=== PATIENT | female | born 1950 | race Hispanic/Latino ===

== ENCOUNTER 2017-11-13 20:23 | Inpatient (IN) | payer MEDICARE, OTHER ==
[2017-11-13] MEDS ORDERED: Albuterol-Ipratrop 3 mg / 0.5 (3 ml) UD INH STA ×3 (21:13→21:15)
--- NOTE | 2017-11-13 21:27 | ED PDOC ---
HPI: SOB/CHF/COPD Time Seen by Provider: 11/13/17 20:41 Chief Complaint (Nursing): Shortness Of Breath Chief Complaint (Provider): Shortness Of Breath History Per: Patient History/Exam Limitations: no limitations Onset/Duration Of Symptoms: Days (x this morning) Additional Complaint(s): Sara is a 67 year old female, with a history of COPD, who presents to the ED complaining of difficulty breathing that started this morning. Patient reports chest pressure this morning. Reports dry cough, but no wheezing, vomiting, diarrhea, chest pain, fever. Patient states she has taken her nebulizer a couple of times this afternoon with mild improvements. Patient is not on oxygen at home. PMD: Irma Past Medical History Reviewed: Historical Data, Nursing Documentation, Vital Signs Vital Signs: Last Vital Signs Temp 98 F 11/13/17 20:32 Pulse 81 11/13/17 23:04 Resp 17 11/13/17 23:25 BP 157/83 H 11/13/17 20:32 Pulse Ox 95 11/13/17 23:25 - Medical History PMH: Asthma, COPD, Hypercholesterolemia Denies: Chronic Kidney Disease - Surgical History Surgical History: No Surg Hx - Family History Family History: States: Unknown Family Hx - Home Medications Home Medications: Ambulatory Orders Medication Instructions Recorded Simvastatin [Zocor] 20 mg PO HS #0 tablet 07/09/16 Tiotropium [Spiriva] 18 mcg IH DAILY #0 cap 07/09/16 Fluticasone/Salmeterol 100/50 1 puff IH DAILY 11/13/17 [Advair Diskus 100/50] - Allergies Allergies/Adverse Reactions: Allergies Allergy/AdvReac Type Severity Reaction Status Date / Time acetylcysteine AdvReac ITCHING Verified 10/18/15 19:15 [From Mucomyst] Review of Systems ROS Statement: Except As Marked, All Systems Reviewed And Found Negative Constitutional: Negative for: Fever Cardiovascular: Positive for: Other (chest pressure). Negative for: Chest Pain Respiratory: Positive for: Cough (dry), Other (difficulty breathing). Negative for: Wheezing Gastrointestinal: Negative for: Vomiting, Diarrhea Physical Exam - Reviewed Nursing Documentation Reviewed: Yes Vital Signs Reviewed: Yes - Physical Exam Appears: Positive for: Well (Comfortable), No Acute Distress Head Exam: Positive for: ATRAUMATIC, NORMAL INSPECTION, NORMOCEPHALIC Skin: Positive for: Normal Color, Dry Eye Exam: Positive for: Normal appearance, EOMI, PERRL ENT: Positive for: Normal ENT Inspection Neck: Positive for: Normal Cardiovascular/Chest: Positive for: Regular Rate, Rhythm Respiratory: Positive for: Decreased Breath Sounds (bilaterally). Negative for : Wheezing Gastrointestinal/Abdominal: Positive for: Normal Exam Back: Positive for: Normal Inspection Extremity: Positive for: Normal ROM. Negative for: Deformity Neurologic/Psych: Positive for: Alert, Oriented (x 3). Negative for: Motor/ Sensory Deficits - Laboratory Results Result Diagrams: 11/13/17 21:35 11/13/17 21:35 - ECG ECG Rhythm: Positive for: Normal QRS, Normal ST Segment, Sinus Rhythm (Normal) Rate: 81 O2 Sat by Pulse Oximetry: 99 (RA) Pulse Ox Interpretation: Normal - Radiology X-Ray: Interpreted by Me, Viewed By Me X-Ray Interpretation: COPD - Progress Re-evaluation Time: 23:04 Condition: Re-examined, Improving,but remains with symptoms Nebulizer Treatments/Peak Flow - Duonebs Number of Bronchodilator Doses given?: 3 - Steroid Treatment Steroid: IV - Clinical Response Clinical Response: Improved Medical Decision Making Medical Decision Making: Time: 21:13 Impression(s): Shortness of breath Differentials include but not limited to: COPD Exacerbation, ACS, CHF, PE Plan: - EKG - BNP - BMP - Troponin I - CBC - D-Dimer - Chest X-Ray - Duoneb 3 mg/0.5 mg (3 ml) UD - Duoneb 3 mg/0.5 mg (3 ml) UD - Duoneb 3 mg/0.5 mg (3 ml) UD - SOLU-Medrol 125 mg IVP STAT - Peak Flow Pre/Post Treatment - Peak Flow Pre/Post Treatment D-Dimer, Quantitative Reveals 171 ng/mlDDU [within range] Scribe Attestation: Documented by Gen Carranza, acting as a scribe for Frederic Morales MD. Provider Scribe Attestation: All medical record entries made by the Scribe were at my direction and personally dictated by me. I have reviewed the chart and agree that the record accurately reflects my personal performance of the history, physical exam, medical decision making, and the department course for this patient. I have also personally directed, reviewed, and agree with the discharge instructions and disposition. Disposition - Clinical Impression Clinical Impression: COPD exacerbation - Patient ED Disposition Is Patient to be Admitted: Yes Discussed With DrFederico: Negro Solis Doctor Will See Patient In The: Hospital Counseled Patient/Family Regarding: Studies Performed, Diagnosis - Disposition Disposition Time: 11:00 Condition: FAIR - Pt Status Changed To: Hospital Disposition Of: Observation - POA Present On Arrival: None
[2017-11-13 21:42] LABS: BASO % 0.3 % (0.0-2.0); EOS # 0.1 K/uL (0.0-0.7); HEMOGLOBIN 13.5 g/dL (12.0-16.0); LYMPH # 1.1 K/uL (1.0-4.3); LYMPH % 15.7 % (20.0-40.0); MEAN CELL VOLUME 87.6 fl (81.0-99.0); MEAN CORPUSCULAR HEMOGLOBIN 28.8 pg (27.0-31.0); MEAN CORPUSCULAR HGB CONC 32.9 g/dL (33.0-37.0); MEAN PLATELET VOLUME 6.6 fl (7.2-11.7); MONO # 0.5 K/uL (0.0-0.8); MONO % 7.6 % (0.0-10.0); NEUT % 74.4 % (50.0-75.0); RBC 4.67 Mil/uL (3.80-5.20); RED CELL DISTRIBUTION WIDTH 14.5 % (11.5-14.5); WHITE BLOOD COUNT 6.8 K/uL (4.8-10.8)
[2017-11-13 21:52] LABS: BLOOD UREA NITROGEN 10 mg/dl (7-17); GFR AFRICAN-AMERICAN > 60; GFR NON-AFRICAN AMERICAN > 60
[2017-11-13 22:04] LABS: B-TYPE NATRIURETIC PEPTIDE 144 pg/ml (0-900)
[2017-11-14] MEDS ORDERED: methylPREDNISolone 80 MG in Sodium Chloride 0.9% 50 ML IVPB SCH (01:15)
[2017-11-14] MEDS: Albuterol-Ipratrop 3 mg / 0.5 (3 ml) UD INH SCH ×4 (02:21→19:26)
[2017-11-14 06:46] LABS: HEMOGLOBIN 13.5 g/dL (12.0-16.0); MEAN CELL VOLUME 87.3 fl (81.0-99.0); MEAN CORPUSCULAR HEMOGLOBIN 28.7 pg (27.0-31.0); MEAN CORPUSCULAR HGB CONC 32.8 g/dL (33.0-37.0); RBC 4.7 Mil/uL (3.80-5.20); RED CELL DISTRIBUTION WIDTH 14.1 % (11.5-14.5); WHITE BLOOD COUNT 6.2 K/uL (4.8-10.8)
[2017-11-14 06:59] LABS: BLOOD UREA NITROGEN 12 mg/dl (7-17); CALCIUM 8.9 mg/dL (8.4-10.2); GFR AFRICAN-AMERICAN > 60; GFR NON-AFRICAN AMERICAN > 60
[2017-11-14 08:06] LABS: ABG ALLEN TEST YES; ARTERIAL BLOOD GAS HCO3 28.1 mmol/L (21-28); ARTERIAL BLOOD GAS HEMOGLOBIN 14.2 g/dL (11.7-17.4); ARTERIAL BLOOD GAS O2 CAPACITY 19.1 mL/dL (16-24); ARTERIAL BLOOD GAS O2 CONTENT 18.7 ML/dL (15-23); ARTERIAL BLOOD GAS O2 SAT 98.1 % (95-98); ARTERIAL BLOOD GAS PCO2 50 mm/Hg (35-45); ARTERIAL BLOOD GAS PH 7.39 (7.35-7.45); ARTERIAL BLOOD GAS PO2 77 mm/Hg (80-100); ARTERIAL BLOOD GAS TCO2 31.8 mmol/L (22-28)
[2017-11-14] MEDS: Fluticasone-Salmeterol 250-50mcg Diskus IH SCH ×2 (08:15→21:05)
[2017-11-14] MEDS: Enoxaparin 40 mg Syringe SC SCH (08:16)
[2017-11-14] MEDS: Tiotropium 18 mcg Cap For Inhalation IH SCH (08:23)
[2017-11-14] MEDS: Azithromycin 500 MG in Sodium Chloride 0.9% 250 ML IVPB SCH (08:23)
[2017-11-14] MEDS: Promethazine 12.5 mg/10 ml Syrup PO PRN ×2 (08:24→15:46)
[2017-11-14] MEDS ORDERED: Sodium Chloride 3% for Inhalation 4 ML VIAL.NEB IH PRN (08:32)
[2017-11-14] MEDS ORDERED: Phenol 1.4% Throat Spray MT PRN (08:32)
--- NOTE | 2017-11-14 08:40 | RAD ---
PROCEDURE: CHEST RADIOGRAPH, 1 VIEW HISTORY: Dyspnea COMPARISON: 07/08/2016 FINDINGS: LUNGS: The lungs are hyperinflated and there is peribronchial thickening with chronic changes in both lungs. No focal consolidation. PLEURA: No pneumothorax or pleural fluid seen. CARDIOVASCULAR: Normal. OSSEOUS STRUCTURES: No significant abnormalities. VISUALIZED UPPER ABDOMEN: Normal. OTHER FINDINGS: None. IMPRESSION: No active pulmonary disease. COPD.
--- NOTE | 2017-11-14 08:52 | HP ---
HISTORY OF PRESENT ILLNESS: Ms. Cartagena is a 67-year-old female who was admitted via the Emergency Room because of progressively worsening shortness of breath and exercise intolerance x24 hours. She showed up in the Emergency Room after she was brought in by her daughter because of the above symptoms associated with dry cough and chest tightness. She was admitted after she received several bronchodilator therapies and oxygen and oxygen saturation was in the 80s. She denies chest pain or palpitations. PAST MEDICAL HISTORY: Remarkable for chronic obstructive pulmonary disease and hyperlipidemia. FAMILY HISTORY: Noncontributory. SOCIAL HISTORY: She quit smoking many years ago. Does not drink alcohol. Does not use drugs and lives at home with her . REVIEW OF SYSTEMS: Essentially remarkable for occasional shortness of breath. MEDICATIONS: Include simvastatin, Spiriva, Advair, and Proventil. PHYSICAL EXAMINATION: GENERAL: The patient is alert and oriented, appears to still have some dyspnea at rest and on mild exertion. VITAL SIGNS: Blood pressure is 157/83 with the pulse of 81, respiratory rate is 18 per minute, and O2 sat is 95%, but dropped to 80% on ambulation. Temperature is 98 degrees Fahrenheit. SKIN: Shows fair turgor. HEENT: Pupils are equal and reactive to light and accommodation. Mouth shows fair hygiene with mucous congestion of pharynx. LUNGS: Poor aeration bilaterally with wheezing and audible rales. HEART: Regular. BREASTS: Normal. ABDOMEN: Soft and nontender, no organomegaly. EXTREMITIES: Shows no edema or cyanosis. CENTRAL NERVOUS SYSTEM: Grossly intact. LABORATORY DATA: Remarkable for WBC of 6.8, hemoglobin of 13.5, and platelet count of 170,000. Sodium 145, potassium 4.0, BUN 10, creatinine 0.4, and serum glucose 99. EKG normal sinus rhythm. Chest x-ray official report pending, but read by me shows no acute cardiopulmonary pathology. Arterial blood gas done on room air; pH of 7.39, pCO2 of 50, pO2 of 77, bicarbonate of 28.1, and O2 sat of 98.1. IMPRESSION: Acute exacerbation of chronic obstructive pulmonary disease, probably secondary to upper respiratory tract infection, and history of hyperlipidemia. PLAN: The plan is intravenous steroids as well as bronchodilators, oxygen, antitussives were given. Sputum will be sent for gram stain and cultures. The patient will be discharged home once clinically stable. Negro Solis MD [facility] # [phone]
--- NOTE | 2017-11-14 11:42 | CARD ---
APPROVED REPORT EKG Measurement Heart [id number] <Conclusion> Normal sinus rhythm Normal ECG
[2017-11-15] MEDS: Albuterol-Ipratrop 3 mg / 0.5 (3 ml) UD INH SCH ×4 (01:01→19:17)
[2017-11-15] MEDS: Enoxaparin 40 mg Syringe SC SCH (09:40)
[2017-11-15] MEDS: Fluticasone-Salmeterol 250-50mcg Diskus IH SCH ×2 (09:40→21:24)
[2017-11-15] MEDS: Tiotropium 18 mcg Cap For Inhalation IH SCH (09:41)
[2017-11-15] MEDS: Azithromycin 500 MG in Sodium Chloride 0.9% 250 ML IVPB SCH (09:46)
[2017-11-15] MEDS ORDERED: Azithromycin 500 MG in Sodium Chloride 0.9% 250 ML IVPB SCH (10:15)
--- NOTE | 2017-11-15 10:23 | CP.PCM.PN ---
Subjective - Date & Time of Evaluation Date of Evaluation: 11/15/17 Time of Evaluation: 10:23 - Subjective Subjective: still dyspneic on mild exertion coughing no chest pain Objective - Vital Signs/Intake and Output Vital Signs (last 24 hours): Temp Pulse Resp BP Pulse Ox 98 F 88 20 113/68 98 11/15/17 08:13 11/15/17 08:13 11/15/17 08:13 11/15/17 08:13 11/15/17 08:13 - Medications Medications: Current Medications Albuterol/Ipratropium (Duoneb 3 Mg/0.5 Mg (3 Ml) Ud) 3 ml INH RQ6 [facility] Last Admin: 11/15/17 07:25 Dose: 3 ml Atorvastatin Calcium (Lipitor) 10 mg PO HS [facility] Last Admin: 11/14/17 21:05 Dose: 10 mg Enoxaparin Sodium (Lovenox) 40 mg SC DAILY LORE PRN Reason: Protocol Last Admin: 11/15/17 09:40 Dose: 40 mg Azithromycin 500 mg/ Sodium (Chloride) 250 mls @ 250 mls/hr IVPB DAILY LORE PRN Reason: Protocol Methylprednisolone (Solu-Medrol) 80 mg IV Q8 [facility] Last Admin: 11/15/17 00:29 Dose: 80 mg Phenol/Menthol (Phenaseptic 1.4% Throat [place]) 1 spry MT Q2 PRN PRN Reason: Sore Throat Last Admin: 11/14/17 14:22 Dose: 1 spr Promethazine HCl (Phenergan Syrup) 12.5 mg PO Q6 PRN PRN Reason: Cough Last Admin: 11/14/17 15:46 Dose: 12.5 mg Fluticasone/Salmeterol (Advair Diskus 250/50) 1 puff IH Q12 [facility] Last Admin: 11/15/17 09:40 Dose: 1 inh Tiotropium [place] (Spiriva) 18 mcg IH DAILY [facility] Last Admin: 11/15/17 09:41 Dose: 18 mcg - Labs Labs: 11/14/17 05:30 11/14/17 05:30 - Constitutional Appears: Chronically Ill - Head Exam Head Exam: ATRAUMATIC, NORMAL INSPECTION, NORMOCEPHALIC - Eye Exam Eye Exam: EOMI, Normal appearance, PERRL Pupil Exam: NORMAL ACCOMODATION, PERRL - ENT Exam ENT Exam: Mucous Membranes Moist, Normal Exam - Neck Exam Neck Exam: Full ROM, Normal Inspection. absent: Lymphadenopathy - Respiratory Exam Respiratory Exam: Decreased Breath Sounds, Rales, Wheezes, NORMAL BREATHING PATTERN - Cardiovascular Exam Cardiovascular Exam: REGULAR RHYTHM, +S1, +S2. absent: Murmur - GI/Abdominal Exam GI & Abdominal Exam: Soft, Normal Bowel Sounds. absent: Tenderness - Rectal Exam Rectal Exam: NORMAL INSPECTION - Extremities Exam Extremities Exam: Full ROM, Normal Capillary Refill, Normal Inspection. absent : Joint Swelling, Pedal Edema - Back Exam Back Exam: NORMAL INSPECTION - Neurological Exam Neurological Exam: Alert, Awake, CN II-XII Intact, Normal Gait, Oriented x3 - Psychiatric Exam Psychiatric exam: Normal Affect, Normal Mood - Skin Skin Exam: Dry, Intact, Normal Color, Warm Assessment and Plan - Assessment and Plan (Free Text) Assessment: copd exac Plan: taper steroids d/c in am if stable
[2017-11-15] MEDS: MethylPREDNISolone 40 mg Vial IV SCH ×2 (11:34→21:24)
[2017-11-15] MEDS: Promethazine 12.5 mg/10 ml Syrup PO PRN (16:15)
[2017-11-15 23:55] VITALS: O2SAT 95
[2017-11-16] MEDS: Albuterol-Ipratrop 3 mg / 0.5 (3 ml) UD INH SCH ×2 (01:38→07:06)
[2017-11-16] MEDS: Promethazine 12.5 mg/10 ml Syrup PO PRN (03:48)
--- NOTE | 2017-11-16 08:36 | CP.PCM.DIS ---
Provider - Provider Date of Admission: 11/14/17 08:26 Attending physician: Negro Solis MD Time Spent in preparation of Discharge (in minutes): 30 Diagnosis - Discharge Diagnosis (1) Upper respiratory infection Status: Acute (2) COPD exacerbation Status: Acute (3) Hyperlipidemia Status: Acute Hospital Course - Lab Results Lab Results: Most Recent Lab Values WBC 6.2 K/uL (4.8-10.8) 11/14/17 05:30 RBC 4.70 Mil/uL (3.80-5.20) 11/14/17 05:30 Hgb 13.5 g/dL (12.0-16.0) 11/14/17 05:30 Hct 41.1 % (34.0-47.0) 11/14/17 05:30 MCV 87.3 fl (81.0-99.0) 11/14/17 05:30 MCH 28.7 pg (27.0-31.0) 11/14/17 05:30 MCHC 32.8 g/dL (33.0-37.0) L 11/14/17 05:30 RDW 14.1 % (11.5-14.5) 11/14/17 05:30 Plt Count 183 K/uL (130-400) 11/14/17 05:30 MPV 6.6 fl (7.2-11.7) L 11/13/17 21:35 Neut % (Auto) 74.4 % (50.0-75.0) 11/13/17 21:35 Lymph % (Auto) 15.7 % (20.0-40.0) L 11/13/17 21:35 [place] % (Auto) 7.6 % (0.0-10.0) 11/13/17 21:35 Eos % (Auto) 2.0 % (0.0-4.0) 11/13/17 21:35 Baso % (Auto) 0.3 % (0.0-2.0) 11/13/17 21:35 Neut # (Auto) 5.0 K/uL (1.8-7.0) 11/13/17 21:35 Lymph # (Auto) 1.1 K/uL (1.0-4.3) 11/13/17 21:35 [place] # (Auto) 0.5 K/uL (0.0-0.8) 11/13/17 21:35 Eos # (Auto) 0.1 K/uL (0.0-0.7) 11/13/17 21:35 Baso # (Auto) 0.0 K/uL (0.0-0.2) 11/13/17 21:35 D-Dimer, Quantitative 171 ng/mlDDU (0-230) 11/13/17 21:35 pCO2 50 mm/Hg (35-45) H 11/14/17 08:00 pO2 77 mm/Hg (80-100) L 11/14/17 08:00 HCO3 28.1 mmol/L (21-28) H 11/14/17 08:00 ABG pH 7.39 (7.35-7.45) 11/14/17 08:00 ABG Total CO2 31.8 mmol/L (22-28) H 11/14/17 08:00 ABG O2 Saturation 98.1 % (95-98) H 11/14/17 08:00 ABG O2 Content 18.7 ML/dL (15-23) 11/14/17 08:00 ABG Base Excess 4.2 mmol/L (-2.0-3.0) H 11/14/17 08:00 ABG Hemoglobin 14.2 g/dL (11.7-17.4) 11/14/17 08:00 ABG Carboxyhemoglobin 2.4 % (0.5-1.5) H 11/14/17 08:00 POC ABG HHb (Measured) 1.8 % (0.0-5.0) 11/14/17 08:00 ABG Methemoglobin 2.4 % (0.0-3.0) 11/14/17 08:00 ABG O2 Capacity 19.1 mL/dL (16-24) 11/14/17 08:00 Calvin Test Yes 11/14/17 08:00 A-a O2 Difference 10.0 mm/Hg 11/14/17 08:00 Hgb O2 Saturation 93.5 % (95.0-98.0) L 11/14/17 08:00 Vent Mode Ra 11/14/17 08:00 FiO2 21.0 % 11/14/17 08:00 Sodium 142 mmol/l (132-148) 11/14/17 05:30 Potassium 3.6 MMOL/L (3.6-5.0) 11/14/17 05:30 Chloride 102 mmol/L (98-107) 11/14/17 05:30 Carbon Dioxide 31 mmol/L (22-30) H 11/14/17 05:30 Anion Gap 13 (10-20) 11/14/17 05:30 BUN 12 mg/dl (7-17) 11/14/17 05:30 Creatinine 0.4 mg/dl (0.7-1.2) L 11/14/17 05:30 Est GFR ( Amer) > 60 11/14/17 05:30 Est GFR (Non-Af Amer) > 60 11/14/17 05:30 Random Glucose 178 mg/dL (65-105) H 11/14/17 05:30 Calcium 8.9 mg/dL (8.4-10.2) 11/14/17 05:30 Troponin I 0.0210 ng/mL (0.00-0.120) 11/13/17 21:35 NT-Pro-B Natriuret Pep 144 pg/ml (0-900) 11/13/17 21:35 - Hospital Course Hospital Course: cough and sob improved Discharge Exam - Head Exam Head Exam: ATRAUMATIC, NORMAL INSPECTION, NORMOCEPHALIC - Eye Exam Eye Exam: EOMI, Normal appearance, PERRL Pupil Exam: NORMAL ACCOMODATION, PERRL - GI/Abdominal Exam GI & Abdominal Exam: Normal Bowel Sounds - Rectal Exam Rectal Exam: NORMAL INSPECTION - Neurological Exam Neurological exam: Alert, CN II-XII Intact, Normal Gait, Oriented x3, Reflexes Normal - Psychiatric Exam Psychiatric exam: Normal Affect, Normal Mood - Skin Skin Exam: Dry, Intact, Normal Color, Warm Discharge Plan - Follow Up Plan Condition: FAIR Disposition: HOME/ ROUTINE Patient education suggested?: Yes Instructions: Exacerbation of COPD (DC) Additional Instructions: follow up with your primary MD 1 week Referrals: Negro Solis MD [Staff Provider] -
[2017-11-16] MEDS: Enoxaparin 40 mg Syringe SC SCH (09:10)
[2017-11-16] MEDS: Fluticasone-Salmeterol 250-50mcg Diskus IH SCH (09:10)
[2017-11-16 09:11] VITALS: BP 126/71; PULSE 76; RESP 20; TEMP 98.2
[2017-11-16] MEDS: MethylPREDNISolone 40 mg Vial IV SCH (09:11)
[2017-11-16] MEDS: Tiotropium 18 mcg Cap For Inhalation IH SCH (09:13)
[2017-11-16] MEDS ORDERED: Azithromycin 500 MG in Sodium Chloride 0.9% 250 ML IVPB SCH (10:15)
== END 2017-11-16 13:21 | disposition home health service (06) | DRG 192 ==
LOC: H.ER 20:23 → H.ERHOLD 23:05 → H.MEDSURG1 11-14 00:30 → OBSVTOIN 11-14 08:26
PROVIDERS: ADMIT Internal Medicine Pulmonary Disease; ATTEND Internal Medicine Pulmonary Disease
PROC: 3E0F73Z Introduction of Anti-inflammatory into Respiratory Tract, Via Natural or Artificial Opening (ICD-10-PCS; principal; 2017-11-14)
DX: J44.1 Chronic obstructive pulmonary disease with (acute) exacerbation (principal); J06.9 Acute upper respiratory infection, unspecified; E78.5 Hyperlipidemia, unspecified; Z87.891 Personal history of nicotine dependence

== ENCOUNTER 2017-11-23 06:15 | Inpatient (IN) | payer MEDICARE, OTHER ==
[2017-11-23] MEDS ORDERED: Albuterol-Ipratrop 3 mg / 0.5 (3 ml) UD INH STA ×2 (06:36)
[2017-11-23] MEDS ORDERED: Magnesium Sulfate 2 gm/50 ml 2 GM/50 ML BAG IVPB ONE (06:37)
--- NOTE | 2017-11-23 06:45 | ED PDOC ---
HPI: SOB/CHF/COPD Time Seen by Provider: 11/23/17 06:18 Chief Complaint (Nursing): Shortness Of Breath Chief Complaint (Provider): COPD Exacerbation History Per: Patient Onset/Duration Of Symptoms: Days (1 day ago) Current Symptoms Are (Timing): Still Present Additional Complaint(s): 67 yo female, brought in by EMS, with a history of COPD, presents to the ED complaining of worsened shortness of breath and uncontrollable cough, associated with chest pain, onset of 1 day ago. She denies any fevers, chills, recent travel, or sick contacts. Of note, patient reports that she was recently admitted for COPD exacerbation and on arrival to ED she was given 2 duonebs and 125mg of Solumedrol, but was still exhibiting moderate respiratory distress. PCP: Negro Solis I Past Medical History Reviewed: Historical Data, Nursing Documentation, Vital Signs Vital Signs: Last Vital Signs Temp 98.1 F 11/23/17 21:09 Pulse 90 11/23/17 21:09 Resp 18 11/23/17 21:09 BP 152/61 H 11/23/17 21:09 Pulse Ox 92 L 11/23/17 21:09 - Medical History PMH: Asthma, Bronchitis, COPD, Hypercholesterolemia Denies: HIV, Chronic Kidney Disease - Surgical History Other surgeries: bilateral cataract - Family History Family History: States: Unknown Family Hx - Social History Current smoker - smoking cessation education provided: No Ex-Smoker (has not smoked in the last 12 months): Yes Alcohol: None Drugs: Denies - Home Medications Home Medications: Ambulatory Orders Medication Instructions Recorded Simvastatin [Zocor] 20 mg PO HS #0 tablet 07/09/16 Tiotropium [Spiriva] 18 mcg IH DAILY #0 cap 07/09/16 Fluticasone/Salmeterol 250/50 1 puff IH Q12 1 Days #1 puff 11/16/17 [Advair Diskus 250/50] - Allergies Allergies/Adverse Reactions: Allergies Allergy/AdvReac Type Severity Reaction Status Date / Time acetylcysteine AdvReac ITCHING Verified 10/18/15 19:15 [From Mucomyst] Review of Systems ROS Statement: Except As Marked, All Systems Reviewed And Found Negative Constitutional: Negative for: Fever, Chills Cardiovascular: Positive for: Chest Pain Respiratory: Positive for: Cough, Shortness of Breath Physical Exam - Reviewed Nursing Documentation Reviewed: Yes Vital Signs Reviewed: Yes - Physical Exam Appears: Positive for: Well, Non-toxic, No Acute Distress Head Exam: Positive for: ATRAUMATIC, NORMAL INSPECTION, NORMOCEPHALIC Skin: Positive for: Normal Color, Warm, DRY Eye Exam: Positive for: EOMI, Normal appearance, PERRL ENT: Positive for: Normal ENT Inspection Neck: Positive for: Normal, Painless ROM Cardiovascular/Chest: Positive for: Regular Rate, Rhythm. Negative for: Murmur Respiratory: Positive for: Wheezing (faint), Respiratory Distress (moderate), Other (tachypnea; poor lung entry bilaterally) Gastrointestinal/Abdominal: Positive for: Normal Exam, Soft. Negative for: Tenderness Back: Positive for: Normal Inspection Extremity: Positive for: Normal ROM. Negative for: Pedal Edema, Deformity Neurologic/Psych: Positive for: Oriented (x3). Negative for: Motor/Sensory Deficits - Laboratory Results Result Diagrams: 11/23/17 06:45 11/23/17 06:45 - ECG O2 Sat by Pulse Oximetry: 95 (RA) Pulse Ox Interpretation: Normal Medical Decision Making Medical Decision Making: Time: --06:36 Impression: --COPD Exacerbation in setting of recent exacerbation Plan: --VBG --ECG --B-Type Natriuretic --labs --Troponin I --Chest X-ray --Albuterol 3ml INH x2 --magnesium Sulfate 2gm 2gm in 50ml IVPB --Peak Flow Pre/Post Tx Reassess --06:34 Provider was informed that patient received 125mg of Solumedrol and 2 duonebs in the field. Patient still exhibits moderate respiratory distress. --06:38 Will continue to administer duonebs, give magnesium, and consider for admission. --07:[address] Thomson pending workup and re-eval Scribe Attestation: Documented by Loki Hernandez acting as a scribe for Rohan Hendrix MD. Provider Attestation: All medical record entries made by the Scribe were at my direction and personally dictated by me. I have reviewed the chart and agree that the record accurately reflects my personal performance of the history, physical exam, medical decision making, and the department course for this patient. I have also personally directed, reviewed, and agree with the discharge instructions and disposition. Disposition - Clinical Impression Clinical Impression: COPD exacerbation, Respiratory failure - Patient ED Disposition Is Patient to be Admitted: Transfer of Care - Disposition Disposition: Transfer of Care Disposition Time: 07:00 Condition: FAIR Patient Signed Over To: Suhail Thomson III Handoff Comments: pending workup and re-eval
[2017-11-23] MEDS ORDERED: Magnesium Sulfate 2 gm/50 ml 2 GM/50 ML BAG ONE (06:48)
[2017-11-23] MEDS ORDERED: Albuterol-Ipratrop 3 mg / 0.5 (3 ml) UD ONE ×2 (06:48→14:14)
[2017-11-23 07:11] LABS: VENOUS BLOOD GAS BASE EXCESS 8.1 mmol/L (0.0-2.0); VENOUS BLOOD GAS PCO2 58 mmHg (40-60); VENOUS BLOOD GAS PO2 34 mm/Hg (30-55); VENOUS BLOOD PH 7.39 (7.32-7.43)
--- NOTE | 2017-11-23 07:21 | ED PDOC ---
- Laboratory Results Result Diagrams: 11/23/17 06:45 - ECG O2 Sat by Pulse Oximetry: 90 Medical Decision Making Medical Decision Making: Patient signed out to me by Dr. Hendrix @ 07:00, pending admission. re-eval 805am work breathing improved but remains mildly tachypneic w hypoxia SPO2 88% on 3L NC Lungs w/ wheeze b/l but moving better air than on arrival. Mentation normal. CXR on my read reveals hyperinflation D/w Dr Solis for tele admission. Scribe Attestation: Documented by Gen Carranza, acting as a scribe for Suhail Thomson III, DO Provider Scribe Attestation: All medical record entries made by the Scribe were at my direction and personally dictated by me. I have reviewed the chart and agree that the record accurately reflects my personal performance of the history, physical exam, medical decision making, and the department course for this patient. I have also personally directed, reviewed, and agree with the discharge instructions and disposition. Disposition Discussed With : Negro Solis Doctor Will See Patient In The: Hospital - Clinical Impression Clinical Impression: COPD exacerbation, Respiratory failure - POA Present On Arrival: None - Disposition Disposition: Admitted as In-Patient Disposition Time: 08:10 Condition: FAIR Forms: [employer])
[2017-11-23 07:22] LABS: BASO % 0.2 % (0.0-2.0); EOS # 0.2 K/uL (0.0-0.7); EOS % 1.4 % (0.0-4.0); HEMOGLOBIN 14.5 g/dL (12.0-16.0); LYMPH # 2.1 K/uL (1.0-4.3); MEAN CELL VOLUME 87.5 fl (81.0-99.0); MEAN CORPUSCULAR HGB CONC 33.1 g/dL (33.0-37.0); MEAN PLATELET VOLUME 7.6 fl (7.2-11.7); MONO # 0.9 K/uL (0.0-0.8); MONO % 5.4 % (0.0-10.0); NEUT # 13.1 K/uL (1.8-7.0); NRBC % 0.1 % (0.0-0.0); RBC 5.02 Mil/uL (3.80-5.20); RED CELL DISTRIBUTION WIDTH 14.5 % (11.5-14.5); WHITE BLOOD COUNT 16.4 K/uL (4.8-10.8)
[2017-11-23 08:23] LABS: B-TYPE NATRIURETIC PEPTIDE 59.3 pg/ml (0-900); BLOOD UREA NITROGEN 16 mg/dl (7-17); CALCIUM 8.8 mg/dL (8.4-10.2); GFR AFRICAN-AMERICAN > 60; GFR NON-AFRICAN AMERICAN > 60
[2017-11-23] MEDS ORDERED: Sodium Chloride 3% for Inhalation 4 ML VIAL.NEB IH PRN (09:53)
[2017-11-23] MEDS ORDERED: methylPREDNISolone 80 MG in Sodium Chloride 0.9% 50 ML IVPB SCH (10:00)
[2017-11-23 10:27] LABS: ABG ALLEN TEST YES; ARTERIAL BLOOD GAS HCO3 29.2 mmol/L (21-28); ARTERIAL BLOOD GAS HEMOGLOBIN 14.8 g/dL (11.7-17.4); ARTERIAL BLOOD GAS O2 CAPACITY 19.5 mL/dL (16-24); ARTERIAL BLOOD GAS O2 CONTENT 17.7 ML/dL (15-23); ARTERIAL BLOOD GAS O2 SAT 90.6 % (95-98); ARTERIAL BLOOD GAS PCO2 49 mm/Hg (35-45); ARTERIAL BLOOD GAS PH 7.42 (7.35-7.45); ARTERIAL BLOOD GAS PO2 51 mm/Hg (80-100); ARTERIAL BLOOD GAS TCO2 33.3 mmol/L (22-28)
--- NOTE | 2017-11-23 10:31 | CARD ---
APPROVED REPORT EKG Measurement Heart [id number] <Conclusion> Normal sinus rhythm Rightward axis Nonspecific ST and T wave abnormality Abnormal ECG
[2017-11-23] MEDS ORDERED: levoFLOXacin 500 mg in D5W 500 MG/100 ML BAG IVPB ONE (11:06)
[2017-11-23] MEDS: Fluticasone-Salmeterol 250-50mcg Diskus IH SCH ×2 (11:07→22:01)
[2017-11-23] MEDS: levoFLOXacin 500 mg in D5W 500 MG/100 ML BAG IVPB SCH (11:14)
--- NOTE | 2017-11-23 11:50 | HP ---
HISTORY OF PRESENT ILLNESS: Ms. Cartagena is a 67-year-old female who was admitted via the emergency room with shortness of breath, exercise intolerance and chest tightness for the past several days prior to presentation. She was recently discharged from [facility] after therapy for acute exacerbation of chronic obstructive pulmonary disease and upper respiratory tract infection. She refused home oxygen and refused to stay in the Transitional Care or to stay longer in the hospital and was discharged. She now returns with acute exacerbation of chronic obstructive pulmonary disease. PAST MEDICAL HISTORY: Remarkable for COPD and hyperlipidemia. FAMILY HISTORY: Noncontributory. SOCIAL HISTORY: She quit smoking years ago. Does not drink alcohol. Does not use drugs and lives at home with her . REVIEW OF SYSTEMS: Essentially remarkable for occasional shortness of breath and exercise intolerance. PHYSICAL EXAMINATION: GENERAL: The patient is alert, oriented, appears to be still somewhat short of breath at rest and . VITAL SIGNS: She is presently on oxygen 2 liters per minute via nasal cannula, O2 saturation is 90%, blood pressure is 120/53, pulse of 80, and respiratory rate of 22 per minute. She is febrile. SKIN: Shows fair turgor. HEENT: Pupils are equal and reactive to light and accommodation. Mouth shows poor hygiene with mucous engorgement of pharynx. NECK: JVP flat. LUNGS: Bilateral rales and wheezing with dullness at the bases. CARDIOVASCULAR: Heart reveals S1 and S2. GASTROINTESTINAL: Abdomen is soft, nontender and no organomegaly. EXTREMITIES: Show no edema or cyanosis. NEUROLOGIC: Central nervous system exam is grossly intact. LABORATORY AND DIAGNOSTIC STUDIES: Laboratory data and chest x-ray reviewed. IMPRESSION AND PLAN: Acute exacerbation of chronic obstructive pulmonary disease and upper respiratory tract infection. The plan is intravenous steroids, intravenous antibiotics as well as bronchodilators and oxygen. The patient advised to obtain home oxygen prior to being discharged at this time. She in the hospital for further therapy and evaluation. Negro Solis MD cc:
--- NOTE | 2017-11-23 13:26 | RAD ---
HISTORY: Exacerbation, COPD COMPARISON: 11/13/2017. FINDINGS: LUNGS: Simple PLEURA: No significant pleural effusion identified, no pneumothorax apparent. CARDIOVASCULAR: Normal. OSSEOUS STRUCTURES: No significant abnormalities. VISUALIZED UPPER ABDOMEN: Normal. OTHER FINDINGS: None. IMPRESSION: No active disease. No significant interval change compared to the prior examination(s).
[2017-11-23] MEDS: Albuterol-Ipratrop 3 mg / 0.5 (3 ml) UD INH SCH (14:16)
[2017-11-23] MEDS ORDERED: MethylPREDNISolone 40 mg Vial ONE (19:31)
[2017-11-24] MEDS: Albuterol-Ipratrop 3 mg / 0.5 (3 ml) UD INH SCH ×4 (00:59→19:27)
[2017-11-24 06:21] LABS: BASO % 0.1 % (0.0-2.0); HEMOGLOBIN 13.6 g/dL (12.0-16.0); LYMPH # 0.9 K/uL (1.0-4.3); LYMPH % 5.4 % (20.0-40.0); MEAN CELL VOLUME 87.5 fl (81.0-99.0); MEAN CORPUSCULAR HEMOGLOBIN 28.4 pg (27.0-31.0); MEAN CORPUSCULAR HGB CONC 32.5 g/dL (33.0-37.0); MEAN PLATELET VOLUME 7.3 fl (7.2-11.7); MONO # 0.5 K/uL (0.0-0.8); MONO % 2.9 % (0.0-10.0); NEUT # 15.4 K/uL (1.8-7.0); NEUT % 91.6 % (50.0-75.0); PLATELET COUNT 269 K/uL (130-400); RBC 4.78 Mil/uL (3.80-5.20); RED CELL DISTRIBUTION WIDTH 14.1 % (11.5-14.5); WHITE BLOOD COUNT 16.8 K/uL (4.8-10.8)
[2017-11-24 06:53] LABS: BLOOD UREA NITROGEN 17 mg/dl (7-17); CALCIUM 8.8 mg/dL (8.4-10.2); GFR AFRICAN-AMERICAN > 60; GFR NON-AFRICAN AMERICAN > 60
[2017-11-24] MEDS: Fluticasone-Salmeterol 250-50mcg Diskus IH SCH ×2 (08:28→21:04)
--- NOTE | 2017-11-24 08:52 | CP.PCM.PN ---
Subjective - Date & Time of Evaluation Date of Evaluation: 11/24/17 Time of Evaluation: 08:52 - Subjective Subjective: SOB IMPROVING STILL COUGHING Objective - Vital Signs/Intake and Output Vital Signs (last 24 hours): Temp Pulse Resp BP Pulse Ox 98.3 F 75 18 104/60 97 11/24/17 08:01 11/24/17 08:01 11/24/17 08:01 11/24/17 08:01 11/24/17 08:01 - Medications Medications: Current Medications Albuterol/Ipratropium (Duoneb 3 Mg/0.5 Mg (3 Ml) Ud) 3 ml INH RQ6 [facility] Last Admin: 11/24/17 07:26 Dose: 3 ml Atorvastatin Calcium (Lipitor) 10 mg PO HS [facility] Last Admin: 11/23/17 22:01 Dose: 10 mg Famotidine (Pepcid) 20 mg PO BID [facility] Last Admin: 11/24/17 08:29 Dose: 20 mg Levofloxacin/Dextrose (Levaquin 500mg) 500 mg in 100 mls @ 100 mls/hr IVPB DAILY [facility] PRN Reason: Protocol Last Admin: 11/23/17 11:14 Dose: 100 mls/hr Methylprednisolone (Solu-Medrol) 80 mg IV Q8H [facility] Last Admin: 11/24/17 03:32 Dose: 80 mg Fluticasone/Salmeterol (Advair Diskus 250/50) 1 puff IH Q12 [facility] Last Admin: 11/24/17 08:28 Dose: 1 puff - Labs Labs: 11/24/17 05:50 11/24/17 05:50 - Constitutional Appears: Chronically Ill - Head Exam Head Exam: ATRAUMATIC, NORMAL INSPECTION, NORMOCEPHALIC - Eye Exam Eye Exam: EOMI, Normal appearance, PERRL Pupil Exam: NORMAL ACCOMODATION, PERRL - ENT Exam ENT Exam: Mucous Membranes Moist, Normal Exam - Neck Exam Neck Exam: Full ROM, Normal Inspection. absent: Lymphadenopathy - Respiratory Exam Respiratory Exam: Decreased Breath Sounds, Prolonged Expiratory Phase, Rales, Wheezes, NORMAL BREATHING PATTERN - Cardiovascular Exam Cardiovascular Exam: REGULAR RHYTHM, +S1, +S2. absent: Murmur - GI/Abdominal Exam GI & Abdominal Exam: Soft, Normal Bowel Sounds. absent: Tenderness - Rectal Exam Rectal Exam: NORMAL INSPECTION - Extremities Exam Extremities Exam: Full ROM, Normal Capillary Refill, Normal Inspection. absent : Joint Swelling, Pedal Edema - Back Exam Back Exam: NORMAL INSPECTION - Neurological Exam Neurological Exam: Alert, Awake, CN II-XII Intact, Normal Gait, Oriented x3 - Psychiatric Exam Psychiatric exam: Normal Affect, Normal Mood - Skin Skin Exam: Dry, Intact, Normal Color, Warm Assessment and Plan - Assessment and Plan (Free Text) Assessment: ACUTE EXAC OF COPD URI HYPOXEMIA Plan: ORDER HOME 02 CONTINUE CURRENT RX
[2017-11-24] MEDS: levoFLOXacin 500 mg in D5W 500 MG/100 ML BAG IVPB SCH (09:33)
[2017-11-24 09:56] LABS: LYMPHOCYTE 6 % (20-50); MONOCYTE 2 % (0-10); NEUTROPHIL 92 % (42-75); PLATELET ESTIMATE NORMAL (NORMAL); TOTAL CELLS COUNTED 100
[2017-11-24 09:58] LABS: LARGE PLATELETS PRESENT
[2017-11-24 09:59] LABS: TOXIC GRANULATION PRESENT
[2017-11-24] MEDS: Promethazine 12.5 mg/10 ml Syrup PO SCH ×3 (10:52→21:04)
--- NOTE | 2017-11-24 14:57 | PQF GENQUE ---
Dr. Solis, Please provide specificity regarding respiratory failure: if ruled in versus ruled out: the diagnosis is listed once and then it is dropped 1. Please specify acuity: Acute Chronic Acute on chronic Other (please specify) Clinically unable to determine Unknown 2. Please specify type: With hypercapnia With hypoxia With hypercapnia and hypoxia Other (please specify) Clinically unable to determine Unknown 3. Please specify underlying cause: if known Due to procedure Due to trauma Due to underlying respiratory disease (please specify) Other cause (please specify) Clinically unable to determine Unknown ER:Respiratory: Positive for: Wheezing (faint), Respiratory Distress (moderate) , Other (tachypnea; poor lung entry bilaterally Patient still exhibits moderate respiratory distress. Reassess --06:34 Provider was informed that patient received 125mg of Solumedrol and 2 duonebs in the field. Patient still exhibits moderate respiratory distress. --06:38 Will continue to administer duonebs, give magnesium re-eval 805am work breathing improved but remains mildly tachypneic w hypoxia SPO2 88% on 3L NC Lungs w/ wheeze b/l but moving better air than on arrival. Clinical Impression :COPD exacerbation, Respiratory failure H and P: Physical Exam: The patient is alert, oriented, appears to be still somewhat short of breath at rest and . VITAL SIGNS: She is presently on oxygen 2 liters per minute via nasal cannula, O2 saturation is 90%, Impression: Acute exacerbation of chronic obstructive pulmonary disease and upper respiratory tract infection 11/24: Attending Assessment: ACUTE EXAC OF COPD ,URI , HYPOXEMIA Plan: ORDER HOME 02 CONTINUE CURRENT RX This form is a permanent part of the medical record Clarification of your documentation is requested to better reflect the severity of illness and intensity of treatment of your patient. Indicators present [] Specify: [] [] Specify: [] [] Specify: [] [] Specify: [] Location in the medical record that reflects the above clinical findings: [] Treatment Provided: [] PHYSICIAN'S RESPONSE Based on your medical judgment of the clinical indicators outlined above please clarify the following: X] Practitioner response ---ACUTE HYPOXEMIC RESPIRATORY FAILURE DUE TO COPD [] If unable to determine, please check the box, sign and date. Present On Admission (POA) Indicator: [] Present at the time of admission [] Not present at the time of admission [] Clinically Undetermined In responding to this query, please exercise your independent professional judgment. The fact that a question is asked does not imply that any particular answer is desired or expected. Thank you for your clarification on this documentation. If you have any questions please call. * Thank you, Sita Dee RN ext. #[phone] MTDD
[2017-11-25] MEDS: Albuterol-Ipratrop 3 mg / 0.5 (3 ml) UD INH SCH ×3 (00:59→20:02)
[2017-11-25] MEDS: Promethazine 12.5 mg/10 ml Syrup PO SCH ×4 (04:35→22:53)
--- NOTE | 2017-11-25 08:27 | PCM.RRT ---
[employer] SAFETY PROGRAM COORDINATOR Nurse Assessment - Situation Location: 404-1 [employer] PROGRAM COORDINATOR Reason for Call: Chest Pain [employer] S[employer] PROGRAM COORDINATOR Called By: RN - IV IV Inserted during [employer] S[employer] PROGRAM COORDINATOR?: No - Ventilator Settings Peak Flow: 100 - Diagnostic Test Ordered EKG: Yes (NSR, no evidence of acute ST-T wave changes) Chest X-Ray: No CT Scan: No I.Reason for [employer] SAFETY PROGRAM COORDINATOR - A) Acute Change in Patient: Subjective: [employer] SAFETY PROGRAM COORDINATOR was called by nurse for a 67 y/o F with PMHx of COPD admitted with COPD exacerbation who was c/o low chest pain/tightness sensation. On arrival patient was seen awake, alert, and oriented x3. Patient states that the pain is located in her lower ribs bilateral, aggravates with cough, and self-touch, no radiating. Denies N/V, epigastric or abdominal pain, or other associated symptom. - Neurological Status (Select all that apply): Alert, Oriented - Respiratory Oxygen Delivery Method: Nasal Cannula @L/min (2 LPM) - Constitutional Appears: Non-toxic, No Acute Distress - Respiratory Exam Respiratory Exam: Chest Wall Tenderness (tenderness to palpation of lower ribs bilateral), Clear to Ausculation Bilateral, NORMAL BREATHING PATTERN. absent: Accessory Muscle Use, Rales, Rhonchi, Wheezes, Respiratory Distress - Cardiovascular Exam Cardiovascular Exam: REGULAR RHYTHM, RRR, +S1, +S2. absent: Bradycardia, Tachycardia - GI/Abdominal Exam GI & Abdominal Exam: Soft, Normal Bowel Sounds. absent: Distended, Guarding, Tenderness, Rebound - Neurological Exam Neurological Exam: Alert, Awake, Oriented x3 - Extremities Exam Extremities Exam: Normal Inspection. absent: Calf Tenderness, Pedal Edema Plan - Assessment of Findings&Treatment Plan A/P: 67 y/o F with h/o COPD admitted with COPD exacerbation c/o ribs pain associated with cough. Plan: Most likely musculoskeletal pain, reproducible with palpation -EKG: NSR, no evidence of acute ST-T wave changes -c/w duoneb as ordered by primary physician -start Mucinex DM for cough -start protonix 40 mg PO -Ibuprofen 400 mg PO once [employer] PROGRAM COORDINATOR leader Dr. Garcia Residents: Dr. Sol
--- NOTE | 2017-11-25 08:32 | CARD ---
APPROVED REPORT EKG Measurement Heart [id number] <Conclusion> Normal sinus rhythm Normal ECG
[2017-11-25 08:45] LABS: BASO % 0.1 % (0.0-2.0); HEMOGLOBIN 13.1 g/dL (12.0-16.0); LYMPH # 0.8 K/uL (1.0-4.3); MEAN CELL VOLUME 88.5 fl (81.0-99.0); MEAN CORPUSCULAR HEMOGLOBIN 28.5 pg (27.0-31.0); MEAN CORPUSCULAR HGB CONC 32.2 g/dL (33.0-37.0); MEAN PLATELET VOLUME 7.6 fl (7.2-11.7); MONO # 0.6 K/uL (0.0-0.8); MONO % 3.2 % (0.0-10.0); NEUT % 92.7 % (50.0-75.0); NRBC % 0.1 % (0.0-0.0); PLATELET COUNT 288 K/uL (130-400); RBC 4.58 Mil/uL (3.80-5.20); RED CELL DISTRIBUTION WIDTH 14.7 % (11.5-14.5); WHITE BLOOD COUNT 20.5 K/uL (4.8-10.8)
[2017-11-25] MEDS: Fluticasone-Salmeterol 250-50mcg Diskus IH SCH ×2 (09:17→22:54)
[2017-11-25] MEDS: Pantoprazole 40 mg EC Tab PO SCH (09:20)
[2017-11-25] MEDS: levoFLOXacin 500 mg in D5W 500 MG/100 ML BAG IVPB SCH (09:21)
[2017-11-25] MEDS: guaiFENesin-DM 600-30 mg ER Tab PO SCH ×2 (09:48→17:06)
--- NOTE | 2017-11-25 10:20 | CP.PCM.PN ---
Subjective - Date & Time of Evaluation Date of Evaluation: 11/25/17 Time of Evaluation: 10:20 - Subjective Subjective: C/O CHEST/ABDOMINAL PAINS TODAY SCOW CAPTAIN CALLED FEELS BETTER NOW Objective - Vital Signs/Intake and Output Vital Signs (last 24 hours): Temp Pulse Resp BP Pulse Ox 98.2 F 60 18 125/71 98 11/25/17 09:47 11/25/17 08:00 11/25/17 08:00 11/25/17 08:00 11/25/17 08:00 - Medications Medications: Current Medications Albuterol/Ipratropium (Duoneb 3 Mg/0.5 Mg (3 Ml) Ud) 3 ml INH RQ6 [facility] Last Admin: 11/25/17 07:54 Dose: Not Given Atorvastatin Calcium (Lipitor) 10 mg PO HS [facility] Last Admin: 11/24/17 21:04 Dose: 10 mg Famotidine (Pepcid) 20 mg PO BID [facility] Last Admin: 11/25/17 09:17 Dose: 20 mg Guaifenesin/Dextromethorphan (Mucinex-Dm 600-30 Mg) 1 tab PO BID [facility] Last Admin: 11/25/17 09:48 Dose: 1 tab Levofloxacin/Dextrose (Levaquin 500mg) 500 mg in 100 mls @ 100 mls/hr IVPB DAILY [facility] PRN Reason: Protocol Last Admin: 11/25/17 09:21 Dose: 100 mls/hr Methylprednisolone (Solu-Medrol) 80 mg IV Q8H [facility] Last Admin: 11/25/17 03:00 Dose: 80 mg Pantoprazole Sodium (Protonix Ec Tab) 40 mg PO DAILY [facility] Last Admin: 11/25/17 09:20 Dose: 40 mg Promethazine HCl (Phenergan Syrup) 12.5 mg PO Q6 [facility] Last Admin: 11/25/17 09:17 Dose: 12.5 mg Fluticasone/Salmeterol (Advair Diskus 250/50) 1 puff IH Q12 [facility] Last Admin: 11/25/17 09:17 Dose: 1 puff - Labs Labs: 11/25/17 05:55 11/24/17 05:50 - Constitutional Appears: No Acute Distress - Head Exam Head Exam: ATRAUMATIC, NORMAL INSPECTION, NORMOCEPHALIC - Eye Exam Eye Exam: EOMI, Normal appearance, PERRL Pupil Exam: NORMAL ACCOMODATION, PERRL - ENT Exam ENT Exam: Mucous Membranes Moist, Normal Exam - Neck Exam Neck Exam: Full ROM, Normal Inspection. absent: Lymphadenopathy - Respiratory Exam Respiratory Exam: Decreased Breath Sounds, Prolonged Expiratory Phase, NORMAL BREATHING PATTERN - Cardiovascular Exam Cardiovascular Exam: REGULAR RHYTHM, +S1, +S2. absent: Murmur - GI/Abdominal Exam GI & Abdominal Exam: Soft, Normal Bowel Sounds. absent: Tenderness - Rectal Exam Rectal Exam: NORMAL INSPECTION - Extremities Exam Extremities Exam: Full ROM, Normal Capillary Refill, Normal Inspection. absent : Joint Swelling, Pedal Edema - Back Exam Back Exam: NORMAL INSPECTION - Neurological Exam Neurological Exam: Alert, Awake, CN II-XII Intact, Normal Gait, Oriented x3 - Psychiatric Exam Psychiatric exam: Normal Affect, Normal Mood - Skin Skin Exam: Dry, Intact, Normal Color, Warm Assessment and Plan - Assessment and Plan (Free Text) Assessment: ACUTE EXAC OF COPD ?CHEST PAINS/ABD PAINS Plan: CONTINUE PRESENT RX CARDIOLOGY EVAL
[2017-11-25 11:20] LABS: LYMPHOCYTE 7 % (20-50); MONOCYTE 4 % (0-10); NEUTROPHIL 88 % (42-75); PLATELET ESTIMATE NORMAL (NORMAL); REACTIVE LYMPHOCYTES 1 % (0-0); TOTAL CELLS COUNTED 100
[2017-11-25 11:21] LABS: HYPOCHROMIC SLIGHT; TOXIC GRANULATION PRESENT
[2017-11-26] MEDS: Albuterol-Ipratrop 3 mg / 0.5 (3 ml) UD INH SCH ×3 (01:00→13:19)
[2017-11-26] MEDS: Promethazine 12.5 mg/10 ml Syrup PO SCH ×2 (04:23→09:31)
[2017-11-26 04:55] VITALS: RESP 18
--- NOTE | 2017-11-26 09:13 | CARD ---
APPROVED REPORT EXAM: Two-dimensional and M-mode echocardiogram with Doppler and color Doppler. Other Information Quality : PoorRhythm : INDICATION Chest Pain 2D DIMENSIONS IVSd1.09 (0.7-1.1cm)LVDd4.14 (3.9-5.9cm) PWd0.89 (0.7-1.1cm)LVDs2.63 (2.5-4.0cm) FS (%) 36.5 %PWs1.37 (0.8-1.2cm) M-Mode DIMENSIONS Left Atrium (MM)3.23 (2.5-4.0cm)IVSd1.40 (0.7-1.1cm) Aortic Root2.67 (2.2-3.7cm)LVDd4.93 (4.0-5.6cm) Aortic Cusp Exc.1.67 (1.5-2.0cm)PWd0.90 (0.7-1.1cm) IVSs2.30 cmFS (%) 45 % LVDs2.73 (2.0-3.8cm)PWs1.77 cm Mitral Valve MV E Jyqoalum71.6cm/sMV DECEL [id number] A Brxmgixs90.8cm/s MV LOE47cvM/A ratio0.9MVA (PHT)2.71cm2 TDI Lateral E' Peak V8.64cm/sMedial E' Peak V10.19cm/sE/Lateral E'9.4 E/Medial E'8.0 Pulmonary Valve PV Peak Gusemzzd453.1cm/s LEFT VENTRICLE The left ventricle is normal size. There is normal left ventricular wall thickness. Left ventricle systolic function is normal. The Ejection Fraction is 60-65%. There is normal LV segmental wall motion. Transmitral Doppler flow pattern is Grade I-abnormal relaxation pattern. RIGHT VENTRICLE The right ventricle is normal size. There is normal right ventricular wall thickness. The right ventricular systolic function is normal. ATRIA The left atrium size is normal. The right atrium size is normal. AORTIC VALVE The aortic valve is normal in structure. No aortic regurgitation is present. There is no aortic valvular stenosis. MITRAL VALVE The mitral valve is normal in structure. There is no evidence of mitral valve prolapse. There is no mitral valve stenosis. There is no mitral valve regurgitation noted. TRICUSPID VALVE The tricuspid valve is normal in structure. There is no tricuspid valve regurgitation noted. PULMONIC VALVE The pulmonary valve is normal in structure. There is no pulmonic valvular regurgitation. GREAT VESSELS The aortic root is normal in size. The IVC is normal in size and collapses >50% with inspiration. PERICARDIAL EFFUSION The pericardium appears normal. <Conclusion> The left ventricle is normal size. There is normal left ventricular wall thickness. There is normal LV segmental wall motion. Left ventricle systolic function is normal. The Ejection Fraction is 60-65%. Transmitral Doppler flow pattern is Grade I-abnormal relaxation pattern.
[2017-11-26] MEDS: Fluticasone-Salmeterol 250-50mcg Diskus IH SCH (09:29)
[2017-11-26] MEDS: levoFLOXacin 500 mg in D5W 500 MG/100 ML BAG IVPB SCH (09:30)
[2017-11-26] MEDS: guaiFENesin-DM 600-30 mg ER Tab PO SCH (09:31)
[2017-11-26] MEDS: Pantoprazole 40 mg EC Tab PO SCH (09:32)
--- NOTE | 2017-11-26 10:40 | CP.PCM.CON ---
History of Present Illness - History of Present Illness History of Present Illness: THE PATIENT IS A 67 YEAR OLD FEMALE WHO HAS A HISTORY OF COPD AND HYPERLIPIDEMIA. SHE WAS ADMITTED RECENTLY TO [facility] FOR COPD EXACERBATION AND REFUSED HOME OXYGEN AND DECLINED TO GO TO TCU. SHE WAS READMITTED THE FOLLOWING WEEK FOR COPD EXACERBATION AGAIN AND WAS TREATED WITH O2, ANTIBIOTICS , STEROIDS AND BRONCHODILATORS. SHE IS BREATHING BETTER NOW. CARDIOLOGY WAS CALLED TO SEE HER BECAUSE SHE COMPLAINED OF EPIGASTRIC/CHEST PAIN YESTERDAY AND HAD AN LAWN MOWER. I SPOKE TO HER TODAY AND SHE CLEARLY STATED THAT THE PAIN WAS EPIGASTRIC AND OF A SHARP CHARACTER AND NOT CHEST PAIN. SHE HAD NO FURTHER PAIN AFTER RECEIVING PROTONIX AND PEPCID. SHE DENIES ANY CARDIAC HISTORY SUCH ANGINA [place] OR [place]. Past Patient History - Infectious Disease Hx of Infectious Diseases: None - Tetanus Immunizations Tetanus Immunization: Unknown - Past Medical History & Family History Past Medical History?: Yes - Past Social History Smoking Status: Former Smoker - CARDIAC Hx Cardiac Disorders: Yes Hx Hypercholesterolemia: Yes - PULMONARY Hx Respiratory Disorders: Yes Hx Asthma: Yes Hx Bronchitis: Yes Hx Chronic Obstructive Pulmonary Disease (COPD): Yes - NEUROLOGICAL Hx Neurological Disorder: Yes Other/Comment: Hx neuropathy pain to both feet - HEENT Hx HEENT Problems: Yes Hx Cataracts: Yes (cataract sx ou) - RENAL Hx Chronic Kidney Disease: No - ENDOCRINE/METABOLIC Hx Endocrine Disorders: No - HEMATOLOGICAL/ONCOLOGICAL Hx Blood Disorders: No Hx Human Immunodeficiency Virus (HIV): No - INTEGUMENTARY Hx Dermatological Problems: No - MUSCULOSKELETAL/RHEUMATOLOGICAL Hx Musculoskeletal Disorders: No Hx Falls: No - GASTROINTESTINAL Hx Gastrointestinal Disorders: No - GENITOURINARY/GYNECOLOGICAL Hx Genitourinary Disorders: No - PSYCHIATRIC Hx Psychophysiologic Disorder: No Hx Substance Use: No - SURGICAL HISTORY Hx Surgeries: Yes Hx Eye Surgery: Yes (bilateral cataract) Hx Hysterectomy: Yes Hx Tubal Ligation: Yes - ANESTHESIA Hx Anesthesia: Yes Hx Anesthesia Reactions: No Hx Malignant Hyperthermia: No Meds Home Medications: Home Medication List Medication Instructions Recorded Confirmed Type predniSONE [predniSONE Tab] 10 mg PO DAILY #10 tab 11/26/17 Rx Allergies/Adverse Reactions: Allergies Allergy/AdvReac Type Severity Reaction Status Date / Time No Known Allergies Allergy Verified 11/24/17 00:25 - Medications Medications: Current Medications Albuterol/Ipratropium (Duoneb 3 Mg/0.5 Mg (3 Ml) Ud) 3 ml INH RQ6 [facility] Last Admin: 11/26/17 07:50 Dose: 3 ml Atorvastatin Calcium (Lipitor) 10 mg PO HS [facility] Last Admin: 11/25/17 22:54 Dose: 10 mg Famotidine (Pepcid) 20 mg PO BID [facility] Last Admin: 11/26/17 09:31 Dose: 20 mg Guaifenesin/Dextromethorphan (Mucinex-Dm 600-30 Mg) 1 tab PO BID [facility] Last Admin: 11/26/17 09:31 Dose: 1 tab Methylprednisolone (Solu-Medrol) 80 mg IV Q8H [facility] Last Admin: 11/26/17 09:53 Dose: 80 mg Pantoprazole Sodium (Protonix Ec Tab) 40 mg PO DAILY [facility] Last Admin: 11/26/17 09:32 Dose: 40 mg Promethazine HCl (Phenergan Syrup) 12.5 mg PO Q6 [facility] Last Admin: 11/26/17 09:31 Dose: 12.5 mg Fluticasone/Salmeterol (Advair Diskus 250/50) 1 puff IH Q12 [facility] Last Admin: 11/26/17 09:29 Dose: 1 puff Physical Exam - Respiratory Exam Respiratory Exam: Clear to Auscultation Bilateral - Cardiovascular Exam Cardiovascular Exam: REGULAR RHYTHM, +S1, +S2 - Extremities Exam Extremities exam: Positive for: normal inspection - Additional Findings Additional findings: EKG NSR, NO ACUTE CHANGES TROPONIN NORMAL ECHO WAS NORMAL Results - Vital Signs Recent Vital Signs: Last Vital Signs Temp 98.5 F 11/26/17 07:57 Pulse 74 11/26/17 07:57 Resp 18 11/26/17 07:57 BP 122/70 11/26/17 07:57 Pulse Ox 96 11/26/17 07:57 - Labs Result Diagrams: 11/25/17 05:55 11/24/17 05:50 Labs: Laboratory Results - last 24 hr 11/25/17 05:55 Neutrophils % (Manual) 88 H Lymphocytes % (Manual) 7 L Reactive Lymphs % 1 H Monocytes % (Manual) 4 Toxic Granulation Present Platelet Estimate Normal Hypochromasia (manual) Slight Assessment & Plan - Assessment and Plan (Free Text) Assessment: COPD EXACERBATION PAIN YESTERDAY WAS ESSENTIALLY EPIGASTRIC AND NOT CHEST PAIN HYPERLIPIDEMIA Plan: THE PATIENT ALREADY HAD EKGS AND AN ECHOCARDIOGRAM NO FURTHER CARDIAC WORK-UP NEEDED AT THE SAME TIME
--- NOTE | 2017-11-26 10:55 | CP.PCM.DIS ---
Provider - Provider Date of Admission: 11/23/17 08:13 Attending physician: Negro Chou MD Time Spent in preparation of Discharge (in minutes): 30 Diagnosis - Discharge Diagnosis (1) COPD exacerbation Status: Acute (2) Chest pain Status: Acute (3) Upper respiratory infection Status: Acute Hospital Course - Lab Results Lab Results: Most Recent Lab Values WBC 20.5 K/uL (4.8-10.8) H 11/25/17 05:55 RBC 4.58 Mil/uL (3.80-5.20) 11/25/17 05:55 Hgb 13.1 g/dL (12.0-16.0) 11/25/17 05:55 Hct 40.5 % (34.0-47.0) 11/25/17 05:55 MCV 88.5 fl (81.0-99.0) 11/25/17 05:55 MCH 28.5 pg (27.0-31.0) 11/25/17 05:55 MCHC 32.2 g/dL (33.0-37.0) L 11/25/17 05:55 RDW 14.7 % (11.5-14.5) H 11/25/17 05:55 Plt Count 288 K/uL (130-400) 11/25/17 05:55 MPV 7.6 fl (7.2-11.7) 11/25/17 05:55 Neut % (Auto) 92.7 % (50.0-75.0) H 11/25/17 05:55 Lymph % (Auto) 4.0 % (20.0-40.0) L 11/25/17 05:55 Crook % (Auto) 3.2 % (0.0-10.0) 11/25/17 05:55 Eos % (Auto) 0.0 % (0.0-4.0) 11/25/17 05:55 Baso % (Auto) 0.1 % (0.0-2.0) 11/25/17 05:55 Neut # (Auto) 19.0 K/uL (1.8-7.0) H 11/25/17 05:55 Lymph # (Auto) 0.8 K/uL (1.0-4.3) L 11/25/17 05:55 Crook # (Auto) 0.6 K/uL (0.0-0.8) 11/25/17 05:55 Eos # (Auto) 0.0 K/uL (0.0-0.7) 11/25/17 05:55 Baso # (Auto) 0.0 K/uL (0.0-0.2) 11/25/17 05:55 Neutrophils % (Manual) 88 % (42-75) H 11/25/17 05:55 Lymphocytes % (Manual) 7 % (20-50) L 11/25/17 05:55 Reactive Lymphs % 1 % (0-0) H 11/25/17 05:55 Monocytes % (Manual) 4 % (0-10) 11/25/17 05:55 Toxic Granulation Present 11/25/17 05:55 Platelet Estimate Normal (NORMAL) 11/25/17 05:55 Large Platelets Present 11/24/17 05:50 Hypochromasia (manual) Slight 11/25/17 05:55 pCO2 49 mm/Hg (35-45) H 11/23/17 10:21 pO2 51 mm/Hg (80-100) L 11/23/17 10:21 HCO3 29.2 mmol/L (21-28) H 11/23/17 10:21 ABG pH 7.42 (7.35-7.45) 11/23/17 10:21 ABG Total CO2 33.3 mmol/L (22-28) H 11/23/17 10:21 ABG O2 Saturation 90.6 % (95-98) L 11/23/17 10:21 ABG O2 Content 17.7 ML/dL (15-23) 11/23/17 10:21 ABG Base Excess 6.0 mmol/L (-2.0-3.0) H 11/23/17 10:21 ABG Hemoglobin 14.8 g/dL (11.7-17.4) 11/23/17 10:21 ABG Carboxyhemoglobin 3.2 % (0.5-1.5) H 11/23/17 10:21 POC ABG HHb (Measured) 8.8 % (0.0-5.0) H 11/23/17 10:21 ABG Methemoglobin 2.6 % (0.0-3.0) 11/23/17 10:21 ABG O2 Capacity 19.5 mL/dL (16-24) 11/23/17 10:21 Calvin Test Yes 11/23/17 10:21 VBG pH 7.39 (7.32-7.43) 11/23/17 07:06 VBG pCO2 58 mmHg (40-60) 11/23/17 07:06 VBG HCO3 30.4 mmol/L 11/23/17 07:06 VBG Total CO2 36.9 mmol/L (22-28) H 11/23/17 07:06 VBG O2 Sat (Calc) 67.4 % (40-65) H 11/23/17 07:06 VBG Base Excess 8.1 mmol/L (0.0-2.0) H 11/23/17 07:06 VBG Potassium 3.1 mmol/L (3.6-5.2) L 11/23/17 07:06 A-a O2 Difference 116.0 mm/Hg 11/23/17 10:21 Hgb O2 Saturation 85.3 % (95.0-98.0) L 11/23/17 10:21 Sodium 139.0 mmol/L (132-148) 11/23/17 07:06 Chloride 103.0 mmol/L (98-107) 11/23/17 07:06 Glucose 132 mg/dL (65-105) H 11/23/17 07:06 Lactate 0.9 mmol/L (0.7-2.1) 11/23/17 07:06 FiO2 32.0 % 11/23/17 10:21 Sodium 144 mmol/l (132-148) 11/24/17 05:50 Potassium 3.8 MMOL/L (3.6-5.0) 11/24/17 05:50 Chloride 101 mmol/L (98-107) 11/24/17 05:50 Carbon Dioxide 30 mmol/L (22-30) 11/24/17 05:50 Anion Gap 17 (10-20) 11/24/17 05:50 BUN 17 mg/dl (7-17) 11/24/17 05:50 Creatinine 0.4 mg/dl (0.7-1.2) L 11/24/17 05:50 Est GFR ( Amer) > 60 11/24/17 05:50 Est GFR (Non-Af Amer) > 60 11/24/17 05:50 Random Glucose 237 mg/dL (65-105) H 11/24/17 05:50 Calcium 8.8 mg/dL (8.4-10.2) 11/24/17 05:50 Troponin I 0.0180 ng/mL (0.00-0.120) 11/23/17 06:45 NT-Pro-B Natriuret Pep 59.3 pg/ml (0-900) 11/23/17 06:45 Venous Blood Potassium 3.1 mmol/L (3.6-5.2) L 11/23/17 07:06 - Hospital Course Hospital Course: SOB IMPROVED NO RECURRENCE OF CHEST OR ABDOMINAL PAINS Discharge Exam - Head Exam Head Exam: ATRAUMATIC, NORMAL INSPECTION, NORMOCEPHALIC - Eye Exam Eye Exam: EOMI, Normal appearance, PERRL Pupil Exam: NORMAL ACCOMODATION, PERRL - Respiratory Exam Respiratory Exam: Prolonged Expiratory Phase - GI/Abdominal Exam GI & Abdominal Exam: Normal Bowel Sounds - Rectal Exam Rectal Exam: NORMAL INSPECTION - Neurological Exam Neurological exam: Alert, CN II-XII Intact, Normal Gait, Oriented x3, Reflexes Normal - Psychiatric Exam Psychiatric exam: Normal Affect, Normal Mood - Skin Skin Exam: Dry, Intact, Normal Color, Warm Discharge Plan - Follow Up Plan Condition: FAIR Disposition: HOME/ ROUTINE Patient education suggested?: Yes Additional Instructions: DISCHARGE HOME TODAY FOLLOW UP WITH DR CHOU OBTAIN HOME O2
[2017-11-26 12:01] VITALS: PULSE 81; TEMP 98; O2SAT 93
[2017-11-26 12:44] VITALS: BP 124/71
== END 2017-11-26 13:40 | disposition home or self-care (01) | DRG 189 ==
LOC: H.ER 06:15 → H.ERHOLD 08:13 → H.TEL 21:07
PROVIDERS: ADMIT Internal Medicine Pulmonary Disease; ATTEND Internal Medicine Pulmonary Disease
DX: J96.01 Acute respiratory failure with hypoxia (principal); J44.1 Chronic obstructive pulmonary disease with (acute) exacerbation; J06.9 Acute upper respiratory infection, unspecified; Z87.891 Personal history of nicotine dependence; E78.00 Pure hypercholesterolemia, unspecified; E78.5 Hyperlipidemia, unspecified; G62.9 Polyneuropathy, unspecified

== ENCOUNTER 2018-03-19 13:35 | Emergency (ER) | payer MEDICARE, OTHER ==
[2018-03-19 13:59] VITALS: TEMP 97
[2018-03-19] MEDS ORDERED: Sodium Chloride 0.9% 1,000 ML IV STA (14:04)
--- NOTE | 2018-03-19 14:43 | ED PDOC ---
HPI: Abdomen Time Seen by Provider: 03/19/18 13:57 Chief Complaint (Nursing): Abdominal Pain Chief Complaint (Provider): Abdominal Pain History Per: Patient History/Exam Limitations: no limitations Onset/Duration Of Symptoms: Intermittent Episodes (x6 days) Current Symptoms Are (Timing): Still Present Additional Complaint(s): 67 year old female referred to ED by Dr. Solis for an evaluation of sharp, upper abdominal pain associated with decreased appetite ongoing for 6 days. Patient states pain was initially intermittent then became constant with exacerbation. She denies any fever, chills, nausea, vomiting, diarrhea, radiation of pain or recent use of blood thinners. Patient additionally reports taking carafate for presumed gastritis but denies any recent endoscopy or similar episodes in the past PMD: Dr. Negro Solis Past Medical History Reviewed: Historical Data, Nursing Documentation, Vital Signs Vital Signs: Last Vital Signs Temp 97 F L 03/19/18 13:57 Pulse 62 03/19/18 17:12 Resp 23 03/19/18 17:12 BP 120/73 03/19/18 17:12 Pulse Ox 88 L 03/23/18 10:52 - Medical History PMH: Asthma, Bronchitis, COPD, Hypercholesterolemia Denies: HIV, Chronic Kidney Disease - Surgical History Surgical History: Denies: No Surg Hx Other surgeries: hysterectoymy - Family History Family History: States: Unknown Family Hx - Social History Current smoker - smoking cessation education provided: No Ex-Smoker (has not smoked in the last 12 months): Yes (x9 weeks) Alcohol: None Drugs: Denies - Home Medications Home Medications: Ambulatory Orders Medication Instructions Recorded Tiotropium [Spiriva] 18 mcg IH DAILY #0 cap 07/09/16 Albuterol Sulfate [Ventolin Hfa] 2 puff IH Q6 PRN 03/21/18 Calcium Carbonate/Vitamin D 1 tab PO DAILY 03/21/18 [Oscal-D 250 mg-125 Units Tab] Fluticasone/Salmeterol [Advair 1 puff IH Q12 03/21/18 250-50 Diskus] Omeprazole [Omeprazole] 40 mg PO DAILY 03/21/18 Simvastatin [Zocor] 20 mg PO HS 03/21/18 Sucralfate [Carafate Tab] 1 tab PO QID 03/21/18 traMADol [Ultram] 50 mg PO Q8 PRN 03/21/18 - Allergies Allergies/Adverse Reactions: Allergies Allergy/AdvReac Type Severity Reaction Status Date / Time No Known Allergies Allergy Verified 03/21/18 11:23 Review of Systems ROS Statement: Except As Marked, All Systems Reviewed And Found Negative Constitutional: Negative for: Fever, Chills Gastrointestinal: Positive for: Abdominal Pain (upper), Other (decreased appetite). Negative for: Nausea, Vomiting, Diarrhea Physical Exam - Reviewed Nursing Documentation Reviewed: Yes Vital Signs Reviewed: Yes - Physical Exam Appears: Positive for: Non-toxic, No Acute Distress Head Exam: Positive for: ATRAUMATIC, NORMAL INSPECTION, NORMOCEPHALIC Skin: Positive for: Normal Color Eye Exam: Positive for: Normal appearance ENT: Positive for: Normal ENT Inspection Neck: Positive for: Normal Cardiovascular/Chest: Positive for: Regular Rate, Rhythm, Chest Non Tender Respiratory: Positive for: Normal Breath Sounds. Negative for: Respiratory Distress Gastrointestinal/Abdominal: Positive for: Soft, Tenderness (moderately epigastric [left > right]) - Laboratory Results Result Diagrams: 03/19/18 14:30 03/19/18 14:30 - ECG O2 Sat by Pulse Oximetry: 88 (RA) Pulse Ox Interpretation: Normal Medical Decision Making Medical Decision Making: Initial Impression: 67 y/o female with non-specific upper abdominal pain, on omeprazole. Initial Plan: --W/u with EKG, labs, US and CT to r/o pancreatitis, gastrointestinal perforation, biliary colic, gastric outlet obstruction. Pepcid and IV fluids additionally ordered. Time: 1415 --EKG: interpreted by provider. sinus arrithimia at [address] changes. Time: 1546 --US ABD FINDINGS: LIVER: Measures 16.1 cm. Normal echogenicity of the liver parenchyma. No mass. No intrahepatic bile duct dilatation. GALLBLADDER: Gallbladder appears mildly distended with a small echogenic focus without shadowing at the dependent wall near the neck. This may represent a small polyp or calculus. No color Doppler blood flow was identified here. The remainder the gallbladder appears unremarkable. COMMON BILE DUCT: Measures 3.0 mm. No stones. No dilatation. PANCREAS: The pancreatic duct is mildly dilated measuring 3.1 mm caliber without discrete mass throughout the visualized pancreas. RIGHT KIDNEY: Measures 10.1cm. No obstructive uropathy, radiodense urolithiasis or perinephric fluid collection is identified. No discrete cystic/solid mass. Renal cortical atrophy is identified moderately. LEFT KIDNEY: Measures 10.2cm. No obstructive uropathy, radiodense urolithiasis or perinephric fluid collection is identified. No discrete cystic/solid mass. Renal cortical atrophy is identified moderately. SPLEEN: Normal in size and contour. No mass. AORTA: No aneurysmal dilatation. IVC: Unremarkable. OTHER FINDINGS: None. IMPRESSION: 1. Interval, mild pancreatic duct dilatation without focal mass appreciable. No biliary tree dilatation. 2. Moderately distended gallbladder with a questionable tiny polyp or even calculus at the dependent neck adherent, a few mm size. No significant interval change greater prior ultrasound 01/15/2014. 3. Bilateral renal cortical atrophy identified. No hydronephrosis bilaterally. Accession No. : [id number] Patient Name / ID : TANISHA BUTCHER / [id number] Exam Date : 03/19/2018 18:36:46 ( Approved ) Study Comment : Sex / Age : F / 67Y Creator : Daryn Carias MD Dictator : Daryn Carias MD [facility] Nurse : Manager Company : Daryn Carias MD Approver2 : Report Date : 03/19/2018 18:59:39 My Comment : This report is currently processing and HAS NOT BEEN OFFICIALLY SIGNED BY THE PHYSICIAN - ESTIMATED TIME OF APPROVAL IS 03/19/2018 19:05. Date of service: 03/19/2018 PROCEDURE: CT Abdomen and Pelvis with contrast HISTORY: Unspecified abdominal pain. COMPARISON: March 19, 2018. Abdominal ultrasound TECHNIQUE: Contrast dose: 85 cc Omnipaque 300. Radiation dose: Total exam DLP = 340.06 mGy-cm. This CT exam was performed using one or more of the following dose reduction techniques: Automated exposure control, adjustment of the mA and/or kV according to patient size, and/or use of iterative reconstruction technique. FINDINGS: LOWER THORAX: Unremarkable. LIVER: Unremarkable. No gross lesion or ductal dilatation. GALLBLADDER AND BILE DUCTS: Unremarkable. PANCREAS: Unremarkable. No gross lesion or ductal dilatation. SPLEEN: Unremarkable. ADRENALS: Unremarkable. No mass. KIDNEYS AND URETERS: Unremarkable. No hydronephrosis. No solid mass. VASCULATURE: Unremarkable. No aortic aneurysm. BOWEL: Unremarkable. No obstruction. No gross mural thickening. APPENDIX: Normal appendix. PERITONEUM: Unremarkable. No free fluid. No free air. LYMPH NODES: Unremarkable. No enlarged lymph nodes. BLADDER: Unremarkable. REPRODUCTIVE: Prior hysterectomy BONES: No acute fracture. OTHER FINDINGS: None. IMPRESSION: No significant or acute findings to account for/ related to the clinical presentation. Additional benign and/or incidental findings described above. --------- d/w Dr Irma DC and refer to Dr Lopes GI Scribe Attestation: Documented by Roro Arrington, acting as a scribe for Suhail Thomson III, DO. Provider Scribe Attestation: All medical record entries made by the Scribe were at my direction and personally dictated by me. I have reviewed the chart and agree that the record accurately reflects my personal performance of the history, physical exam, medical decision making, and the department course for this patient. I have also personally directed, reviewed, and agree with the discharge instructions and disposition. Disposition - Clinical Impression Clinical Impression: Abdominal pain - Patient ED Disposition Is Patient to be Admitted: No Counseled Patient/Family Regarding: Studies Performed, Diagnosis, Need For Followup, Rx Given - Disposition Referrals: Asad Lopes MD [Staff Provider] - Negro Solis MD [Staff Provider] - Disposition: Routine/Home Disposition Time: 18:30 Condition: STABLE Additional Instructions: Followup with Dr Solis for further testing and definitive management of your symptoms. Return to ER for any worse or new symptoms. Continue omeprazole as directed. Continue medications as prior directed and add omeprazole 40mg once daily. Instructions: Acute Abdomen (Belly Pain) Forms: [facility] (Vietnamese)
[2018-03-19 14:48] LABS: BASO % 0.4 % (0.0-2.0); EOS # 0.2 K/uL (0.0-0.7); EOS % 3.1 % (0.0-4.0); HEMOGLOBIN 13.6 g/dL (12.0-16.0); LYMPH # 1.4 K/uL (1.0-4.3); LYMPH % 19.8 % (20.0-40.0); MEAN CELL VOLUME 87.1 fl (81.0-99.0); MEAN CORPUSCULAR HEMOGLOBIN 29.3 pg (27.0-31.0); MEAN CORPUSCULAR HGB CONC 33.7 g/dL (33.0-37.0); MEAN PLATELET VOLUME 7.1 fl (7.2-11.7); MONO # 0.7 K/uL (0.0-0.8); MONO % 10.3 % (0.0-10.0); NEUT # 4.7 K/uL (1.8-7.0); NEUT % 66.4 % (50.0-75.0); RBC 4.63 Mil/uL (3.80-5.20); RED CELL DISTRIBUTION WIDTH 13.2 % (11.5-14.5); WHITE BLOOD COUNT 7.1 K/uL (4.8-10.8)
[2018-03-19 14:56] LABS: ALB/GLOB RATIO 1.3 (1.0-2.1); CALCIUM 9.7 mg/dL (8.4-10.2); GFR AFRICAN-AMERICAN > 60; GFR NON-AFRICAN AMERICAN > 60; LIPASE 40 U/L (23-300)
[2018-03-19 14:58] LABS: ALT/SGPT 16 U/L (9-52); AST/SGOT 26 U/L (14-36); BLOOD UREA NITROGEN 11 mg/dl (7-17)
[2018-03-19 15:09] VITALS: PULSE 62
--- NOTE | 2018-03-19 15:50 | US ---
Date of service: 03/19/2018 HISTORY: upper abd pain COMPARISON: Abdomen ultrasound 01/15/2014. TECHNIQUE: Sonographic evaluation of the abdomen. FINDINGS: LIVER: Measures 16.1 cm. Normal echogenicity of the liver parenchyma. No mass. No intrahepatic bile duct dilatation. GALLBLADDER: Gallbladder appears mildly distended with a small echogenic focus without shadowing at the dependent wall near the neck. This may represent a small polyp or calculus. No color Doppler blood flow was identified here. The remainder the gallbladder appears unremarkable. COMMON BILE DUCT: Measures 3.0 mm. No stones. No dilatation. PANCREAS: The pancreatic duct is mildly dilated measuring 3.1 mm caliber without discrete mass throughout the visualized pancreas. RIGHT KIDNEY: Measures 10.1cm. No obstructive uropathy, radiodense urolithiasis or perinephric fluid collection is identified. No discrete cystic/solid mass. Renal cortical atrophy is identified moderately. LEFT KIDNEY: Measures 10.2cm. No obstructive uropathy, radiodense urolithiasis or perinephric fluid collection is identified. No discrete cystic/solid mass. Renal cortical atrophy is identified moderately. SPLEEN: Normal in size and contour. No mass. AORTA: No aneurysmal dilatation. IVC: Unremarkable. OTHER FINDINGS: None. IMPRESSION: 1. Interval, mild pancreatic duct dilatation without focal mass appreciable. No biliary tree dilatation. 2. Moderately distended gallbladder with a questionable tiny polyp or even calculus at the dependent neck adherent, a few mm size. No significant interval change greater prior ultrasound 01/15/2014. 3. Bilateral renal cortical atrophy identified. No hydronephrosis bilaterally.
[2018-03-19] MEDS ORDERED: Iohexol 240 (50 ml) PO ONE (16:01)
[2018-03-19] MEDS ORDERED: Iohexol 240 (50 ml) ONE (16:05)
[2018-03-19 17:12] VITALS: BP 120/73; RESP 23
--- NOTE | 2018-03-19 18:10 | CARD ---
APPROVED REPORT Date of service: 03/19/2018 <Conclusion> Normal sinus rhythm with sinus arrhythmia Normal ECG
[2018-03-19] MEDS ORDERED: Iohexol 300 100 ML IJ ONE (18:23)
[2018-03-19] MEDS ORDERED: Sodium Chloride 0.9% 50 ML IV ONE (18:23)
--- NOTE | 2018-03-19 19:01 | CT ---
Date of service: 03/19/2018 PROCEDURE: CT Abdomen and Pelvis with contrast HISTORY: Unspecified abdominal pain. COMPARISON: March 19, 2018. Abdominal ultrasound TECHNIQUE: Contrast dose: 85 cc Omnipaque 300. Radiation dose: Total exam DLP = 340.06 mGy-cm. This CT exam was performed using one or more of the following dose reduction techniques: Automated exposure control, adjustment of the mA and/or kV according to patient size, and/or use of iterative reconstruction technique. FINDINGS: LOWER THORAX: Unremarkable. LIVER: Unremarkable. No gross lesion or ductal dilatation. GALLBLADDER AND BILE DUCTS: Unremarkable. PANCREAS: Unremarkable. No gross lesion or ductal dilatation. SPLEEN: Unremarkable. ADRENALS: Unremarkable. No mass. KIDNEYS AND URETERS: Unremarkable. No hydronephrosis. No solid mass. VASCULATURE: Unremarkable. No aortic aneurysm. BOWEL: Unremarkable. No obstruction. No gross mural thickening. APPENDIX: Normal appendix. PERITONEUM: Unremarkable. No free fluid. No free air. LYMPH NODES: Unremarkable. No enlarged lymph nodes. BLADDER: Unremarkable. REPRODUCTIVE: Prior hysterectomy BONES: No acute fracture. OTHER FINDINGS: None. IMPRESSION: No significant or acute findings to account for/ related to the clinical presentation. Additional benign and/or incidental findings described above.
[2018-03-19 19:02] VITALS: O2SAT 88
== END 2018-03-19 19:27 | disposition home or self-care (01) ==
LOC: H.ER 13:35
DX: R10.10 Upper abdominal pain, unspecified (principal); K82.8 Other specified diseases of gallbladder; E78.00 Pure hypercholesterolemia, unspecified
CPT/HCPCS: 74177; 76700; 80053; 83690; 84484; 85025; 93005; 96374; 99285; J7030; Q9966; Q9967

== ENCOUNTER 2018-03-21 11:07 | Observation (INO) | payer MEDICARE, OTHER ==
--- NOTE | 2018-03-21 11:38 | ED PDOC ---
HPI: Abdomen Time Seen by Provider: 03/21/18 11:22 Chief Complaint (Nursing): Shortness Of Breath Chief Complaint (Provider): Epigastric abdominal pain History Per: Patient History/Exam Limitations: no limitations Onset/Duration Of Symptoms: Days Outside of [place] travel?: No Current Symptoms Are (Timing): Still Present Location Of Pain/Discomfort: Epigastric Quality Of Discomfort: Cramping, "Pain". denies: Burning Associated Symptoms: Nausea. denies: Fever, Chills, Vomiting, Back Pain, Chest Pain, Urinary Symptoms Additional History Per: Patient Additional Complaint(s): 67yo female, history of COPD, comes to ER with complaints of epigastric abdominal pain x 1 week. She states the pain has been worsening and was evaluated by Dr. Solis, given sucralfate which she is taking 4 x daily with no relief. She also reprots associated nausea, and exacerbation of her chronic shortness of breath due to pain. Otherwise, she denies any fever, chills, vomiting, chest pain, radiation of pain to back, neck or shoulder. She has no additional medical complaints. Past Medical History Reviewed: Historical Data, Nursing Documentation, Vital Signs Vital Signs: Last Vital Signs Temp 100.5 F H 03/21/18 11:54 Pulse 76 03/21/18 11:24 Resp 22 03/21/18 12:29 BP Pulse Ox 74 L 03/21/18 11:41 - Medical History PMH: Asthma, Bronchitis, COPD, Hypercholesterolemia Denies: HIV, Chronic Kidney Disease - Surgical History Other surgeries: hysterectomy - Family History Family History: States: No Known Family Hx, Unknown Family Hx - Social History Current smoker - smoking cessation education provided: No Ex-Smoker (has not smoked in the last 12 months): Yes (smoked for 40 years) - Home Medications Home Medications: Ambulatory Orders Medication Instructions Recorded Tiotropium [Spiriva] 18 mcg IH DAILY #0 cap 07/09/16 - Allergies Allergies/Adverse Reactions: Allergies Allergy/AdvReac Type Severity Reaction Status Date / Time No Known Allergies Allergy Verified 03/21/18 11:23 Review of Systems ROS Statement: Except As Marked, All Systems Reviewed And Found Negative Constitutional: Negative for: Fever, Chills Cardiovascular: Negative for: Chest Pain Respiratory: Positive for: Shortness of Breath (chronic) Gastrointestinal: Positive for: Nausea, Abdominal Pain. Negative for: Vomiting Genitourinary Female: Negative for: Dysuria, Frequency, Hematuria Musculoskeletal: Negative for: Neck Pain, Shoulder Pain, Back Pain Physical Exam - Reviewed Nursing Documentation Reviewed: Yes Vital Signs Reviewed: Yes - Physical Exam Appears: Positive for: Non-toxic, Uncomfortable Head Exam: Positive for: ATRAUMATIC, NORMAL INSPECTION, NORMOCEPHALIC Skin: Positive for: Normal Color Eye Exam: Positive for: Normal appearance Neck: Positive for: Normal, Supple Cardiovascular/Chest: Positive for: Regular Rate, Rhythm, Chest Non Tender. Negative for: Murmur Respiratory: Positive for: Normal Breath Sounds. Negative for: Rales, Rhonchi, Wheezing Gastrointestinal/Abdominal: Positive for: Soft, Tenderness (epigastric). Negative for: Mass, Guarding, Rebound Back: Positive for: Normal Inspection Extremity: Positive for: Normal ROM. Negative for: Pedal Edema Neurologic/Psych: Positive for: Alert, Oriented. Negative for: Motor/Sensory Deficits - Laboratory Results Result Diagrams: 03/21/18 11:30 03/21/18 11:30 - ECG O2 Sat by Pulse Oximetry: 74 Pulse Ox Interpretation: Abnormal Medical Decision Making Medical Decision Making: Impression: Abdominal pain Plan: -- Labs -- EKG -- Pepcid 20mg IVP -- O2 via NC Scribe Attestation: Documented by Lupe Rodrigues, acting as a scribe for Merly Madrid MD. Provider Scribe Attestation: All medical record entries made by the Scribe were at my direction and personally dictated by me. I have reviewed the chart and agree that the record accurately reflects my personal performance of the history, physical exam, medical decision making, and the department course for this patient. I have also personally directed, reviewed, and agree with the discharge instructions and disposition. case d/w Dr. Solis. Patient admitted due to the repeat visits to the ER for abdominal pain. Will have GI see her. Disposition - Clinical Impression Clinical Impression: Intractable abdominal pain - Patient ED Disposition Is Patient to be Admitted: Yes Doctor Will See Patient In The: Hospital - Disposition Disposition: Transfer of Care Disposition Time: 14:24 Condition: FAIR Forms: [employer] ([place]) - POA Present On Arrival: None
[2018-03-21 12:00] LABS: BASO % 0.2 % (0.0-2.0); EOS # 0.2 K/uL (0.0-0.7); EOS % 2.3 % (0.0-4.0); HEMOGLOBIN 13.9 g/dL (12.0-16.0); LYMPH # 1.2 K/uL (1.0-4.3); LYMPH % 12.9 % (20.0-40.0); MEAN CELL VOLUME 87.7 fl (81.0-99.0); MEAN CORPUSCULAR HEMOGLOBIN 29.5 pg (27.0-31.0); MEAN CORPUSCULAR HGB CONC 33.7 g/dL (33.0-37.0); MEAN PLATELET VOLUME 7.1 fl (7.2-11.7); MONO # 0.7 K/uL (0.0-0.8); MONO % 7.7 % (0.0-10.0); NEUT % 76.9 % (50.0-75.0); NRBC % 0.1 % (0.0-0.0); RBC 4.69 Mil/uL (3.80-5.20); RED CELL DISTRIBUTION WIDTH 13.3 % (11.5-14.5); WHITE BLOOD COUNT 9.1 K/uL (4.8-10.8)
[2018-03-21 12:09] LABS: BLOOD UREA NITROGEN 8 mg/dl (7-17); GFR AFRICAN-AMERICAN > 60; GFR NON-AFRICAN AMERICAN > 60
--- NOTE | 2018-03-21 16:29 | CARD ---
APPROVED REPORT Date of service: 03/21/2018 EKG Measurement Heart [id number] <Conclusion> Normal sinus rhythm Normal ECG
--- NOTE | 2018-03-21 16:41 | RAD ---
Date of service: 03/21/2018 HISTORY: epigastric pain COMPARISON: 11/23/2017 TECHNIQUE: Chest PA and lateral FINDINGS: LUNGS: Bilateral hyperaeration and upper lobe lucencies compatible with emphysematous changes. A vague sub cm nodular opacity projects over the lateral left upper lung zone and also over the left 2nd rib its clinical significance, if any, this unknown. Is not appreciated on the prior study. Consider CT chest without contrast enhancement to further evaluate. Left infrahilar and probably lesser right infrahilar peribronchial thickening bronchiectasis here is compatible with this. Ionic peribronchial inflammatory changes compatible with this. No more dense consolidation seen. Right infrahilar peribronchial thickening at both lung bases is an interval change. PLEURA: No significant pleural effusion identified. No pneumothorax apparent. CARDIOVASCULAR: Normal. OSSEOUS STRUCTURES: No significant abnormalities. VISUALIZED UPPER ABDOMEN: Normal. OTHER FINDINGS: None. IMPRESSION: Indeterminate nodular opacity left upper lung zone-as discussed above. Consider CT chest imaging to clarify. Interval bilateral infrahilar peribronchial thickening/ bronchiectasis. Background COPD emphysema
[2018-03-21] MEDS: Potassium Ch 20mEq in D5-1/2NS 1,000 ML IV SCH (18:30)
[2018-03-21] MEDS: Fluticasone-Salmeterol 250-50mcg Diskus IH SCH (22:08)
[2018-03-21] MEDS: Albuterol-Ipratrop 3 mg / 0.5 (3 ml) UD INH SCH (22:40)
[2018-03-22] MEDS: Albuterol-Ipratrop 3 mg / 0.5 (3 ml) UD INH SCH ×4 (03:44→19:04)
[2018-03-22 06:59] LABS: BLOOD UREA NITROGEN 6 mg/dl (7-17); CALCIUM 8.4 mg/dL (8.4-10.2); GFR AFRICAN-AMERICAN > 60; GFR NON-AFRICAN AMERICAN > 60
[2018-03-22] MEDS: Potassium Ch 20mEq in D5-1/2NS 1,000 ML IV SCH (07:01)
--- NOTE | 2018-03-22 08:22 | CP.PCM.HP ---
History of Present Illness - History of Present Illness History of Present Illness: 67 yr old female admitted with intractable abdominal pain x 1 week.she was treated as an out patient,but symptoms worsened despite 2 er visits.She is nauseaous but denies vomiting or diarrhea. History of copd. Present on Admission - Present on Admission Any Indicators Present on Admission: No Past Patient History - Infectious Disease Hx of Infectious Diseases: None - Tetanus Immunizations Tetanus Immunization: Unknown - Past Medical History & Family History Past Medical History?: Yes - Past Social History Smoking Status: Former Smoker - CARDIAC Hx Cardiac Disorders: Yes Hx Hypercholesterolemia: Yes - PULMONARY Hx Asthma: Yes Hx Bronchitis: Yes Hx Chronic Obstructive Pulmonary Disease (COPD): Yes - NEUROLOGICAL Hx Neurological Disorder: No - HEENT Hx HEENT Problems: Yes Hx Cataracts: Yes (cataract sx both eyes) - RENAL Hx Chronic Kidney Disease: No - ENDOCRINE/METABOLIC Hx Endocrine Disorders: No - HEMATOLOGICAL/ONCOLOGICAL Hx Blood Disorders: No - INTEGUMENTARY Hx Dermatological Problems: No - MUSCULOSKELETAL/RHEUMATOLOGICAL Hx Musculoskeletal Disorders: No Hx Falls: No - GASTROINTESTINAL Hx Gastrointestinal Disorders: No - GENITOURINARY/GYNECOLOGICAL Hx Genitourinary Disorders: No - PSYCHIATRIC Hx Psychophysiologic Disorder: No Hx Substance Use: No - SURGICAL HISTORY Hx Surgeries: Yes Hx Eye Surgery: Yes (bilateral cataract) Hx Hysterectomy: Yes Hx Tubal Ligation: Yes - ANESTHESIA Hx Anesthesia: Yes Hx Anesthesia Reactions: No Meds Allergies/Adverse Reactions: Allergies Allergy/AdvReac Type Severity Reaction Status Date / Time No Known Allergies Allergy Verified 03/21/18 11:23 Physical Exam - Constitutional Appears: In Acute Distress - Head Exam Head Exam: ATRAUMATIC, NORMAL INSPECTION, NORMOCEPHALIC - Eye Exam Eye Exam: EOMI, Normal appearance, PERRL Pupil Exam: NORMAL ACCOMODATION, PERRL - ENT Exam ENT Exam: Mucous Membranes Moist, Normal Exam - Neck Exam Neck exam: Positive for: Normal Inspection - Respiratory Exam Respiratory Exam: Prolonged Expiratory Phase, Wheezes, NORMAL BREATHING PATTERN - Cardiovascular Exam Cardiovascular Exam: REGULAR RHYTHM - GI/Abdominal Exam GI & Abdominal Exam: Normal Bowel Sounds, Soft, Tenderness - Rectal Exam Rectal Exam: NORMAL INSPECTION - Extremities Exam Extremities exam: Positive for: normal inspection - Back Exam Back exam: NORMAL INSPECTION - Neurological Exam Neurological exam: Alert, CN II-XII Intact, Normal Gait, Oriented x3, Reflexes Normal - Psychiatric Exam Psychiatric exam: Normal Affect, Normal Mood - Skin Skin Exam: Dry, Intact, Normal Color, Warm Results - Vital Signs Recent Vital Signs: Last Vital Signs Temp 98.1 F 03/22/18 01:00 Pulse 69 03/22/18 01:00 Resp 20 03/22/18 01:00 BP 96/57 L 03/22/18 01:00 Pulse Ox 95 03/22/18 01:00 - Labs Result Diagrams: 03/21/18 11:30 03/22/18 05:20 Labs: Laboratory Results - last 24 hr 03/21/18 03/21/18 03/22/18 11:30 11:30 05:20 WBC 9.1 RBC 4.69 Hgb 13.9 Hct 41.2 MCV 87.7 MCH 29.5 MCHC 33.7 RDW 13.3 Plt Count 269 MPV 7.1 L Neut % (Auto) 76.9 H Lymph % (Auto) 12.9 L [place] % (Auto) 7.7 Eos % (Auto) 2.3 Baso % (Auto) 0.2 Neut # (Auto) 7.0 Lymph # (Auto) 1.2 [place] # (Auto) 0.7 Eos # (Auto) 0.2 Baso # (Auto) 0.0 Sodium 139 141 Potassium 3.4 L 3.3 L Chloride 100 99 Carbon Dioxide 30 32 H Anion Gap 12 13 BUN 8 6 L Creatinine 0.4 L 0.4 L Est GFR ( Amer) > 60 > 60 Est GFR (Non-Af Amer) > 60 > 60 Random Glucose 130 H 111 H Calcium 9.0 8.4 Troponin I 0.0150 Assessment & Plan - Assessment and Plan (Free Text) Assessment: intractable abdominal pain--r/o peptic ulcer dz/gastritis copd hypokalemia Plan: iv protonix analgesics iv hydration gastroenterology eval k+ supplements advance diet
[2018-03-22 09:06] VITALS: RESP 18
[2018-03-22] MEDS: Fluticasone-Salmeterol 250-50mcg Diskus IH SCH ×2 (09:19→21:31)
[2018-03-22] MEDS: Calcium-Vit D 250 mg-125 Units Tab UD PO SCH (09:19)
[2018-03-22] MEDS ORDERED: Potassium Chloride 20 mEq ER Tab PO ONE (09:45)
--- NOTE | 2018-03-22 10:23 | CT ---
Date of service: 03/22/2018 PROCEDURE: CT Chest without contrast HISTORY: copd with pulmonary nodules COMPARISON: None available. TECHNIQUE: Contiguous axial images were obtained through the chest without intravenous contrast enhancement. Sagittal and coronal reconstructions were performed. Radiation dose (DLP): 187 mGy-cm. This CT exam was performed using one or more of the following dose reduction techniques: Automated exposure control, adjustment of the mA and/or kV according to patient size, and/or use of iterative reconstruction technique. FINDINGS: LUNGS: COPD. Emphysematous changes in the upper lobes. No evidence of pulmonary nodule MEDIASTINUM: Unremarkable thoracic aorta. No aneurysm. Normal sized heart. Main pulmonary artery unremarkable. No vascular congestion. No lymphadenopathy. PLEURA: No pleural fluid. No pneumothorax. BONES: No fracture. No destructive lesion. UPPER ABDOMEN: Grossly unremarkable. OTHER FINDINGS: None. IMPRESSION: COPD. Emphysematous changes in the upper lobes. No evidence of pulmonary nodule
--- NOTE | 2018-03-22 15:52 | CP.PCM.CON ---
History of Present Illness - History of Present Illness History of Present Illness: GI Fellow PGY4, Consult note. Sara Cartagena is a very pleasant 67yo F with history of COPD presenting with recurrent abdominal pain. Patient states she has been having this pain for ~ 2weeks and it has been constant, sharp, 8/10 at max and located at LUQ of abdomen. She has been assessed by PMD and placed on sucralfate and PPI appropriately without significant relief. Opiate medications have been helping. Position, food, timing dose not change symptoms. She denies anemia, NSAID or alcohol use. She denies history of pancreatitis, cardiac disease, gallstones, PUD, previous EGD or colonsocopy. She does admits pass hard stool recently. PMHx - see above. PSHx - Denies FMHx - Denies hx of GI related cancers SocHx - Strong smoking history, quit 8 years ago. Previous alcohol, unable to quantify. 12pt ROS completed and negative except for above. Past Patient History - Infectious Disease Hx of Infectious Diseases: None - Tetanus Immunizations Tetanus Immunization: Unknown - Past Medical History & Family History Past Medical History?: Yes - Past Social History Smoking Status: Former Smoker - CARDIAC Hx Cardiac Disorders: Yes Hx Hypercholesterolemia: Yes - PULMONARY Hx Asthma: Yes Hx Bronchitis: Yes Hx Chronic Obstructive Pulmonary Disease (COPD): Yes - NEUROLOGICAL Hx Neurological Disorder: No - HEENT Hx HEENT Problems: Yes Hx Cataracts: Yes (cataract sx both eyes) - RENAL Hx Chronic Kidney Disease: No - ENDOCRINE/METABOLIC Hx Endocrine Disorders: No - HEMATOLOGICAL/ONCOLOGICAL Hx Blood Disorders: No - INTEGUMENTARY Hx Dermatological Problems: No - MUSCULOSKELETAL/RHEUMATOLOGICAL Hx Musculoskeletal Disorders: No Hx Falls: No - GASTROINTESTINAL Hx Gastrointestinal Disorders: No - GENITOURINARY/GYNECOLOGICAL Hx Genitourinary Disorders: No - PSYCHIATRIC Hx Psychophysiologic Disorder: No Hx Substance Use: No - SURGICAL HISTORY Hx Surgeries: Yes Hx Eye Surgery: Yes (bilateral cataract) Hx Hysterectomy: Yes Hx Tubal Ligation: Yes - ANESTHESIA Hx Anesthesia: Yes Hx Anesthesia Reactions: No Meds Allergies/Adverse Reactions: Allergies Allergy/AdvReac Type Severity Reaction Status Date / Time No Known Allergies Allergy Verified 03/21/18 11:23 - Medications Medications: Current Medications Albuterol/Ipratropium (Duoneb 3 Mg/0.5 Mg (3 Ml) Ud) 3 ml INH RQ6 [facility] Last Admin: 03/22/18 13:49 Dose: 3 ml Atorvastatin Calcium (Lipitor) 10 mg PO HS [facility] Last Admin: 03/21/18 22:15 Dose: 10 mg Calcium/Vitamin D (Oscal-D 250 Mg-125 Units Tab) 1 tab PO DAILY [facility] Last Admin: 03/22/18 09:19 Dose: 1 tab Hydromorphone HCl (Dilaudid) 0.5 mg IVP Q6 PRN PRN Reason: Pain, severe (8-10) Last Admin: 03/22/18 13:26 Dose: 0.5 mg Potassium Chloride/Dextrose/Sod Cl (Potassium Chl 20 Meq In D5-1/2ns) 1,000 mls @ 80 mls/hr IV .[id number] [facility] Stop: 03/22/18 16:44 Last Admin: 03/22/18 07:01 Dose: 80 mls/hr Pantoprazole Sodium (Protonix Inj) 40 mg IVP Q12 [facility] Last Admin: 03/22/18 09:20 Dose: 40 mg Fluticasone/Salmeterol (Advair Diskus 250/50) 1 puff IH Q12 [facility] Last Admin: 03/22/18 09:19 Dose: 1 puff Physical Exam - Constitutional Appears: Well - Head Exam Head Exam: ATRAUMATIC, NORMAL INSPECTION, NORMOCEPHALIC - Eye Exam Eye Exam: EOMI, Normal appearance, PERRL - ENT Exam ENT Exam: Mucous Membranes Moist, Normal Exam - Respiratory Exam Respiratory Exam: Clear to Auscultation Bilateral, NORMAL BREATHING PATTERN - Cardiovascular Exam Cardiovascular Exam: REGULAR RHYTHM - GI/Abdominal Exam GI & Abdominal Exam: Normal Bowel Sounds, Soft, Tenderness. absent: Organomegaly Additional comments: LUQ tenderness to deep palpation. - Neurological Exam Neurological exam: Alert, CN II-XII Intact, Normal Gait, Oriented x3, Reflexes Normal - Psychiatric Exam Psychiatric exam: Normal Affect, Normal Mood Results - Vital Signs Recent Vital Signs: Last Vital Signs Temp 98.0 F 03/22/18 09:06 Pulse 69 03/22/18 09:06 Resp 18 03/22/18 09:06 BP 100/59 L 03/22/18 09:06 Pulse Ox 93 L 03/22/18 09:06 - Labs Result Diagrams: 03/21/18 11:30 03/22/18 05:20 Labs: Laboratory Results - last 24 hr 03/22/18 05:20 Sodium 141 Potassium 3.3 L Chloride 99 Carbon Dioxide 32 H Anion Gap 13 BUN 6 L Creatinine 0.4 L Est GFR ( Amer) > 60 Est GFR (Non-Af Amer) > 60 Random Glucose 111 H Calcium 8.4 Assessment & Plan - Assessment and Plan (Free Text) Assessment: 67F with hx of COPD presenting with recurrent abdominal pain refractory to PPI, no structural abnormalities on imaging or major lab abnormalities, likely due to functional process. #Recurrent abdominal pain #Possible Constipation #COPD Plan: -Colon with moderate amount of stool present -Will treat for constipation first -Avoid opiates -Start miralax, bentyl -May benefit from enema -CRP to r/o non-functional problem -EGD if abdominal symptoms continue after constipation relieved - Date & Time Date: 03/22/18 Time: 15:54
[2018-03-22] MEDS: POLYETHYLENE GLYCOL 3350 17 GM/Dose PACKET PO SCH (17:16)
[2018-03-23] MEDS: Albuterol-Ipratrop 3 mg / 0.5 (3 ml) UD INH SCH ×3 (01:05→13:24)
[2018-03-23 08:06] LABS: BLOOD UREA NITROGEN 2 mg/dl (7-17); CALCIUM 8.6 mg/dL (8.4-10.2); GFR AFRICAN-AMERICAN > 60; GFR NON-AFRICAN AMERICAN > 60
--- NOTE | 2018-03-23 08:08 | CP.PCM.PN ---
Subjective - Date & Time of Evaluation Date of Evaluation: 03/23/18 Time of Evaluation: 08:07 - Subjective Subjective: GI Fellow PGY4, progress note. No acute overnight events. Continuing to ask for Dilaudid for abdominal pain. Pain was in epigastric area. Currently no complaints and pain is controlled. Objective - Vital Signs/Intake and Output Vital Signs (last 24 hours): Temp Pulse Resp BP Pulse Ox 98.4 F 76 18 112/68 100 03/23/18 00:29 03/23/18 00:29 03/23/18 00:29 03/23/18 00:29 03/23/18 00:29 - Medications Medications: Current Medications Albuterol/Ipratropium (Duoneb 3 Mg/0.5 Mg (3 Ml) Ud) 3 ml INH RQ6 [facility] Last Admin: 03/23/18 07:37 Dose: 3 ml Atorvastatin Calcium (Lipitor) 10 mg PO HS [facility] Last Admin: 03/22/18 21:31 Dose: 10 mg Calcium/Vitamin D (Oscal-D 250 Mg-125 Units Tab) 1 tab PO DAILY [facility] Last Admin: 03/22/18 09:19 Dose: 1 tab Dicyclomine HCl (Bentyl) 20 mg PO QID [facility] Last Admin: 03/22/18 21:31 Dose: 20 mg Hydromorphone HCl (Dilaudid) 0.5 mg IVP Q6 PRN PRN Reason: Pain, severe (8-10) Last Admin: 03/23/18 07:03 Dose: 0.5 mg Pantoprazole Sodium (Protonix Inj) 40 mg IVP Q12 [facility] Last Admin: 03/22/18 21:31 Dose: 40 mg Polyethylene Glycol (Miralax) 17 gm PO BID [facility] Last Admin: 03/22/18 17:16 Dose: 17 gm Fluticasone/Salmeterol (Advair Diskus 250/50) 1 puff IH Q12 [facility] Last Admin: 03/22/18 21:31 Dose: 1 puff - Labs Labs: 03/21/18 11:30 03/23/18 06:30 - Constitutional Appears: Well - Respiratory Exam Respiratory Exam: Clear to Ausculation Bilateral, NORMAL BREATHING PATTERN. absent: Wheezes - Cardiovascular Exam Cardiovascular Exam: REGULAR RHYTHM, +S1, +S2 - GI/Abdominal Exam GI & Abdominal Exam: Soft, Tenderness, Normal Bowel Sounds Additional comments: Epigastric tenderness - Extremities Exam Extremities Exam: Normal Inspection - Back Exam Back Exam: NORMAL INSPECTION - Neurological Exam Neurological Exam: Alert, CN II-XII Intact, Normal Gait, Oriented x3 - Psychiatric Exam Psychiatric exam: Normal Affect, Normal Mood - Skin Skin Exam: Normal Color Assessment and Plan - Assessment and Plan (Free Text) Assessment: 67F with hx of COPD presenting with recurrent abdominal pain refractory to PPI, no structural abnormalities on imaging or major lab abnormalities, likely due to functional process. #Recurrent abdominal pain #Possible Constipation #COPD Plan: -Colon with moderate amount of stool present -Will treat for constipation first -Avoid opiates -Start miralax, bentyl -May benefit from enema -CRP to r/o non-functional problem -Okay to d/c home from GI perspective. EGD can be planned as an outpt.
[2018-03-23 08:20] VITALS: BP 113/66; PULSE 71; TEMP 98.1; O2SAT 93
[2018-03-23 08:45] LABS: ALB/GLOB RATIO 1.4 (1.0-2.1); ALBUMIN 3.4 g/dL (3.5-5.0); BILIRUBIN,DIRECT 0.2 mg/ml (0.0-0.4)
[2018-03-23] MEDS ORDERED: Magnesium Hydroxide Susp 30 ml UD PO STA (09:05)
[2018-03-23] MEDS: Fluticasone-Salmeterol 250-50mcg Diskus IH SCH (09:13)
[2018-03-23] MEDS: Calcium-Vit D 250 mg-125 Units Tab UD PO SCH (09:13)
[2018-03-23] MEDS: POLYETHYLENE GLYCOL 3350 17 GM/Dose PACKET PO SCH (09:13)
--- NOTE | 2018-03-23 12:10 | CP.PCM.DIS ---
Provider - Provider Date of Admission: 03/21/18 14:25 Attending physician: Negro Solis MD Time Spent in preparation of Discharge (in minutes): 35 Diagnosis - Discharge Diagnosis (1) Intractable abdominal pain Status: Acute (2) Asthma with COPD with exacerbation Status: Acute (3) DVT prophylaxis Status: Acute Hospital Course - Lab Results Lab Results: Most Recent Lab Values WBC 9.1 K/uL (4.8-10.8) 03/21/18 11:30 RBC 4.69 Mil/uL (3.80-5.20) 03/21/18 11:30 Hgb 13.9 g/dL (12.0-16.0) 03/21/18 11:30 Hct 41.2 % (34.0-47.0) 03/21/18 11:30 MCV 87.7 fl (81.0-99.0) 03/21/18 11:30 MCH 29.5 pg (27.0-31.0) 03/21/18 11:30 MCHC 33.7 g/dL (33.0-37.0) 03/21/18 11:30 RDW 13.3 % (11.5-14.5) 03/21/18 11:30 Plt Count 269 K/uL (130-400) 03/21/18 11:30 MPV 7.1 fl (7.2-11.7) L 03/21/18 11:30 Neut % (Auto) 76.9 % (50.0-75.0) H 03/21/18 11:30 Lymph % (Auto) 12.9 % (20.0-40.0) L 03/21/18 11:30 Milam % (Auto) 7.7 % (0.0-10.0) 03/21/18 11:30 Eos % (Auto) 2.3 % (0.0-4.0) 03/21/18 11:30 Baso % (Auto) 0.2 % (0.0-2.0) 03/21/18 11:30 Neut # (Auto) 7.0 K/uL (1.8-7.0) 03/21/18 11:30 Lymph # (Auto) 1.2 K/uL (1.0-4.3) 03/21/18 11:30 Milam # (Auto) 0.7 K/uL (0.0-0.8) 03/21/18 11:30 Eos # (Auto) 0.2 K/uL (0.0-0.7) 03/21/18 11:30 Baso # (Auto) 0.0 K/uL (0.0-0.2) 03/21/18 11:30 Sodium 141 mmol/l (132-148) 03/23/18 06:30 Potassium 3.7 MMOL/L (3.6-5.0) 03/23/18 06:30 Chloride 104 mmol/L (98-107) 03/23/18 06:30 Carbon Dioxide 30 mmol/L (22-30) 03/23/18 06:30 Anion Gap 11 (10-20) 03/23/18 06:30 BUN 2 mg/dl (7-17) L 03/23/18 06:30 Creatinine 0.4 mg/dl (0.7-1.2) L 03/23/18 06:30 Est GFR ( Amer) > 60 03/23/18 06:30 Est GFR (Non-Af Amer) > 60 03/23/18 06:30 Random Glucose 113 mg/dL (65-105) H 03/23/18 06:30 Calcium 8.6 mg/dL (8.4-10.2) 03/23/18 06:30 Total Bilirubin 0.4 mg/dl (0.2-1.3) 03/23/18 08:21 Direct Bilirubin 0.2 mg/ml (0.0-0.4) 03/23/18 08:21 AST 18 U/L (14-36) 03/23/18 08:21 ALT 24 U/L (9-52) 03/23/18 08:21 Alkaline Phosphatase 54 U/L (38-126) 03/23/18 08:21 Troponin I 0.0150 ng/mL (0.00-0.120) 03/21/18 11:30 Total Protein 5.8 G/DL (6.3-8.2) L 03/23/18 08:21 Albumin 3.4 g/dL (3.5-5.0) L 03/23/18 08:21 Globulin 2.5 gm/dL (2.2-3.9) 03/23/18 08:21 Albumin/Globulin Ratio 1.4 (1.0-2.1) 03/23/18 08:21 - Hospital Course Hospital Course: abdominal pain resolved Discharge Exam - Head Exam Head Exam: ATRAUMATIC, NORMAL INSPECTION, NORMOCEPHALIC - Eye Exam Eye Exam: EOMI, Normal appearance, PERRL Pupil Exam: NORMAL ACCOMODATION, PERRL - GI/Abdominal Exam GI & Abdominal Exam: Normal Bowel Sounds - Rectal Exam Rectal Exam: NORMAL INSPECTION - Neurological Exam Neurological exam: Alert, CN II-XII Intact, Normal Gait, Oriented x3, Reflexes Normal - Psychiatric Exam Psychiatric exam: Normal Affect, Normal Mood - Skin Skin Exam: Dry, Intact, Normal Color, Warm Discharge Plan - Follow Up Plan Condition: FAIR Disposition: HOME/ ROUTINE Patient education suggested?: Yes Instructions: Acute Abdomen (Belly Pain), Adult (DC) Additional Instructions: follow up with primary md 1 week Referrals: Asad Lopes MD [Staff Provider] -
== END 2018-03-23 14:30 | disposition home or self-care (01) ==
LOC: H.ER 11:07 → H.ERHOLD 14:25 → H.MEDSURG1 15:50
PROVIDERS: ADMIT Internal Medicine Pulmonary Disease; ATTEND Internal Medicine Pulmonary Disease
DX: R10.13 Epigastric pain (principal); R10.12 Left upper quadrant pain; E87.6 Hypokalemia; K59.00 Constipation, unspecified; J44.1 Chronic obstructive pulmonary disease with (acute) exacerbation; E78.00 Pure hypercholesterolemia, unspecified; Z87.891 Personal history of nicotine dependence; Z90.710 Acquired absence of both cervix and uterus
CPT/HCPCS: 36415; 71046; 71250; 80048; 80076; 84484; 85025; 86140; 93005; 94640; 96374; 99285; C9113; G0378; J1170

== ENCOUNTER 2018-08-12 08:55 | Inpatient (IN) | payer MEDICARE, OTHER ==
[2018-08-12 09:00] VITALS: BMI 23.8
[2018-08-12] MEDS ORDERED: Albuterol-Ipratrop 3 mg / 0.5 (3 ml) UD IH STA (09:16)
[2018-08-12] MEDS ORDERED: Sodium Chloride 0.9% 1,000 ML IV STA ×2 (09:17→09:22)
[2018-08-12] MEDS ORDERED: Piperacillin/Tazobact 3.375 GM in Sodium Chloride 0.9% 100 ML IVPB STA (09:21)
--- NOTE | 2018-08-12 09:24 | ED PDOC ---
HPI: SOB/CHF/COPD Time Seen by Provider: 08/12/18 09:11 Chief Complaint (Nursing): Respiratory Distress Chief Complaint (Provider): Respiratory Distress History Per: Patient, EMS History/Exam Limitations: no limitations Onset/Duration Of Symptoms: Days (x1) Associated Symptoms: Fever, Dizziness, Other (Palpitations and non productive cough) Additional Complaint(s): 68 y/o female with history of AFib and COPD brought in by EMS for evaluation of shortness of breath, non productive cough, fever and dizziness since yesterday. Patient was treated by EMS with Duoneb and SOLU-Medrol with minimal improvement. PMD: Negro Solis I Past Medical History Reviewed: Historical Data, Nursing Documentation, Vital Signs Vital Signs: Last Vital Signs Temp 101 F H 08/12/18 08:58 Pulse 115 H 08/12/18 08:58 Resp 18 08/12/18 08:58 BP 112/69 08/12/18 08:58 Pulse Ox 94 L 08/12/18 09:19 - Medical History PMH: Asthma, Atrial Fibrillation, Bronchitis, COPD, Hypercholesterolemia Denies: HIV, Chronic Kidney Disease - Surgical History Surgical History: No Surg Hx - Family History Family History: States: Unknown Family Hx - Social History Current smoker - smoking cessation education provided: No Alcohol: None Drugs: Denies - Home Medications Home Medications: Ambulatory Orders Medication Instructions Recorded Tiotropium [Spiriva] 18 mcg IH DAILY #0 cap 07/09/16 Albuterol Sulfate [Ventolin Hfa] 2 puff IH Q6 PRN 03/21/18 Fluticasone/Salmeterol [Advair 1 puff IH Q12 03/21/18 250-50 Diskus] - Allergies Allergies/Adverse Reactions: Allergies Allergy/AdvReac Type Severity Reaction Status Date / Time No Known Allergies Allergy Verified 03/21/18 11:23 Review of Systems ROS Statement: Except As Marked, All Systems Reviewed And Found Negative Constitutional: Positive for: Fever Cardiovascular: Positive for: Palpitations Respiratory: Positive for: Cough (non productive), Shortness of Breath Neurological: Positive for: Dizziness Physical Exam - Reviewed Nursing Documentation Reviewed: Yes Vital Signs Reviewed: Yes - Physical Exam Appears: Positive for: Non-toxic Head Exam: Positive for: ATRAUMATIC, NORMOCEPHALIC Eye Exam: Positive for: Normal appearance, EOMI, PERRL ENT: Positive for: Normal ENT Inspection Neck: Positive for: Normal, Painless ROM, Supple Cardiovascular/Chest: Positive for: Tachycardia (with rate of 120-130), Irregularly Irregular Respiratory: Positive for: Decreased Breath Sounds, Rhonchi (scattered), Respiratory Distress (mild) Gastrointestinal/Abdominal: Positive for: Normal Exam, Soft. Negative for: Tenderness Back: Positive for: Normal Inspection. Negative for: L CVA Tenderness, R CVA Tenderness Extremity: Positive for: Normal ROM. Negative for: Tenderness, Pedal Edema Neurologic/Psych: Positive for: Alert, Oriented (x3). Negative for: Motor/Sensory Deficits - Laboratory Results Result Diagrams: 08/12/18 10:14 08/12/18 10:14 - ECG ECG Rhythm: Positive for: Sinus Tachycardia O2 Sat by Pulse Oximetry: 94 (RA) Pulse Ox Interpretation: Abnormal Medical Decision Making Medical Decision Making: Time: 915 A/P: AFib with rapid ventricular response, will treat with Cardizem IV --COPD exacerbation, will continue nebulizer treatment --Obtain CXR as patient is febrile considering pneumonia, will treat with IV Zosyn and fluids as possibility of sepsis exist 1101 No acute infiltrate shown on CXR, will treat for SIRS, AFib with RVR, exacerbation COPD and bronchitis After cardizem, patient with sinus rhythm of 74 and blood pressure of 113/[address] Solis, will admit patient to telemetry Scribe Attestation: Documented by Karla Angelo, acting as a scribe for Mina Chopra MD. Provider Scribe Attestation: All medical record entries made by the Scribe were at my direction and personally dictated by me. I have reviewed the chart and agree that the record accurately reflects my personal performance of the history, physical exam, medical decision making, and the department course for this patient. I have also personally directed, reviewed, and agree with the discharge instructions and disposition. Disposition - Clinical Impression Clinical Impression: COPD exacerbation, SIRS (systemic inflammatory response syndrome), Bronchitis, Afib - Patient ED Disposition Is Patient to be Admitted: Yes - Disposition Disposition Time: 11:01 Condition: FAIR Forms: [employer]im[employer] (Greenlandic)
[2018-08-12 09:40] LABS: VENOUS BLOOD GAS BASE EXCESS 1.2 mmol/L (0.0-2.0); VENOUS BLOOD GAS PCO2 57 mmHg (40-60); VENOUS BLOOD GAS PO2 28 mm/Hg (30-55); VENOUS BLOOD PH 7.31 (7.32-7.43)
[2018-08-12] MEDS ORDERED: Vancomycin 1 g Inj ONE (09:40)
[2018-08-12] MEDS ORDERED: Piperacillin/Tazobact 3.375 gm Inj IVPB ONE (09:40)
[2018-08-12] MEDS ORDERED: Albuterol-Ipratrop 3 mg / 0.5 (3 ml) UD ONE (09:41)
[2018-08-12 10:22] LABS: BASO % 0.2 % (0.0-2.0); EOS % 0.1 % (0.0-4.0); HEMOGLOBIN 13.8 g/dL (12.0-16.0); LYMPH # 1.9 K/uL (1.0-4.3); LYMPH % 12.1 % (20.0-40.0); MEAN CELL VOLUME 88.9 fl (81.0-99.0); MEAN CORPUSCULAR HEMOGLOBIN 29.2 pg (27.0-31.0); MEAN CORPUSCULAR HGB CONC 32.9 g/dL (33.0-37.0); MEAN PLATELET VOLUME 7.5 fl (7.2-11.7); MONO # 1.2 K/uL (0.0-0.8); MONO % 7.4 % (0.0-10.0); NEUT # 12.4 K/uL (1.8-7.0); NEUT % 80.2 % (50.0-75.0); NRBC % 0.1 % (0.0-0.0); RBC 4.74 Mil/uL (3.80-5.20); RED CELL DISTRIBUTION WIDTH 14.3 % (11.5-14.5); WHITE BLOOD COUNT 15.5 K/uL (4.8-10.8)
[2018-08-12 10:29] LABS: ALB/GLOB RATIO 1.4 (1.0-2.1); ALBUMIN 4.5 g/dL (3.5-5.0); ALT/SGPT 31 U/L (9-52); AST/SGOT 37 U/L (14-36); BLOOD UREA NITROGEN 14 mg/dl (7-17); CALCIUM 9.4 mg/dL (8.4-10.2); GFR NON-AFRICAN AMERICAN > 60
[2018-08-12] MEDS ORDERED: Sodium Chloride 3% for Inhalation 4 ML VIAL.NEB IH PRN (12:33)
[2018-08-12] MEDS: Promethazine DM 12.5 mg-30 mg/10 ml Syrup PO PRN ×2 (13:26→20:51)
[2018-08-12] MEDS: Enoxaparin 40 mg Syringe SC SCH (13:26)
[2018-08-12 13:55] LABS: T4 8.83 ug/dl (5.5-11.0)
--- NOTE | 2018-08-12 14:10 | RAD ---
Date of service: 08/12/2018 HISTORY: cough COMPARISON: Comparison chest 03/21/2018. Comparison also made with prior CT scan of the chest 03/22/2018. FINDINGS: LUNGS: Hyperinflation again noted. Significant emphysematous changes upper lobe predominance are seen to better advantage on prior CT scan.. Suspect minor bibasilar atelectasis and or scarring PLEURA: . No significant pleural effusion identified, no pneumothorax apparent. CARDIOVASCULAR: No aortic atherosclerotic calcification present. Normal cardiac size. No pulmonary vascular congestion. OSSEOUS STRUCTURES: Minor multilevel degenerative spondylosis of the thoracic spine. VISUALIZED UPPER ABDOMEN: Normal. OTHER FINDINGS: None. IMPRESSION: Hyperinflation again noted. Significant emphysematous changes upper lobe predominance are seen to better advantage on prior CT scan.. Suspect minor bibasilar atelectasis and or scarring
[2018-08-12] MEDS: Albuterol-Ipratrop 3 mg / 0.5 (3 ml) UD INH SCH ×3 (15:07→23:40)
--- NOTE | 2018-08-12 16:29 | HP ---
HISTORY OF PRESENT ILLNESS: Ms. Cartagena is a 68-year-old female who was admitted via the emergency room because of shortness of breath and rapid atrial fibrillation. She indicates that she has had shortness of breath, exercise intolerance and coughing up of greenish sputum for the past 24 hours prior to presentation, but symptoms worsened and she was brought to the emergency room by emergency medical team where she was given IV Cardizem and as well as bronchodilators and oxygen. She appears to have somewhat improved and atrial fibrillation seems to have reverted to regular sinus rhythm. PAST MEDICAL HISTORY: She has a history of chronic obstructive pulmonary disease, atrial fibrillation which is new, hyperlipidemia, colonic polyposis that was removed recently. FAMILY HISTORY: Nonrevealing. SOCIAL HISTORY: Socially, she does not smoke anymore but she used to years ago. Does not drink and lives at home with her . REVIEW OF SYSTEMS: Essentially remarkable for occasional shortness of breath. MEDICATIONS: She is on Spiriva, Ventolin inhaler, Advair and aerosolized DuoNeb at home. PHYSICAL EXAMINATION: GENERAL: The patient is alert and oriented, appears emaciated. VITAL SIGNS: Blood pressure 112/69 with a pulse of 115, respiratory rate 18. She has a temperature of 101 degrees Fahrenheit, O2 sat 94% on nasal cannula oxygen. SKIN: Shows poor turgor. NECK: JVP flat. HEENT: Mouth shows fair hygiene with mucous engorgement of pharynx. LUNGS: Bilateral audible wheezing and rales. HEART: Tachycardic but rate is not regular, on Cardizem drip. ABDOMEN: Soft, nontender. No organomegaly. EXTREMITIES: Shows no edema or cyanosis. CENTRAL NERVOUS SYSTEM: Exam is grossly intact. LABORATORY DATA: Remarkable for chest x-ray has official report pending. WBC 15.4, hemoglobin 13.8, platelet count [id number]. Sodium 140, potassium 3.6, BUN of 14, creatinine 0.5, serum glucose 150. Troponin less than 0.012. Venous blood gas pH 7.31, pCO2 of 57, pO2 of 28. Flu negative. EKG reported at the emergency room showed atrial fibrillation with rapid ventricular response. IMPRESSION: Acute exacerbation of chronic obstructive pulmonary disease, cardiac arrhythmias (atrial fibrillation with rapid ventricular response), upper respiratory tract infection with systemic inflammatory response syndrome, history of colonic polyp. PLAN: Intravenous steroids aerosolized bronchodilators. Maintain IV Cardizem drip until seen by supervisor customer services. Would give oxygen therapy. Obtain sputum for Gram stain and cultures and also obtain blood cultures. Monitor in telemetry to rule out acute coronary syndrome, IV antibiotics already started in the emergency room. We will continue therapy as ordered. Negro Solis MD
[2018-08-12] MEDS: Fluticasone-Salmeterol 250-50mcg Diskus IH SCH ×2 (16:55→23:23)
[2018-08-12] MEDS ORDERED: methylPREDNISolone 60 MG in Sodium Chloride 0.9% 50 ML IVPB SCH (17:00)
--- NOTE | 2018-08-12 20:47 | CARD ---
APPROVED REPORT Date of service: 08/12/2018 EKG Measurement Heart [id number] <Conclusion> Sinus tachycardia Left atrial enlargement ST & T wave abnormality, consider inferolateral ischemia Prolonged QT Abnormal ECG
[2018-08-13] MEDS: Albuterol-Ipratrop 3 mg / 0.5 (3 ml) UD INH SCH ×5 (03:11→19:34)
[2018-08-13 05:17] LABS: ABG ALLEN TEST YES; ARTERIAL BLOOD GAS HCO3 26.9 mmol/L (21-28); ARTERIAL BLOOD GAS HEMOGLOBIN 12.3 g/dL (11.7-17.4); ARTERIAL BLOOD GAS O2 CAPACITY 16.8 mL/dL (16-24); ARTERIAL BLOOD GAS O2 CONTENT 16.5 ML/dL (15-23); ARTERIAL BLOOD GAS O2 SAT 98.2 % (95-98); ARTERIAL BLOOD GAS PCO2 48 mm/Hg (35-45); ARTERIAL BLOOD GAS PH 7.38 (7.35-7.45); ARTERIAL BLOOD GAS PO2 92 mm/Hg (80-100); ARTERIAL BLOOD GAS TCO2 29.9 mmol/L (22-28)
[2018-08-13 05:30] LABS: BASO % 0.2 % (0.0-2.0); HEMOGLOBIN 12.1 g/dL (12.0-16.0); LYMPH # 1.1 K/uL (1.0-4.3); LYMPH % 8.2 % (20.0-40.0); MEAN CELL VOLUME 87.3 fl (81.0-99.0); MEAN CORPUSCULAR HEMOGLOBIN 29.3 pg (27.0-31.0); MEAN CORPUSCULAR HGB CONC 33.6 g/dL (33.0-37.0); MEAN PLATELET VOLUME 7.5 fl (7.2-11.7); MONO # 0.5 K/uL (0.0-0.8); MONO % 3.7 % (0.0-10.0); NEUT # 11.3 K/uL (1.8-7.0); NEUT % 87.9 % (50.0-75.0); PLATELET COUNT 197 K/uL (130-400); RBC 4.11 Mil/uL (3.80-5.20); RED CELL DISTRIBUTION WIDTH 13.9 % (11.5-14.5); WHITE BLOOD COUNT 12.9 K/uL (4.8-10.8)
[2018-08-13 05:45] LABS: BLOOD UREA NITROGEN 17 mg/dl (7-17); CALCIUM 8.6 mg/dL (8.4-10.2); GFR NON-AFRICAN AMERICAN > 60; HDL CHOLESTEROL 66 MG/DL (30-70)
[2018-08-13 05:47] LABS: LDL CHOLESTEROL 91 mg/dL (0-129)
[2018-08-13 08:26] LABS: LYMPHOCYTE 11 % (20-50); MONOCYTE 4 % (0-10); NEUTROPHIL 85 % (42-75); TOTAL CELLS COUNTED 100
[2018-08-13 08:27] LABS: ANISOCYTOSIS SLIGHT; LARGE PLATELETS PRESENT; PLATELET ESTIMATE NORMAL (NORMAL)
--- NOTE | 2018-08-13 09:30 | CP.PCM.CON ---
History of Present Illness - History of Present Illness History of Present Illness: THE PATIENT IS A 68 YEAR OLD FEMALE WITH A HISTORY OF COPD WHO HAS HAD [facility] ADMISSIONS FOR COPD EXACERBATION. 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 SHE FELT VERY SOB YESTERDAY AND WAS BROUGHT TO THE ER AND TREATED FOR COPD. SHE WAS TACHYCARDIC AND BELIEVED TO BE IN ATRIAL FIBRILLATION AND IV CARDIZEM WAS STARTED AND IN A BRIEF TIME SLOWED DOWN TO A HEART RATE OF 71. SHE DENIES ANY CARDIAC PROBLEMS OR CHEST PAIN. SHE DENIES PALPITATIONS SUCH BUT STATES THAT SHE WAS AWARE OF HER HEART BEATING FAST YESTERDAY. SHE FEELS A LITTLE BETTER TODAY. SHE STATES THAT SHE WAS TOLD IN THE PAST THAT SHE HAD A HIGH CHOLESTEROL LEVEL BUT THAT IT HAS BEEN GOOD IN RECENT YEARS AND SHE NEVER TOOK MEDICINES FOR IT. Past Patient History - Infectious Disease Hx of Infectious Diseases: None - Tetanus Immunizations Tetanus Immunization: Unknown - Past Medical History & Family History Past Medical History?: Yes - Past Social History Smoking Status: Former Smoker - CARDIAC Hx Cardiac Disorders: Yes - PULMONARY Hx Respiratory Disorders: Yes - NEUROLOGICAL Hx Neurological Disorder: No - HEENT Hx HEENT Problems: Yes Hx Cataracts: Yes (cataract sx both eyes) - RENAL Hx Chronic Kidney Disease: No - ENDOCRINE/METABOLIC Hx Endocrine Disorders: No - HEMATOLOGICAL/ONCOLOGICAL Hx Human Immunodeficiency Virus (HIV): No - INTEGUMENTARY Hx Dermatological Problems: No - MUSCULOSKELETAL/RHEUMATOLOGICAL Hx Musculoskeletal Disorders: No Hx Falls: No - GASTROINTESTINAL Hx Gastrointestinal Disorders: No - GENITOURINARY/GYNECOLOGICAL Hx Genitourinary Disorders: No - PSYCHIATRIC Hx Psychophysiologic Disorder: No Hx Substance Use: No - SURGICAL HISTORY Hx Surgeries: Yes Hx Eye Surgery: Yes (bilateral cataract) Hx Hysterectomy: Yes Hx Tubal Ligation: Yes - ANESTHESIA Hx Anesthesia: Yes Hx Anesthesia Reactions: No Meds Allergies/Adverse Reactions: Allergies Allergy/AdvReac Type Severity Reaction Status Date / Time No Known Allergies Allergy Verified 03/21/18 11:23 - Medications Medications: Current Medications Albuterol/Ipratropium (Duoneb 3 Mg/0.5 Mg (3 Ml) Ud) 3 ml INH RQ4 [facility] Last Admin: 08/13/18 07:36 Dose: 3 ml Aspirin (Aspirin Chewable) 81 mg PO DAILY [facility] Last Admin: 08/12/18 13:29 Dose: 81 mg Enoxaparin Sodium (Lovenox) 40 mg SC DAILY [facility]; Protocol Last Admin: 08/12/18 13:26 Dose: 40 mg Vancomycin HCl 500 mg/ Sodium (Chloride) 100 mls @ 100 mls/hr IVPB DAILY [facility]; Protocol Piperacillin Sod/Tazobactam (Sod 2.25 gm/ Sodium Chloride) 100 mls @ 100 mls/hr IVPB Q12 [facility]; Protocol Last Admin: 08/12/18 20:49 Dose: 100 mls/hr Methylprednisolone (Solu-Medrol) 60 mg IV Q8 [facility] Last Admin: 08/13/18 01:00 Dose: 60 mg Pantoprazole Sodium (Protonix Inj) 40 mg IVP DAILY [facility] Last Admin: 08/12/18 13:27 Dose: 40 mg Promethazine HCl/Dextromethorphan (Phenergan Dm Syrup) 10 ml PO Q6 PRN PRN Reason: Cough Last Admin: 08/12/18 20:51 Dose: 10 ml Fluticasone/Salmeterol (Advair Diskus 250/50) 1 puff IH Q12 [facility] Last Admin: 08/12/18 23:23 Dose: Not Given Zolpidem Tartrate (Ambien) 5 mg PO HS [facility] Last Admin: 08/12/18 21:01 Dose: 5 mg Physical Exam - Respiratory Exam Additional comments: MILD WHEEZING - Cardiovascular Exam Cardiovascular Exam: REGULAR RHYTHM, +S1, +S2 - Extremities Exam Extremities exam: Positive for: normal inspection - Additional Findings Additional findings: EKG YESTERDAY AT 9:16 AM SHOWED SINUS TACYCARDIA WIDTH PACS AND NSSTT CHANGES EKG THIS AM SHOWS NSR TECHNICAL PROGRAM MANAGER RHYTHM STRIPS SHOW NSR TROPONINS NORMAL X 3 K+ 3.9 CHOL 186, LDL 91 Results - Vital Signs Recent Vital Signs: Last Vital Signs Temp 98.1 F 08/13/18 07:47 Pulse 70 08/13/18 07:47 Resp 20 08/13/18 07:47 BP 99/54 L 08/13/18 07:47 Pulse Ox 97 08/13/18 07:47 - Labs Result Diagrams: 08/13/18 04:25 08/13/18 04:25 Labs: Laboratory Results - last 24 hr 08/12/18 08/12/18 08/12/18 09:35 10:14 10:14 WBC 15.5 H D RBC 4.74 Hgb 13.8 Hct 42.1 MCV 88.9 MCH 29.2 MCHC 32.9 L RDW 14.3 Plt Count 209 MPV 7.5 Neut % (Auto) 80.2 H Lymph % (Auto) 12.1 L [place] % (Auto) 7.4 Eos % (Auto) 0.1 Baso % (Auto) 0.2 Neut # (Auto) 12.4 H Lymph # (Auto) 1.9 [place] # (Auto) 1.2 H Eos # (Auto) 0.0 Baso # (Auto) 0.0 Neutrophils % (Manual) Lymphocytes % (Manual) Monocytes % (Manual) Platelet Estimate Large Platelets Anisocytosis (manual) pCO2 pO2 28 L HCO3 ABG pH ABG Total CO2 ABG O2 Saturation ABG O2 Content ABG Base Excess ABG Hemoglobin ABG Carboxyhemoglobin POC ABG HHb (Measured) ABG Methemoglobin ABG O2 Capacity Calvin Test VBG pH 7.31 L VBG pCO2 57 VBG HCO3 24.5 VBG Total CO2 30.4 H VBG O2 Sat (Calc) 58.2 VBG Base Excess 1.2 VBG Potassium 3.5 L A-a O2 Difference Hgb O2 Saturation Sodium 138.0 140 Chloride 102.0 101 Glucose 146 H Lactate 1.5 Liter Flow Vent Mode FiO2 21.0 Potassium 3.6 Carbon Dioxide 25 Anion Gap 18 BUN 14 Creatinine 0.5 L Est GFR ( Amer) > 60 Est GFR (Non-Af Amer) > 60 Random Glucose 150 H Calcium 9.4 Total Bilirubin 1.4 H AST 37 H D ALT 31 Alkaline Phosphatase 82 Troponin I < 0.0120 Total Protein 7.9 Albumin 4.5 Globulin 3.3 Albumin/Globulin Ratio 1.4 Triglycerides Cholesterol LDL Cholesterol Direct HDL Cholesterol Thyroxine (T4) TSH 3rd Generation Venous Blood Potassium 3.5 L 08/12/18 08/12/18 08/13/18 13:15 20:30 04:25 WBC 12.9 H RBC 4.11 Hgb 12.1 Hct 35.9 MCV 87.3 MCH 29.3 MCHC 33.6 RDW 13.9 Plt Count 197 MPV 7.5 Neut % (Auto) 87.9 H Lymph % (Auto) 8.2 L [place] % (Auto) 3.7 Eos % (Auto) 0.0 Baso % (Auto) 0.2 Neut # (Auto) 11.3 H Lymph # (Auto) 1.1 [place] # (Auto) 0.5 Eos # (Auto) 0.0 Baso # (Auto) 0.0 Neutrophils % (Manual) 85 H Lymphocytes % (Manual) 11 L Monocytes % (Manual) 4 Platelet Estimate Normal Large Platelets Present Anisocytosis (manual) Slight pCO2 pO2 HCO3 ABG pH ABG Total CO2 ABG O2 Saturation ABG O2 Content ABG Base Excess ABG Hemoglobin ABG Carboxyhemoglobin POC ABG HHb (Measured) ABG Methemoglobin ABG O2 Capacity Calvin Test VBG pH VBG pCO2 VBG HCO3 VBG Total CO2 VBG O2 Sat (Calc) VBG Base Excess VBG Potassium A-a O2 Difference Hgb O2 Saturation Sodium Chloride Glucose Lactate Liter Flow Vent Mode FiO2 Potassium Carbon Dioxide Anion Gap BUN Creatinine Est GFR ( Amer) Est GFR (Non-Af Amer) Random Glucose Calcium Total Bilirubin AST ALT Alkaline Phosphatase Troponin I < 0.0120 0.0130 Total Protein Albumin Globulin Albumin/Globulin Ratio Triglycerides Cholesterol LDL Cholesterol Direct HDL Cholesterol Thyroxine (T4) 8.83 TSH 3rd Generation 0.12 L Venous Blood Potassium 08/13/18 08/13/18 04:25 05:12 WBC RBC Hgb Hct MCV MCH MCHC RDW Plt Count MPV Neut % (Auto) Lymph % (Auto) [place] % (Auto) Eos % (Auto) Baso % (Auto) Neut # (Auto) Lymph # (Auto) [place] # (Auto) Eos # (Auto) Baso # (Auto) Neutrophils % (Manual) Lymphocytes % (Manual) Monocytes % (Manual) Platelet Estimate Large Platelets Anisocytosis (manual) pCO2 48 H pO2 92 HCO3 26.9 ABG pH 7.38 ABG Total CO2 29.9 H ABG O2 Saturation 98.2 H ABG O2 Content 16.5 ABG Base Excess 2.6 ABG Hemoglobin 12.3 ABG Carboxyhemoglobin 2.0 H POC ABG HHb (Measured) 1.7 ABG Methemoglobin 1.4 ABG O2 Capacity 16.8 Calvin Test Yes VBG pH VBG pCO2 VBG HCO3 VBG Total CO2 VBG O2 Sat (Calc) VBG Base Excess VBG Potassium A-a O2 Difference 205.0 Hgb O2 Saturation 95.0 Sodium 140 Chloride 107 Glucose Lactate Liter Flow 20 Vent Mode High flow lpm FiO2 50.0 Potassium 3.9 Carbon Dioxide 28 Anion Gap 9 L BUN 17 Creatinine 0.5 L Est GFR ( Amer) > 60 Est GFR (Non-Af Amer) > 60 Random Glucose 193 H Calcium 8.6 Total Bilirubin AST ALT Alkaline Phosphatase Troponin I Total Protein Albumin Globulin Albumin/Globulin Ratio Triglycerides 57 Cholesterol 186 LDL Cholesterol Direct 91 HDL Cholesterol 66 Thyroxine (T4) TSH 3rd Generation Venous Blood Potassium Assessment & Plan - Assessment and Plan (Free Text) Assessment: COPD EXACERBATION THE EKG FROM YESTERDAY MORNING SHOWED SINUS TACHYCARDIA WITH PACS AND NOT ATRIAL FIBRILLATION AND SHE IS IN SINUS RHYTHM AT NORMAL RATES THIS AM Plan: THE PATIENT WAS ADMITTED TO 4N ON TELEMETRY IV CARDIZEM HAS BEEN STOPPED CONTINUE O2, ANTIBIOTICS, BRONCHODILATORS, PHENERGAN, SOLUMEDROL, ASPIRIN AND LOVENOX CONTINUE TO MONITOR HEART RHYTHM
[2018-08-13] MEDS: Fluticasone-Salmeterol 250-50mcg Diskus IH SCH ×2 (10:20→21:32)
[2018-08-13] MEDS: Enoxaparin 40 mg Syringe SC SCH (11:07)
[2018-08-13] MEDS: Promethazine DM 12.5 mg-30 mg/10 ml Syrup PO PRN ×3 (11:07→23:07)
--- NOTE | 2018-08-13 12:58 | CP.PCM.PN ---
Subjective - Date & Time of Evaluation Date of Evaluation: 08/13/18 Time of Evaluation: 12:58 - Subjective Subjective: STILL COUGHING SOB IMPROVING NO CHEST PAIN TELE-REGULAR RHYTHM Objective - Vital Signs/Intake and Output Vital Signs (last 24 hours): Temp Pulse Resp BP Pulse Ox 98.5 F 73 18 101/53 L 99 08/13/18 11:54 08/13/18 11:54 08/13/18 11:54 08/13/18 11:54 08/13/18 11:54 - Medications Medications: Current Medications Albuterol/Ipratropium (Duoneb 3 Mg/0.5 Mg (3 Ml) Ud) 3 ml INH RQ4 [facility] Last Admin: 08/13/18 11:38 Dose: 3 ml Aspirin (Aspirin Chewable) 81 mg PO DAILY [facility] Last Admin: 08/13/18 11:09 Dose: 81 mg Enoxaparin Sodium (Lovenox) 40 mg SC DAILY [facility]; Protocol Last Admin: 08/13/18 11:07 Dose: 40 mg Vancomycin HCl 500 mg/ Sodium (Chloride) 100 mls @ 100 mls/hr IVPB DAILY [facility]; Protocol Last Admin: 08/13/18 11:10 Dose: 100 mls/hr Piperacillin Sod/Tazobactam (Sod 2.25 gm/ Sodium Chloride) 100 mls @ 100 mls/hr IVPB Q12 [facility]; Protocol Last Admin: 08/13/18 09:45 Dose: 100 mls/hr Pantoprazole Sodium (Protonix Inj) 40 mg IVP DAILY [facility] Last Admin: 08/13/18 11:09 Dose: 40 mg Promethazine HCl/Dextromethorphan (Phenergan Dm Syrup) 10 ml PO Q6 PRN PRN Reason: Cough Last Admin: 08/13/18 11:07 Dose: 10 ml Fluticasone/Salmeterol (Advair Diskus 250/50) 1 puff IH Q12 [facility] Last Admin: 08/12/18 23:23 Dose: Not Given Zolpidem Tartrate (Ambien) 5 mg PO HS [facility] Last Admin: 08/12/18 21:01 Dose: 5 mg - Labs Labs: 08/13/18 04:25 08/13/18 04:25 - Constitutional Appears: Chronically Ill - Head Exam Head Exam: ATRAUMATIC, NORMAL INSPECTION, NORMOCEPHALIC - Eye Exam Eye Exam: EOMI, Normal appearance, PERRL Pupil Exam: NORMAL ACCOMODATION, PERRL - ENT Exam ENT Exam: Mucous Membranes Moist, Normal Exam - Neck Exam Neck Exam: Full ROM, Normal Inspection. absent: Lymphadenopathy - Respiratory Exam Respiratory Exam: Decreased Breath Sounds, Prolonged Expiratory Phase, Rales, Wheezes, NORMAL BREATHING PATTERN - Cardiovascular Exam Cardiovascular Exam: REGULAR RHYTHM, +S1, +S2. absent: Murmur - GI/Abdominal Exam GI & Abdominal Exam: Soft, Normal Bowel Sounds. absent: Tenderness - Rectal Exam Rectal Exam: NORMAL INSPECTION - Extremities Exam Extremities Exam: Full ROM, Normal Capillary Refill, Normal Inspection. absent: Joint Swelling, Pedal Edema - Back Exam Back Exam: NORMAL INSPECTION - Neurological Exam Neurological Exam: Alert, Awake, CN II-XII Intact, Normal Gait, Oriented x3 - Psychiatric Exam Psychiatric exam: Normal Affect, Normal Mood - Skin Skin Exam: Dry, Intact, Normal Color, Warm Assessment and Plan - Assessment and Plan (Free Text) Assessment: COPD EXAC URI CARDIAC ARRYTHMIAS--RECORDED SINUS TACH BY ASSEMBLY LEADER Plan: CONTINUE CURRENT RX TAPER STEROIDS AND D/C HIGH FLOW O2 NO NEED FOR ANTI-ARRYTHMIC RX OR ANTICOAGULATION RX INCREASE ACTIVITY
[2018-08-13] MEDS: MethylPREDNISolone 40 mg Vial IV SCH (18:06)
[2018-08-14] MEDS: Albuterol-Ipratrop 3 mg / 0.5 (3 ml) UD INH SCH ×3 (00:46→07:45)
[2018-08-14] MEDS: MethylPREDNISolone 40 mg Vial IV SCH ×2 (01:11→08:18)
--- NOTE | 2018-08-14 03:05 | CARD ---
APPROVED REPORT Date of service: 08/13/2018 EXAM: Two-dimensional and M-mode echocardiogram with Doppler and color Doppler. Other Information Quality : AverageRhythm : Atrial Fibrillation INDICATION Atrial Fibrillation 2D DIMENSIONS IVSd0.92 (0.7-1.1cm)LVDd4.92 (3.9-5.9cm) LVOT Diameter2.21 (1.8-2.4cm)PWd0.81 (0.7-1.1cm) IVSs1.15 (0.8-1.2cm)LVDs3.50 (2.5-4.0cm) FS (%) 28.8 %PWs0.98 (0.8-1.2cm) M-Mode DIMENSIONS Left Atrium (MM)2.26 (2.5-4.0cm)IVSd0.91 (0.7-1.1cm) Aortic Root2.44 (2.2-3.7cm)LVDd4.74 (4.0-5.6cm) Aortic Cusp Exc.1.53 (1.5-2.0cm)PWd0.82 (0.7-1.1cm) IVSs1.47 cmFS (%) 47 % LVDs2.53 (2.0-3.8cm)PWs1.62 cm Aortic Valve AoV Peak Jccybbpt889.9cm/sAoV VTI35.8cmAO Peak GR.13mmHg LVOT Peak Hcryxwof255.3cm/sLVOT VTI21.21cmAO Mean GR.7mmHg JONATAN (VMAX)1.69ng4BWR (VTI)1.42cm2 Mitral Valve MV E Fpwzldtd21.7cm/sMV DECEL [id number] A Igvqnmgk32.7cm/s MV ZDJ97ecI/A ratio1.1MVA (PHT)2.42cm2 TDI Lateral E' Peak V13.85cm/sMedial E' Peak V11.49cm/sE/Lateral E'6.4 E/Medial E'7.7 LEFT VENTRICLE The left ventricle is normal size. There is normal left ventricular wall thickness. The left ventricular systolic function is normal. The estimated ejection fraction is 60-65% No regional wall motion abnormalities noted.. The left ventricular diastolic function is normal. No left ventricle thrombus noted on this study. There is no ventricular septal defect visualized. There is no left ventricular aneurysm. There is no mass noted in the left ventricle. RIGHT VENTRICLE The right ventricle is normal size. There is normal right ventricular wall thickness. The right ventricular systolic function is normal. ATRIA The left atrium size is normal. The right atrium size is normal. The interatrial septum is aneurysmal with no evidence of PFO or ASD. AORTIC VALVE The aortic valve is normal in structure. No aortic regurgitation is present. There is no aortic valvular stenosis. There is no aortic valvular vegetation. MITRAL VALVE The mitral valve is normal in structure. There is no evidence of mitral valve prolapse. There is no mitral valve stenosis. There is trace mitral valve regurgitation noted. TRICUSPID VALVE The tricuspid valve is normal in structure. There is trace tricuspid valve regurgitation noted. There is no tricuspid valve prolapse or vegetation. There is no tricuspid valve stenosis. PULMONIC VALVE The pulmonary valve is normal in structure. There is no pulmonic valvular regurgitation. There is no pulmonic valvular stenosis. GREAT VESSELS The aortic root is normal in size. The ascending aorta is normal in size. The pulmonary artery is normal. The IVC is normal in size and collapses >50% with inspiration. PERICARDIAL EFFUSION There is no pericardial effusion. There is no pleural effusion. <Conclusion> The estimated ejection fraction is 60-65% The left ventricular diastolic function is normal. The left atrium size is normal. The interatrial septum is aneurysmal with no evidence of PFO or ASD. There is trace mitral valve regurgitation noted. There is trace tricuspid valve regurgitation noted.
--- NOTE | 2018-08-14 03:09 | CARD ---
APPROVED REPORT Date of service: 08/13/2018 EKG Measurement Heart [id number] <Conclusion> Sinus rhythm with premature atrial complexes Otherwise normal ECG
[2018-08-14 07:49] VITALS: PULSE 98; RESP 18; O2SAT 93
[2018-08-14] MEDS: Fluticasone-Salmeterol 250-50mcg Diskus IH SCH (08:16)
[2018-08-14] MEDS: Enoxaparin 40 mg Syringe SC SCH (08:17)
[2018-08-14] MEDS: Promethazine DM 12.5 mg-30 mg/10 ml Syrup PO PRN (08:17)
[2018-08-14 11:42] VITALS: BP 110/51; TEMP 98.1
--- NOTE | 2018-08-14 12:08 | CP.PCM.DIS ---
Provider - Provider Date of Admission: 08/12/18 10:59 Attending physician: Negro Solis MD Consults: 08/12/18 18:28 Cardiology Consult Routine Comment: Consulting Provider: Adam Wallis Consulting Physician: Adam Wallis Reason for Consult: Afib Time Spent in preparation of Discharge (in minutes): 35 Diagnosis - Discharge Diagnosis (1) COPD exacerbation Status: Acute (2) SIRS (systemic inflammatory response syndrome) Status: Acute (3) DVT prophylaxis Status: Acute (4) Multifocal atrial tachycardia Status: Acute (5) Respiratory failure Status: Acute (6) Upper respiratory infection Status: Acute Hospital Course - Lab Results Lab Results: Micro Results 08/12/18 10:14 Blood Blood Culture - Preliminary NO GROWTH AFTER 48 HOURS 08/12/18 14:24 Sputum Gram Stain - Final Most Recent Lab Values WBC 12.9 K/uL (4.8-10.8) H 08/13/18 04:25 RBC 4.11 Mil/uL (3.80-5.20) 08/13/18 04:25 Hgb 12.1 g/dL (12.0-16.0) 08/13/18 04:25 Hct 35.9 % (34.0-47.0) 08/13/18 04:25 MCV 87.3 fl (81.0-99.0) 08/13/18 04:25 MCH 29.3 pg (27.0-31.0) 08/13/18 04:25 MCHC 33.6 g/dL (33.0-37.0) 08/13/18 04:25 RDW 13.9 % (11.5-14.5) 08/13/18 04:25 Plt Count 197 K/uL (130-400) 08/13/18 04:25 MPV 7.5 fl (7.2-11.7) 08/13/18 04:25 Neut % (Auto) 87.9 % (50.0-75.0) H 08/13/18 04:25 Lymph % (Auto) 8.2 % (20.0-40.0) L 08/13/18 04:25 [place] % (Auto) 3.7 % (0.0-10.0) 08/13/18 04:25 Eos % (Auto) 0.0 % (0.0-4.0) 08/13/18 04:25 Baso % (Auto) 0.2 % (0.0-2.0) 08/13/18 04:25 Neut # (Auto) 11.3 K/uL (1.8-7.0) H 08/13/18 04:25 Lymph # (Auto) 1.1 K/uL (1.0-4.3) 08/13/18 04:25 [place] # (Auto) 0.5 K/uL (0.0-0.8) 08/13/18 04:25 Eos # (Auto) 0.0 K/uL (0.0-0.7) 08/13/18 04:25 Baso # (Auto) 0.0 K/uL (0.0-0.2) 08/13/18 04:25 Neutrophils % (Manual) 85 % (42-75) H 08/13/18 04:25 Lymphocytes % (Manual) 11 % (20-50) L 08/13/18 04:25 Monocytes % (Manual) 4 % (0-10) 08/13/18 04:25 Platelet Estimate Normal (NORMAL) 08/13/18 04:25 Large Platelets Present 08/13/18 04:25 Anisocytosis (manual) Slight 08/13/18 04:25 pCO2 48 mm/Hg (35-45) H 08/13/18 05:12 pO2 92 mm/Hg (80-100) 08/13/18 05:12 HCO3 26.9 mmol/L (21-28) 08/13/18 05:12 ABG pH 7.38 (7.35-7.45) 08/13/18 05:12 ABG Total CO2 29.9 mmol/L (22-28) H 08/13/18 05:12 ABG O2 Saturation 98.2 % (95-98) H 08/13/18 05:12 ABG O2 Content 16.5 ML/dL (15-23) 08/13/18 05:12 ABG Base Excess 2.6 mmol/L (-2.0-3.0) 08/13/18 05:12 ABG Hemoglobin 12.3 g/dL (11.7-17.4) 08/13/18 05:12 ABG Carboxyhemoglobin 2.0 % (0.5-1.5) H 08/13/18 05:12 POC ABG HHb (Measured) 1.7 % (0.0-5.0) 08/13/18 05:12 ABG Methemoglobin 1.4 % (0.0-3.0) 08/13/18 05:12 ABG O2 Capacity 16.8 mL/dL (16-24) 08/13/18 05:12 Calvin Test Yes 08/13/18 05:12 VBG pH 7.31 (7.32-7.43) L 08/12/18 09:35 VBG pCO2 57 mmHg (40-60) 08/12/18 09:35 VBG HCO3 24.5 mmol/L 08/12/18 09:35 VBG Total CO2 30.4 mmol/L (22-28) H 08/12/18 09:35 VBG O2 Sat (Calc) 58.2 % (40-65) 08/12/18 09:35 VBG Base Excess 1.2 mmol/L (0.0-2.0) 08/12/18 09:35 VBG Potassium 3.5 mmol/L (3.6-5.2) L 08/12/18 09:35 A-a O2 Difference 205.0 mm/Hg 08/13/18 05:12 Hgb O2 Saturation 95.0 % (95.0-98.0) 08/13/18 05:12 Sodium 138.0 mmol/L (132-148) 08/12/18 09:35 Chloride 102.0 mmol/L (98-107) 08/12/18 09:35 Glucose 146 mg/dL (65-105) H 08/12/18 09:35 Lactate 1.5 mmol/L (0.7-2.1) 08/12/18 09:35 Liter Flow 20 08/13/18 05:12 Vent Mode High flow lpm 08/13/18 05:12 FiO2 50.0 % 08/13/18 05:12 Sodium 140 mmol/l (132-148) 08/13/18 04:25 Potassium 3.9 MMOL/L (3.6-5.0) 08/13/18 04:25 Chloride 107 mmol/L (98-107) 08/13/18 04:25 Carbon Dioxide 28 mmol/L (22-30) 08/13/18 04:25 Anion Gap 9 (10-20) L 08/13/18 04:25 BUN 17 mg/dl (7-17) 08/13/18 04:25 Creatinine 0.5 mg/dl (0.7-1.2) L 08/13/18 04:25 Est GFR ( Amer) > 60 08/13/18 04:25 Est GFR (Non-Af Amer) > 60 08/13/18 04:25 Random Glucose 193 mg/dL (65-105) H 08/13/18 04:25 Calcium 8.6 mg/dL (8.4-10.2) 08/13/18 04:25 Total Bilirubin 1.4 mg/dl (0.2-1.3) H 08/12/18 10:14 AST 37 U/L (14-36) H D 08/12/18 10:14 ALT 31 U/L (9-52) 08/12/18 10:14 Alkaline Phosphatase 82 U/L (38-126) 08/12/18 10:14 Troponin I 0.0130 ng/mL (0.00-0.120) 08/12/18 20:30 Total Protein 7.9 G/DL (6.3-8.2) 08/12/18 10:14 Albumin 4.5 g/dL (3.5-5.0) 08/12/18 10:14 Globulin 3.3 gm/dL (2.2-3.9) 08/12/18 10:14 Albumin/Globulin Ratio 1.4 (1.0-2.1) 08/12/18 10:14 Triglycerides 57 mg/DL (0-149) 08/13/18 04:25 Cholesterol 186 mg/dL (0-199) 08/13/18 04:25 LDL Cholesterol Direct 91 mg/dL (0-129) 08/13/18 04:25 HDL Cholesterol 66 MG/DL (30-70) 08/13/18 04:25 Thyroxine (T4) 8.83 ug/dl (5.5-11.0) 08/12/18 13:15 TSH 3rd Generation 0.12 mIU/ML (0.46-4.68) L 08/12/18 13:15 Venous Blood Potassium 3.5 mmol/L (3.6-5.2) L 08/12/18 09:35 - Hospital Course Hospital Course: CLINICALLY IMPROVED SOB RESOLVED COUGH LESS Discharge Exam - Head Exam Head Exam: ATRAUMATIC, NORMAL INSPECTION, NORMOCEPHALIC - Eye Exam Eye Exam: EOMI, Normal appearance, PERRL Pupil Exam: NORMAL ACCOMODATION, PERRL - Respiratory Exam Respiratory Exam: Prolonged Expiratory Phase - GI/Abdominal Exam GI & Abdominal Exam: Normal Bowel Sounds - Rectal Exam Rectal Exam: NORMAL INSPECTION - Neurological Exam Neurological exam: Alert, CN II-XII Intact, Normal Gait, Oriented x3, Reflexes Normal - Psychiatric Exam Psychiatric exam: Normal Affect, Normal Mood - Skin Skin Exam: Dry, Intact, Normal Color, Warm Discharge Plan - Follow Up Plan Condition: FAIR Disposition: HOME/ ROUTINE Additional Instructions: DISHARGE TODAY ON MEDROL,PHENERGAN DM AND ZPAK
--- NOTE | 2018-08-15 09:19 | PQF ---
PROVIDER RESPONSE TEXT: SEPSIS RULED OUT PT HAS SIRS AND UPPER RESPIRATORY INFECTION ATRIAL FIBRILLATION RULED OUT--PT HAD SINUS TACHYCARDIA DUE TO COPD REVIEWER QUERY TEXT: Rule Out Sepsis Clarification Possible Sepsis is documented in the Medical Record by the ER physician and then the diagnosis is dana pped. . Please clarify whether: -- Patient has sepsis - Please document confirmed, suspected or probable localized infection -- Sepsis was ruled out (include corresponding diagnosis for patient?s clinical picture and treatment ) -- Other, please specify The patient's Clinical Indicators include: 68 y/o female with history of AFib and COPD brought in by EMS for evaluation of shortness of breath, non productive cough, fever and dizziness since yesterday ER: A/P: AFib with rapid ventricular response, will treat with Cardizem IV --COPD exacerbation, will continue nebulizer treatment --Obtain CXR as patient is febrile considering pneumonia, will treat with IV Zosyn and fluids as poss ibility of sepsis exist WBC 15.5 L shift, SPUTUM CS Pending , BLOOD CS No growth 24 hours, lactate 1.5 TEMP 101, 98.7, 97,8, 98.5, 98.1 HR 115, 126, 123, 110, 106, 98 BP: 112/69, 112/59, 112/59, 106/66, 106/65 R 18, 20, 20, 19, 29, 19, 19 O2 Sat 98, 94, 93, 94, 96. 100, 94 Rx: IVAB Query created by: Rachel Graza on 08/13/2018 11:00 AM Electronically signed by: Negro Solis MD 08/15/2018 9:16 AM
--- NOTE | 2018-08-17 11:57 | PQF ---
PROVIDER RESPONSE TEXT: ACUTE RESPIRATORY FAILURE RULED IN---DUE TO COPD EXACERBATION REVIEWER QUERY TEXT: Documentation Clarification Your help is requested in clarifying the following clinical documentation. Respiratory failure docume nted in Discharge Summary, if you can please further specify in the medical record and discharge sum keyla if diagnosis of respiratory failure was ruled in or out. The patient's Clinical Indicators include: Lowest O2 saturation 93%. Respiratory rate 16-24. One rate of 29. Query created by: Annette Lopez on 08/15/2018 1:47 PM Electronically signed by: Negro Solis MD 08/17/2018 11:54 AM
== END 2018-08-14 14:40 | disposition home or self-care (01) | DRG 189 ==
LOC: H.ER 08:55 → H.ERHOLD 10:59 → H.TEL 11:52
PROVIDERS: ADMIT Internal Medicine Pulmonary Disease; ATTEND Internal Medicine Pulmonary Disease
PROC: 5A0945Z Assistance with Respiratory Ventilation, 24-96 Consecutive Hours (ICD-10-PCS; principal; 2018-08-12)
DX: J96.00 Acute respiratory failure, unspecified whether with hypoxia or hypercapnia (principal); J44.1 Chronic obstructive pulmonary disease with (acute) exacerbation; R65.10 Systemic inflammatory response syndrome (SIRS) of non-infectious origin without acute organ dysfunction; I47.1 Supraventricular tachycardia; J06.9 Acute upper respiratory infection, unspecified; E78.00 Pure hypercholesterolemia, unspecified; E78.5 Hyperlipidemia, unspecified; Z86.010 Personal history of colon polyps; Z87.891 Personal history of nicotine dependence

== ENCOUNTER 2018-08-21 13:15 | Inpatient (IN) | payer MEDICARE, OTHER ==
[2018-08-21 13:26] VITALS: BMI 23.0
[2018-08-21] MEDS ORDERED: Albuterol-Ipratrop 3 mg / 0.5 (3 ml) UD IH STA ×2 (13:53→13:54)
[2018-08-21] MEDS ORDERED: Albuterol-Ipratrop 3 mg / 0.5 (3 ml) UD ONE (14:10)
--- NOTE | 2018-08-21 14:21 | ED PDOC ---
HPI: SOB/CHF/COPD Time Seen by Provider: 08/21/18 13:40 Chief Complaint (Nursing): Respiratory Distress Chief Complaint (Provider): shortness of breathing, wheezing, cough History Per: Patient History/Exam Limitations: no limitations Onset/Duration Of Symptoms: Days (3) Current Symptoms Are (Timing): Still Present Associated Symptoms: Productive Cough. denies: Chest Pain Additional Complaint(s): 68 year old female presents to the ED for shortness of breath, wheezing and cough. Patient was referred to the ED by PMD for further evaluation. Patient reports of productive green sputum onset for 3 days. She was recently discharged from the hospital with exacerbation of COPD and atrial fibrillation. Otherwise, she denies chest pain or palpitations. PMD: Negro Solis I Past Medical History Reviewed: Historical Data, Nursing Documentation, Vital Signs Vital Signs: Last Vital Signs Temp 98.1 F 08/21/18 13:27 Pulse 83 08/21/18 13:27 Resp 22 08/21/18 14:03 BP 128/73 08/21/18 13:27 Pulse Ox 94 L 08/21/18 13:27 - Medical History PMH: Asthma, Atrial Fibrillation, Bronchitis, COPD, Hypercholesterolemia Denies: HIV, Chronic Kidney Disease - Surgical History Surgical History: Appendectomy - Family History Family History: States: Unknown Family Hx - Social History Current smoker - smoking cessation education provided: No Alcohol: None Drugs: Denies - Home Medications Home Medications: Ambulatory Orders Medication Instructions Recorded Tiotropium [Spiriva] 18 mcg IH DAILY #0 cap 07/09/16 Albuterol Sulfate [Ventolin Hfa] 2 puff IH Q6 PRN 03/21/18 Fluticasone/Salmeterol [Advair 1 puff IH Q12 03/21/18 250-50 Diskus] Albuterol/Ipratropium [Duoneb 3 3 ml INH RQ4 #100 neb 08/14/18 mg/0.5 mg (3 ml) UD] Azithromycin [Zithromax] 250 mg PO ASDIR #6 tab 08/14/18 Methylprednisolone [Medrol Dose 4 mg PO ASDIR #21 mg 08/14/18 Pack (21 tabs)] Promethazine DM [Phenergan DM 10 ml PO Q6 7 Days #1 cup 08/14/18 Syrup] - Allergies Allergies/Adverse Reactions: Allergies Allergy/AdvReac Type Severity Reaction Status Date / Time No Known Allergies Allergy Verified 08/21/18 13:41 Review of Systems ROS Statement: Except As Marked, All Systems Reviewed And Found Negative Cardiovascular: Negative for: Chest Pain, Palpitations Respiratory: Positive for: Cough, Shortness of Breath, Sputum Physical Exam - Reviewed Nursing Documentation Reviewed: Yes Vital Signs Reviewed: Yes - Physical Exam Appears: Positive for: Non-toxic, No Acute Distress Head Exam: Positive for: ATRAUMATIC, NORMAL INSPECTION, NORMOCEPHALIC Skin: Positive for: Normal Color, Warm, Dry. Negative for: Rash Eye Exam: Positive for: EOMI, Normal appearance, PERRL ENT: Positive for: Normal ENT Inspection Neck: Positive for: Normal, Painless ROM Cardiovascular/Chest: Positive for: Regular Rate, Rhythm Respiratory: Positive for: Rhonchi. Negative for: Normal Breath Sounds (decreased breath sounds bilaterally with rhonchi), Respiratory Distress Gastrointestinal/Abdominal: Positive for: Normal Exam, Soft Back: Positive for: Normal Inspection Extremity: Positive for: Normal ROM. Negative for: Tenderness, Pedal Edema, Deformity Neurologic/Psych: Positive for: Alert, Oriented (x3). Negative for: Motor/Sensory Deficits - Laboratory Results Result Diagrams: 08/21/18 14:20 08/21/18 14:20 - ECG O2 Sat by Pulse Oximetry: 94 (RA) Pulse Ox Interpretation: Normal Medical Decision Making Medical Decision Making: Time: 1352 Initial impression: Patient presents with shortness of breath and cough. Will obtain CXR and influenza swab as well as treat with meds and SOLU-MEDROL Initial Plan: VBG Shock Panel EKG CMP CBC w/ Differential Chest Two (PA/LAT) Albuterol 3ml SOLU-Medrol 125mg Blood Culture Peak Flow PRE/POST TX Influenza A B Reevaluation Scribe Attestation: Documented by Erwin Calderón, acting as a scribe for Mina Chopra MD. Provider Scribe Attestation: All medical record entries made by the Scribe were at my direction and personally dictated by me. I have reviewed the chart and agree that the record accurately reflects my personal performance of the history, physical exam, medical decision making, and the department course for this patient. I have also personally directed, reviewed, and agree with the discharge instructions and disposition. Disposition - Clinical Impression Clinical Impression: COPD exacerbation - Patient ED Disposition Is Patient to be Admitted: Yes - Disposition Disposition Time: 15:26 Condition: FAIR Forms: [employer] (Tajik) - Pt Status Changed To: Hospital Disposition Of: Observation - POA Present On Arrival: None
[2018-08-21 14:35] LABS: VENOUS BLOOD GAS BASE EXCESS 10.5 mmol/L (0.0-2.0); VENOUS BLOOD GAS PCO2 64 mmHg (40-60); VENOUS BLOOD GAS PO2 22 mm/Hg (30-55); VENOUS BLOOD PH 7.39 (7.32-7.43)
[2018-08-21 14:36] LABS: BASO % 0.3 % (0.0-2.0); EOS # 0.2 K/uL (0.0-0.7); EOS % 1.6 % (0.0-4.0); LYMPH # 1.8 K/uL (1.0-4.3); MEAN CELL VOLUME 90.1 fl (81.0-99.0); MEAN CORPUSCULAR HEMOGLOBIN 29.1 pg (27.0-31.0); MEAN CORPUSCULAR HGB CONC 32.3 g/dL (33.0-37.0); MEAN PLATELET VOLUME 6.9 fl (7.2-11.7); MONO % 6.7 % (0.0-10.0); NEUT # 11.6 K/uL (1.8-7.0); NEUT % 79.4 % (50.0-75.0); RBC 5.14 Mil/uL (3.80-5.20); RED CELL DISTRIBUTION WIDTH 14.6 % (11.5-14.5); WHITE BLOOD COUNT 14.6 K/uL (4.8-10.8)
[2018-08-21 14:54] LABS: ALB/GLOB RATIO 1.3 (1.0-2.1); ALBUMIN 3.9 g/dL (3.5-5.0); ALT/SGPT 33 U/L (9-52); AST/SGOT 21 U/L (14-36); BLOOD UREA NITROGEN 16 mg/dl (7-17); CALCIUM 9.9 mg/dL (8.4-10.2); GFR NON-AFRICAN AMERICAN > 60
--- NOTE | 2018-08-21 15:25 | RAD ---
Date of service: 08/21/2018 HISTORY: cough COMPARISON: Comparison chest dated 08/12/2018. Comparison also made with CT scan chest dated the 03/22/2018. TECHNIQUE: Chest PA and lateral FINDINGS: LUNGS: Hyperinflation/emphysematous changes less well seen on this study compared to high-resolution CT chest.. Minor bibasilar atelectasis and or scarring. PLEURA: No significant pleural effusion identified. No pneumothorax apparent. CARDIOVASCULAR: No aortic atherosclerotic calcification present. Normal cardiac size. No pulmonary vascular congestion. OSSEOUS STRUCTURES: No significant abnormalities. VISUALIZED UPPER ABDOMEN: Normal. OTHER FINDINGS: None. IMPRESSION: Hyperinflation/emphysematous changes less well seen on this study compared to high-resolution CT chest.. Minor bibasilar atelectasis and or scarring.
[2018-08-21] MEDS: Albuterol-Ipratrop 3 mg / 0.5 (3 ml) UD INH SCH (19:37)
--- NOTE | 2018-08-21 20:33 | CARD ---
APPROVED REPORT Date of service: 08/21/2018 EKG Measurement Heart [id number] <Conclusion> Normal sinus rhythm Nonspecific ST abnormality Abnormal ECG
[2018-08-21] MEDS ORDERED: levoFLOXacin 500 mg in D5W 500 MG/100 ML BAG IVPB SCH (21:00)
[2018-08-21] MEDS: Fluticasone-Salmeterol 250-50mcg Diskus IH SCH (22:19)
[2018-08-21] MEDS: Promethazine DM 12.5 mg-30 mg/10 ml Syrup PO PRN (22:21)
[2018-08-22] MEDS ORDERED: methylPREDNISolone 80 MG in Sodium Chloride 0.9% 50 ML IV SCH (01:00)
[2018-08-22] MEDS: Albuterol-Ipratrop 3 mg / 0.5 (3 ml) UD INH SCH ×4 (01:06→19:16)
[2018-08-22] MEDS: Promethazine DM 12.5 mg-30 mg/10 ml Syrup PO PRN ×4 (04:31→21:33)
[2018-08-22] MEDS: Fluticasone-Salmeterol 250-50mcg Diskus IH SCH ×2 (08:26→21:33)
[2018-08-22] MEDS ORDERED: levoFLOXacin 500 mg in D5W 500 MG/100 ML BAG IVPB SCH (09:00)
--- NOTE | 2018-08-22 17:49 | HP ---
HISTORY OF PRESENT ILLNESS: Ms. Cartagena is a 68-year-old female who was admitted via the emergency room because of shortness of breath, exercise intolerance, cough, chest tightness for the past 24 hours prior to presentation. She was recently discharged from [facility] after therapy for exacerbation of chronic obstructive pulmonary disease and cardiac arrhythmias. She improved, was discharged home and 24 hours ago she developed similar symptoms to what she had before and was sent to the emergency room where she was reevaluated and readmitted for acute exacerbation of chronic obstructive pulmonary disease. PAST MEDICAL HISTORY: She has a past medical history of chronic obstructive lung disease, hyperlipidemia, tachycardia and status post appendectomy. FAMILY HISTORY: Noncontributory. SOCIAL HISTORY: Socially, she used to smoke years ago but quit. Does not drink and does not use drugs. REVIEW OF SYSTEMS: Essentially remarkable for occasional shortness of breath. PHYSICAL EXAMINATION: GENERAL:: The patient is alert, oriented, appears to be in moderate distress because of shortness of breath and cough. VITAL SIGNS: Blood pressure 128/73, pulse of 83, respiratory rate 22 per minute. She is febrile. O2 sat 94% on nasal cannula oxygen. SKIN: Fair turgor. HEENT: Pupils are equal and react to light and accommodation. JVP flat. Mouth shows fair hygiene with mucous engorgement of pharynx. LUNGS: Bilateral scattered rales and wheezing with dullness at both bases. HEART: Regular rhythm. No murmurs or gallops appreciated. ABDOMEN: Soft, nontender, no organomegaly. EXTREMITIES: Show no edema or cyanosis. CENTRAL NERVOUS SYSTEM: Grossly intact. LABORATORY DATA: WBC 14.6, hemoglobin 15, platelet count 295,000. Sodium 140, potassium 3.5, BUN of 16, creatinine 0.5, serum glucose 109. Chest x-ray shows no acute cardiopulmonary pathology. EKG normal sinus rhythm, nonspecific ST-T changes. IMPRESSION: Acute exacerbation of chronic obstructive pulmonary disease, leukocytosis, probably secondary to steroid therapy, mucus plugging of airways, history of tachycardia, now resolved. PLAN: The plan is intravenous steroids and aerosolized bronchodilators. We will give Mucomyst to help expectorate specimen. Continue therapy as ordered, oxygen therapy already instituted. Further therapy will depend on findings. Negro Solis MD [facility] # [phone]
[2018-08-22] MEDS ORDERED: Acetylcysteine 20% Inhal Soln (4ml) INH SCH (20:00)
[2018-08-22] MEDS ORDERED: Enoxaparin 40 mg Syringe SC SCH (21:00)
[2018-08-22] MEDS: levoFLOXacin 500 mg in D5W 500 MG/100 ML BAG IVPB SCH (21:32)
[2018-08-23] MEDS: Albuterol-Ipratrop 3 mg / 0.5 (3 ml) UD INH SCH ×4 (01:10→20:27)
--- NOTE | 2018-08-23 08:56 | CP.PCM.PN ---
Subjective - Date & Time of Evaluation Date of Evaluation: 08/23/18 Time of Evaluation: 08:57 - Subjective Subjective: SOB GRADUALLY IMPROVING UNABLE TO EXPECTORATE SPUTUM CANNOT TOLERATE MUCOMYST Objective - Vital Signs/Intake and Output Vital Signs (last 24 hours): Temp Pulse Resp BP Pulse Ox 97.9 F 108 H 20 100/57 L 93 L 08/23/18 08:26 08/23/18 08:26 08/23/18 08:26 08/23/18 08:26 08/23/18 08:26 - Medications Medications: Current Medications Albuterol/Ipratropium (Duoneb 3 Mg/0.5 Mg (3 Ml) Ud) 3 ml INH RQ6 [facility] Last Admin: 08/23/18 07:47 Dose: 3 ml Enoxaparin Sodium (Lovenox) 40 mg SC DAILY [facility]; Protocol Last Admin: 08/22/18 21:33 Dose: 40 mg Levofloxacin/Dextrose (Levaquin 500mg) 500 mg in 100 mls @ 100 mls/hr IVPB DAILY@2100 [facility]; Protocol Last Admin: 08/22/18 21:32 Dose: 100 mls/hr Promethazine HCl/Dextromethorphan (Phenergan Dm Syrup) 10 ml PO Q4 PRN PRN Reason: Cough Last Admin: 08/22/18 21:33 Dose: 10 ml Fluticasone/Salmeterol (Advair Diskus 250/50) 1 puff IH Q12 [facility] Last Admin: 08/22/18 21:33 Dose: 1 puff Zolpidem Tartrate (Ambien) 5 mg PO HS PRN PRN Reason: Insomnia Last Admin: 08/23/18 01:24 Dose: 5 mg - Labs Labs: 08/21/18 14:20 08/21/18 14:20 - Constitutional Appears: No Acute Distress - Head Exam Head Exam: ATRAUMATIC, NORMAL INSPECTION, NORMOCEPHALIC - Eye Exam Eye Exam: EOMI, Normal appearance, PERRL Pupil Exam: NORMAL ACCOMODATION, PERRL - ENT Exam ENT Exam: Mucous Membranes Moist, Normal Exam - Neck Exam Neck Exam: Full ROM, Normal Inspection. absent: Lymphadenopathy - Respiratory Exam Respiratory Exam: Clear to Ausculation Bilateral, NORMAL BREATHING PATTERN - Cardiovascular Exam Cardiovascular Exam: REGULAR RHYTHM, +S1, +S2. absent: Murmur - GI/Abdominal Exam GI & Abdominal Exam: Soft, Normal Bowel Sounds. absent: Tenderness - Rectal Exam Rectal Exam: NORMAL INSPECTION - Extremities Exam Extremities Exam: Full ROM, Normal Capillary Refill, Normal Inspection. absent: Joint Swelling, Pedal Edema - Back Exam Back Exam: NORMAL INSPECTION - Neurological Exam Neurological Exam: Alert, Awake, CN II-XII Intact, Normal Gait, Oriented x3 - Psychiatric Exam Psychiatric exam: Normal Affect, Normal Mood - Skin Skin Exam: Dry, Intact, Normal Color, Warm Assessment and Plan - Assessment and Plan (Free Text) Assessment: COPD EXAC MUCUS PLUGGING OF AIRWAYS Plan: TAPER STEROIDS D/C MUCOMYST BEGIN MUCINEX DM INCREASE ACTIVITY
[2018-08-23] MEDS: Fluticasone-Salmeterol 250-50mcg Diskus IH SCH ×2 (09:01→21:16)
[2018-08-23] MEDS: Promethazine DM 12.5 mg-30 mg/10 ml Syrup PO PRN ×3 (09:06→22:29)
[2018-08-23] MEDS: MethylPREDNISolone 40 mg Vial IV SCH ×2 (09:10→16:10)
[2018-08-23] MEDS: guaiFENesin-DM 600-30 mg ER Tab PO SCH ×2 (09:30→16:10)
[2018-08-23] MEDS: Enoxaparin 40 mg Syringe SC SCH (21:17)
[2018-08-23] MEDS: levoFLOXacin 500 mg in D5W 500 MG/100 ML BAG IVPB SCH (21:19)
[2018-08-24] MEDS: MethylPREDNISolone 40 mg Vial IV SCH ×3 (00:03→16:19)
[2018-08-24] MEDS: Albuterol-Ipratrop 3 mg / 0.5 (3 ml) UD INH SCH ×4 (01:00→19:14)
[2018-08-24] MEDS: Promethazine DM 12.5 mg-30 mg/10 ml Syrup PO PRN ×3 (08:50→21:22)
[2018-08-24] MEDS: Fluticasone-Salmeterol 250-50mcg Diskus IH SCH ×2 (08:50→21:20)
[2018-08-24] MEDS: guaiFENesin-DM 600-30 mg ER Tab PO SCH ×2 (08:50→16:18)
--- NOTE | 2018-08-24 12:01 | CP.PCM.PN ---
Subjective - Date & Time of Evaluation Date of Evaluation: 08/24/18 Time of Evaluation: 12:01 - Subjective Subjective: SOB PERSISTS STILL HAS AUDIBLE RALES AND WHEEZING NO CHEST PAINS REFUSES MUCOMYST RX Objective - Vital Signs/Intake and Output Vital Signs (last 24 hours): Temp Pulse Resp BP Pulse Ox 98.5 F 91 H 20 115/63 94 L 08/24/18 07:52 08/24/18 07:52 08/24/18 07:52 08/24/18 07:52 08/24/18 07:52 - Medications Medications: Current Medications Albuterol/Ipratropium (Duoneb 3 Mg/0.5 Mg (3 Ml) Ud) 3 ml INH RQ6 [facility] Last Admin: 08/24/18 08:17 Dose: 3 ml Enoxaparin Sodium (Lovenox) 40 mg SC DAILY@2100 [facility]; Protocol Last Admin: 08/23/18 21:17 Dose: 40 mg Guaifenesin/Dextromethorphan (Mucinex-Dm 600-30 Mg) 2 tab PO BID [facility] Last Admin: 08/24/18 08:50 Dose: 2 tab Levofloxacin/Dextrose (Levaquin 500mg) 500 mg in 100 mls @ 100 mls/hr IVPB DAILY@2100 [facility]; Protocol Last Admin: 08/23/18 21:19 Dose: 100 mls/hr Methylprednisolone (Solu-Medrol) 40 mg IV Q8 [facility] Last Admin: 08/24/18 08:50 Dose: 40 mg Promethazine HCl/Dextromethorphan (Phenergan Dm Syrup) 10 ml PO Q4 PRN PRN Reason: Cough Last Admin: 08/24/18 08:50 Dose: 10 ml Fluticasone/Salmeterol (Advair Diskus 250/50) 1 puff IH Q12 [facility] Last Admin: 08/24/18 08:50 Dose: 1 puff Zolpidem Tartrate (Ambien) 5 mg PO HS PRN PRN Reason: Insomnia Last Admin: 08/24/18 00:04 Dose: 5 mg - Labs Labs: 08/21/18 14:20 08/21/18 14:20 - Constitutional Appears: In Acute Distress - Head Exam Head Exam: ATRAUMATIC, NORMAL INSPECTION, NORMOCEPHALIC - Eye Exam Eye Exam: EOMI, Normal appearance, PERRL Pupil Exam: NORMAL ACCOMODATION, PERRL - ENT Exam ENT Exam: Mucous Membranes Moist, Normal Exam - Neck Exam Neck Exam: Full ROM, Normal Inspection. absent: Lymphadenopathy - Respiratory Exam Respiratory Exam: Decreased Breath Sounds, Prolonged Expiratory Phase, Rales, Wheezes, NORMAL BREATHING PATTERN - Cardiovascular Exam Cardiovascular Exam: REGULAR RHYTHM, +S1, +S2. absent: Murmur - GI/Abdominal Exam GI & Abdominal Exam: Soft, Normal Bowel Sounds. absent: Tenderness - Rectal Exam Rectal Exam: NORMAL INSPECTION - Extremities Exam Extremities Exam: Full ROM, Normal Capillary Refill, Normal Inspection. absent: Joint Swelling, Pedal Edema - Back Exam Back Exam: NORMAL INSPECTION - Neurological Exam Neurological Exam: Alert, Awake, CN II-XII Intact, Normal Gait, Oriented x3 - Psychiatric Exam Psychiatric exam: Normal Affect, Normal Mood - Skin Skin Exam: Dry, Intact, Normal Color, Warm Assessment and Plan - Assessment and Plan (Free Text) Assessment: COPD EXAC MUCUS PLUGGING OF AIRWAYS Plan: CHEST PT CONTINUE CURRENT RX
[2018-08-24] MEDS: Enoxaparin 40 mg Syringe SC SCH (21:20)
[2018-08-24] MEDS: levoFLOXacin 500 mg in D5W 500 MG/100 ML BAG IVPB SCH (21:21)
[2018-08-25] MEDS: MethylPREDNISolone 40 mg Vial IV SCH ×2 (00:33→09:17)
[2018-08-25] MEDS: Albuterol-Ipratrop 3 mg / 0.5 (3 ml) UD INH SCH ×2 (01:07→07:26)
[2018-08-25 05:05] VITALS: RESP 18
[2018-08-25 08:14] VITALS: BP 118/64; PULSE 81; TEMP 98.1; O2SAT 97
[2018-08-25] MEDS: Fluticasone-Salmeterol 250-50mcg Diskus IH SCH (09:16)
[2018-08-25] MEDS: guaiFENesin-DM 600-30 mg ER Tab PO SCH (09:17)
[2018-08-25] MEDS: Promethazine DM 12.5 mg-30 mg/10 ml Syrup PO PRN (09:21)
--- NOTE | 2018-08-25 11:56 | CP.PCM.DIS ---
Provider - Provider Date of Admission: 08/23/18 08:49 Attending physician: Negro Chou MD Consults: 08/21/18 18:18 Case Management Referral Routine Comment: Physician Instructions: Reason For Exam: Reason for Referral: Discharge Planning Time Spent in preparation of Discharge (in minutes): 30 Diagnosis - Discharge Diagnosis (1) COPD exacerbation Status: Acute (2) Bronchitis Status: Acute (3) DVT prophylaxis Status: Acute Hospital Course - Lab Results Lab Results: Micro Results 08/21/18 14:20 Blood Blood Culture - Preliminary NO GROWTH AFTER 3 DAYS Most Recent Lab Values WBC 14.6 K/uL (4.8-10.8) H 08/21/18 14:20 RBC 5.14 Mil/uL (3.80-5.20) 08/21/18 14:20 Hgb 15.0 g/dL (12.0-16.0) D 08/21/18 14:20 Hct 46.3 % (34.0-47.0) 08/21/18 14:20 MCV 90.1 fl (81.0-99.0) D 08/21/18 14:20 MCH 29.1 pg (27.0-31.0) 08/21/18 14:20 MCHC 32.3 g/dL (33.0-37.0) L 08/21/18 14:20 RDW 14.6 % (11.5-14.5) H 08/21/18 14:20 Plt Count 295 K/uL (130-400) 08/21/18 14:20 MPV 6.9 fl (7.2-11.7) L 08/21/18 14:20 Neut % (Auto) 79.4 % (50.0-75.0) H 08/21/18 14:20 Lymph % (Auto) 12.0 % (20.0-40.0) L 08/21/18 14:20 [place] % (Auto) 6.7 % (0.0-10.0) 08/21/18 14:20 Eos % (Auto) 1.6 % (0.0-4.0) 08/21/18 14:20 Baso % (Auto) 0.3 % (0.0-2.0) 08/21/18 14:20 Neut # (Auto) 11.6 K/uL (1.8-7.0) H 08/21/18 14:20 Lymph # (Auto) 1.8 K/uL (1.0-4.3) 08/21/18 14:20 [place] # (Auto) 1.0 K/uL (0.0-0.8) H 08/21/18 14:20 Eos # (Auto) 0.2 K/uL (0.0-0.7) 08/21/18 14:20 Baso # (Auto) 0.0 K/uL (0.0-0.2) 08/21/18 14:20 pO2 22 mm/Hg (30-55) L 08/21/18 13:53 VBG pH 7.39 (7.32-7.43) 08/21/18 13:53 VBG pCO2 64 mmHg (40-60) H 08/21/18 13:53 VBG HCO3 31.0 mmol/L 08/21/18 13:53 VBG Total CO2 40.7 mmol/L (22-28) H 08/21/18 13:53 VBG O2 Sat (Calc) 34.9 % (40-65) L 08/21/18 13:53 VBG Base Excess 10.5 mmol/L (0.0-2.0) H 08/21/18 13:53 VBG Potassium 3.3 mmol/L (3.6-5.2) L 08/21/18 13:53 Sodium 138.0 mmol/L (132-148) 08/21/18 13:53 Chloride 101.0 mmol/L (98-107) 08/21/18 13:53 Glucose 105 mg/dL (65-105) 08/21/18 13:53 Lactate 1.3 mmol/L (0.7-2.1) 08/21/18 13:53 FiO2 21.0 % 08/21/18 13:53 Sodium 140 mmol/l (132-148) 08/21/18 14:20 Potassium 3.5 MMOL/L (3.6-5.0) L 08/21/18 14:20 Chloride 98 mmol/L (98-107) 08/21/18 14:20 Carbon Dioxide 36 mmol/L (22-30) H 08/21/18 14:20 Anion Gap 10 (10-20) 08/21/18 14:20 BUN 16 mg/dl (7-17) 08/21/18 14:20 Creatinine 0.5 mg/dl (0.7-1.2) L 08/21/18 14:20 Est GFR ( Amer) > 60 08/21/18 14:20 Est GFR (Non-Af Amer) > 60 08/21/18 14:20 Random Glucose 109 mg/dL (65-105) H 08/21/18 14:20 Calcium 9.9 mg/dL (8.4-10.2) 08/21/18 14:20 Total Bilirubin 0.5 mg/dl (0.2-1.3) 08/21/18 14:20 AST 21 U/L (14-36) 08/21/18 14:20 ALT 33 U/L (9-52) 08/21/18 14:20 Alkaline Phosphatase 80 U/L (38-126) 08/21/18 14:20 Total Protein 7.1 G/DL (6.3-8.2) 08/21/18 14:20 Albumin 3.9 g/dL (3.5-5.0) 08/21/18 14:20 Globulin 3.1 gm/dL (2.2-3.9) 08/21/18 14:20 Albumin/Globulin Ratio 1.3 (1.0-2.1) 08/21/18 14:20 Venous Blood Potassium 3.3 mmol/L (3.6-5.2) L 08/21/18 13:53 Influenza Typ A,B (EIA) Negative for flu a/b (NEGATIVE) 08/21/18 14:20 - Hospital Course Hospital Course: SOB IMPROVED MILD COUGH PERSISTS Discharge Exam - Head Exam Head Exam: ATRAUMATIC, NORMAL INSPECTION, NORMOCEPHALIC - Eye Exam Eye Exam: EOMI, Normal appearance, PERRL Pupil Exam: NORMAL ACCOMODATION, PERRL - Respiratory Exam Respiratory Exam: Prolonged Expiratory Phase, Wheezes - GI/Abdominal Exam GI & Abdominal Exam: Normal Bowel Sounds - Rectal Exam Rectal Exam: NORMAL INSPECTION - Neurological Exam Neurological exam: Alert, CN II-XII Intact, Normal Gait, Oriented x3, Reflexes Normal - Psychiatric Exam Psychiatric exam: Normal Affect, Normal Mood - Skin Skin Exam: Dry, Intact, Normal Color, Warm Discharge Plan - Follow Up Plan Condition: FAIR Disposition: HOME/ ROUTINE Additional Instructions: DISCHARGE TODAY FOLLOW UP WITH DR CHOU IN 1 WEEK
--- NOTE | 2018-09-05 09:06 | PQF ---
PROVIDER RESPONSE TEXT: NO EVIDENCE OF ATRIAL FIBRILLATION REVIEWER QUERY TEXT: Atrial Fibrillation Type PLEASE CLARIFY TYPE OF ATRIAL FIBRILLATION? Atrial fibrillation is documented in the Medical Record. Please specify the type Such as: -- Chronic -- Paroxysmal -- Permanent -- Persistent -- Other, please specify The patient's Clinical Indicators include: EMERGENCY ROOM DOCUMENTATION RECENT D/C WITH ATRIAL FIBRILLATION PMH: ATRIAL FIBRILLATION Query created by: Kemi Ritter on 08/31/2018 11:15 AM Electronically signed by: Negro Solis MD 09/05/2018 9:04 AM
== END 2018-08-25 14:31 | disposition home or self-care (01) | DRG 192 ==
LOC: H.ER 13:15 → H.ERHOLD 15:25 → H.TEL 17:20 → OBSVTOIN 08-23 08:49
PROVIDERS: ADMIT Internal Medicine Pulmonary Disease; ATTEND Internal Medicine Pulmonary Disease
DX: J44.1 Chronic obstructive pulmonary disease with (acute) exacerbation (principal); T17.990A Other foreign object in respiratory tract, part unspecified in causing asphyxiation, initial encounter; T38.0X5A Adverse effect of glucocorticoids and synthetic analogues, initial encounter; D72.828 Other elevated white blood cell count; E78.00 Pure hypercholesterolemia, unspecified; E78.5 Hyperlipidemia, unspecified; Z87.891 Personal history of nicotine dependence; Z90.49 Acquired absence of other specified parts of digestive tract; R00.0 Tachycardia, unspecified; Z79.899 Other long term (current) drug therapy

== ENCOUNTER 2018-09-01 21:09 | Inpatient (IN) | payer MEDICARE, OTHER ==
[2018-09-01 21:09] VITALS: BMI 23.0
[2018-09-01] MEDS ORDERED: Magnesium Sulfate 2 gm/50 ml 2 GM/50 ML BAG IV STA (21:18)
[2018-09-01] MEDS ORDERED: Albuterol-Ipratrop 3 mg / 0.5 (3 ml) UD INH STA (21:18)
[2018-09-01] MEDS ORDERED: Albuterol-Ipratrop 3 mg / 0.5 (3 ml) UD ONE ×2 (21:23→21:24)
[2018-09-01] MEDS ORDERED: Magnesium Sulfate 2 gm/50 ml 2 GM/50 ML BAG ONE (21:39)
[2018-09-01 22:01] LABS: BASO # 0.1 K/uL (0.0-0.2); BASO % 0.6 % (0.0-2.0); EOS # 0.1 K/uL (0.0-0.7); EOS % 0.8 % (0.0-4.0); HEMOGLOBIN 14.5 g/dL (12.0-16.0); LYMPH # 3.6 K/uL (1.0-4.3); MEAN CELL VOLUME 89.8 fl (81.0-99.0); MEAN CORPUSCULAR HEMOGLOBIN 28.7 pg (27.0-31.0); MEAN PLATELET VOLUME 7.2 fl (7.2-11.7); MONO # 0.9 K/uL (0.0-0.8); MONO % 4.8 % (0.0-10.0); NEUT # 13.2 K/uL (1.8-7.0); NEUT % 73.8 % (50.0-75.0); NRBC % 0.1 % (0.0-0.0); RBC 5.04 Mil/uL (3.80-5.20); RED CELL DISTRIBUTION WIDTH 15.5 % (11.5-14.5); WHITE BLOOD COUNT 17.8 K/uL (4.8-10.8)
[2018-09-01 22:20] LABS: ALB/GLOB RATIO 1.3 (1.0-2.1); ALBUMIN 3.8 g/dL (3.5-5.0); ALT/SGPT 25 U/L (9-52); AST/SGOT 19 U/L (14-36); BLOOD UREA NITROGEN 29 mg/dl (7-17); CALCIUM 9.2 mg/dL (8.4-10.2); GFR NON-AFRICAN AMERICAN > 60
--- NOTE | 2018-09-01 22:22 | ED PDOC ---
HPI: SOB/CHF/COPD Time Seen by Provider: 09/01/18 21:16 Chief Complaint (Nursing): Respiratory Distress Chief Complaint (Provider): Chest pain and shortness of breath History Per: Patient History/Exam Limitations: no limitations Onset/Duration Of Symptoms: Hrs (x1) Current Symptoms Are (Timing): Still Present Associated Symptoms: Chest Pain, Other (dry cough) Additional Complaint(s): Sara Cartagena is a 68 year old female, with a past medical history of COPD and recent admission to the hospital, who was brought to the emergency department by ALS complaining of shortness of breath associated with chest pain onset x2 hrs ago. Paramedics state patient was given Solumedrol and Duoneb in field. Patient describes pain as non-radiating and located in the mid chest. Patient reports using nebulizer with no relief of symptoms. She also reports a dry cough but denies any fever, chills, nausea, vomit or other medical complaints. PMD: Negro Solis I Past Medical History Reviewed: Historical Data, Nursing Documentation, Vital Signs Vital Signs: Last Vital Signs Temp 100 F H 09/01/18 21:12 Pulse 105 H 09/01/18 21:12 Resp 23 09/01/18 21:30 BP 156/73 H 09/01/18 21:12 Pulse Ox 88 L 09/01/18 21:30 - Medical History PMH: Asthma, Atrial Fibrillation, Bronchitis, COPD, Hypercholesterolemia Denies: HIV, Chronic Kidney Disease - Surgical History Surgical History: Appendectomy - Family History Family History: States: Unknown Family Hx - Social History Current smoker - smoking cessation education provided: No Alcohol: None Drugs: Denies - Home Medications Home Medications: Ambulatory Orders Medication Instructions Recorded RX: Albuterol Sulfate [Ventolin 2 puff IH Q6 PRN 03/21/18 Hfa] RX: Fluticasone/Salmeterol [Advair 1 puff IH Q12 03/21/18 250-50 Diskus] RX: Calcium Carbonate/Vitamin D3 1 tab PO DAILY 08/21/18 [Calcium 600 + Vit D Tablet] RX: Promethazine DM [Phenergan DM 10 ml PO Q6 PRN 08/21/18 Syrup] RX: Tiotropium [Spiriva] 18 mcg IH DAILY 08/21/18 Azithromycin [Zithromax Tri-Kenji] 500 mg PO DAILY #1 tablet 08/25/18 Benzonatate [Tessalon Perles] 100 mg PO TID #40 sgl 08/25/18 Methylprednisolone [Medrol Dose 4 mg PO ASDIR #21 mg 08/25/18 Pack (21 tabs)] - Allergies Allergies/Adverse Reactions: Allergies Allergy/AdvReac Type Severity Reaction Status Date / Time No Known Allergies Allergy Verified 08/21/18 13:41 Review of Systems ROS Statement: Except As Marked, All Systems Reviewed And Found Negative Constitutional: Negative for: Fever, Chills Cardiovascular: Positive for: Chest Pain (mid chest, nonradiating) Respiratory: Positive for: Cough (dry), Shortness of Breath Gastrointestinal: Negative for: Nausea, Vomiting Physical Exam - Reviewed Nursing Documentation Reviewed: Yes Vital Signs Reviewed: Yes - Physical Exam Appears: Positive for: In Acute Distress (mild respiratory distress) Head Exam: Positive for: ATRAUMATIC, NORMAL INSPECTION, NORMOCEPHALIC Skin: Positive for: Normal Color, Warm, Dry Eye Exam: Positive for: Normal appearance, EOMI, PERRL Neck: Positive for: Normal, Painless ROM, Supple Cardiovascular/Chest: Positive for: Regular Rate, Rhythm. Negative for: Murmur Respiratory: Positive for: Wheezing (bilateral expiratory ), Respiratory Distress (mild) Gastrointestinal/Abdominal: Positive for: Normal Exam, Soft. Negative for: Tenderness, Guarding Back: Positive for: Normal Inspection. Negative for: L CVA Tenderness, R CVA Tenderness, Vertebral Tenderness Extremity: Positive for: Normal ROM (upper and lower extremities). Negative for: Deformity, Swelling Neurologic/Psych: Positive for: Alert, Oriented. Negative for: Motor/Sensory Deficits - Laboratory Results Result Diagrams: 09/01/18 21:40 09/01/18 21:40 - ECG O2 Sat by Pulse Oximetry: 88 (RA) Pulse Ox Interpretation: Abnormal - Critical Care Total Time (In Min): 30 Documented Critical Care: Time excludes all time spent performint seperately billable procedures Medical Decision Making Medical Decision Making: Time: 21:16 Initial Impression: 68 y/o female with chest pain in setting of known COPD. Initial Plan: --EKG --CMP --Lact Acid --Magnesium --B-Type Natriuretic Peptide --Troponin I --Urine dipstick --Chest portable [RAD] --Duoneb 6 ml INH --Magnesium sulfate 2 gm in 50ml IV --Blood culture --Influenza --Urinalysis --Reevaluation Scribe Attestation: Documented by Jack Morales, acting as a scribe for Moo Espinal MD Provider Scribe Attestation: All medical record entries made by the Scribe were at my direction and personally dictated by me. I have reviewed the chart and agree that the record accurately reflects my personal performance of the history, physical exam, medical decision making, and the department course for this patient. I have also personally directed, reviewed, and agree with the discharge instructions and disposition. Time: 2306 -- Labs reviewed and demonstrate no clinically significant abnormality. Labs do demonstrate leukocytosis on CBC, like related to steroids. Case discussed with Dr. Solis who would like patient to be hospitalized and requests for CT Chest. -- CT Angio Chest for chest pain to rule out PE ordered. Scribe Attestation: Documented by Vanessa Jennings, acting as a scribe for Moo Espinal MD. Provider Scribe Attestation: All medical record entries made by the Scribe were at my direction and personally dictated by me. I have reviewed the chart and agree that the record accurately reflects my personal performance of the history, physical exam, medical decision making, and the department course for this patient. I have also personally directed, reviewed, and agree with the discharge instructions and disposition. Disposition - Clinical Impression Clinical Impression: COPD exacerbation - Patient ED Disposition Is Patient to be Admitted: Yes Discussed With DrFederico: Negro Solis Doctor Will See Patient In The: Hospital Counseled Patient/Family Regarding: Studies Performed, Diagnosis - Disposition Disposition Time: 23:06 Condition: FAIR - Pt Status Changed To: Hospital Disposition Of: Observation
[2018-09-01 22:24] LABS: B-TYPE NATRIURETIC PEPTIDE 87.4 pg/ml (0-900)
[2018-09-01] MEDS ORDERED: Sodium Chloride 3% for Inhalation 4 ML VIAL.NEB IH PRN (23:46)
[2018-09-02] MEDS ORDERED: Iodixanol 320 MG/ML 100 ML BOTTLE IV ONE (00:13)
[2018-09-02] MEDS ORDERED: Sodium Chloride 0.9% 50 ML IV ONE (00:13)
[2018-09-02] MEDS ORDERED: methylPREDNISolone 80 MG in Sodium Chloride 0.9% 50 ML IVPB SCH (01:00)
[2018-09-02] MEDS ORDERED: Aminophylline 500 MG in Sodium Chloride 0.9% 500 ML IV SCH (01:15)
[2018-09-02] MEDS: Aminophylline 500 MG in Sodium Chloride 0.9% 500 ML IV SCH (02:35)
[2018-09-02 07:15] LABS: LYMPH # 0.5 K/uL (1.0-4.3); LYMPH % 3.5 % (20.0-40.0); MEAN CELL VOLUME 89.2 fl (81.0-99.0); MEAN CORPUSCULAR HEMOGLOBIN 29.2 pg (27.0-31.0); MEAN CORPUSCULAR HGB CONC 32.7 g/dL (33.0-37.0); MEAN PLATELET VOLUME 7.1 fl (7.2-11.7); MONO # 0.1 K/uL (0.0-0.8); MONO % 0.7 % (0.0-10.0); NEUT % 95.8 % (50.0-75.0); PLATELET COUNT 194 K/uL (130-400); RBC 4.44 Mil/uL (3.80-5.20); RED CELL DISTRIBUTION WIDTH 15.2 % (11.5-14.5); WHITE BLOOD COUNT 14.6 K/uL (4.8-10.8)
[2018-09-02 07:38] LABS: ALB/GLOB RATIO 1.2 (1.0-2.1); ALBUMIN 3.3 g/dL (3.5-5.0); ALT/SGPT 20 U/L (9-52); AST/SGOT 16 U/L (14-36); BLOOD UREA NITROGEN 23 mg/dl (7-17); CALCIUM 8.3 mg/dL (8.4-10.2); GFR NON-AFRICAN AMERICAN > 60
[2018-09-02] MEDS: Albuterol-Ipratrop 3 mg / 0.5 (3 ml) UD INH SCH ×5 (08:05→23:29)
[2018-09-02] MEDS: Enoxaparin 40 mg Syringe SC SCH (09:14)
--- NOTE | 2018-09-02 10:33 | RAD ---
Date of service: 09/01/2018 HISTORY: chest pain COMPARISON: Chest radiograph dated 08/21/2018. FINDINGS: LUNGS: No active pulmonary disease. PLEURA: No significant pleural effusion identified, no pneumothorax apparent. CARDIOVASCULAR: Aortic atherosclerotic calcifications. Cardiomediastinal silhouette within normal limits. OSSEOUS STRUCTURES: Unchanged. VISUALIZED UPPER ABDOMEN: Normal. OTHER FINDINGS: None. IMPRESSION: No active disease.
[2018-09-02 10:35] LABS: LYMPHOCYTE 2 % (20-50); MONOCYTE 1 % (0-10); NEUTROPHIL 97 % (42-75); TOTAL CELLS COUNTED 100
[2018-09-02 10:36] LABS: ANISOCYTOSIS SLIGHT; PLATELET ESTIMATE NORMAL (NORMAL)
--- NOTE | 2018-09-02 10:44 | CT ---
Date of service: 09/02/2018 PROCEDURE: CT Chest with contrast (Pulmonary Angiogram) HISTORY: chest pain r/o PE COMPARISON: Correlations made to CT scan of the chest dated 03/22/2018. TECHNIQUE: Axial computed tomography images were obtained of the chest in the pulmonary arterial phase of enhancement. Coronal and sagittal reformatted images were created and reviewed. Intravenous contrast dose: 98 mL Visipaque 270 Radiation dose: Total exam DLP = 292.97 mGy-cm. This CT exam was performed using one or more of the following dose reduction techniques: Automated exposure control, adjustment of the mA and/or kV according to patient size, and/or use of iterative reconstruction technique. FINDINGS: PULMONARY ARTERIES: Unremarkable. No pulmonary embolism. AORTA: No acute findings. No thoracic aortic aneurysm. No aortic atherosclerotic calcification or mural plaque present. LUNGS: Small patchy ground-glass opacities in the left lower lobe. Diffuse emphysema. PLEURAL SPACES: Unremarkable. No effusion or pneumothorax. HEART: Unremarkable. No cardiomegaly. No significant pericardial effusion. LYMPH NODES: No lymphadenopathy. BONES, CHEST WALL: Unremarkable. No fracture or destructive lesion OTHER FINDINGS: Small hypodense right thyroid nodule. Too small to characterize 7 mm right hepatic dome hypodensity. IMPRESSION: Unremarkable CT pulmonary angiogram. No pulmonary embolus. Small patchy ground-glass opacity in the left lower lobe, likely infectious/inflammatory in etiology. Small hypodense right thyroid nodule for which dedicated thyroid ultrasound can be obtained for further characterization as clinically warranted.
--- NOTE | 2018-09-02 11:32 | CP.PCM.HP ---
History of Present Illness - History of Present Illness History of Present Illness: 68 YR OLD FEMALE ADMITTED BECAUSE OF COUGH,PLEURITIC CHEST PAINS AND PROGRESSIVELY WORSENING SHORTNESS OF BREATH X SEVERAL WEEKS[WORSE ON THE DAY OF ADMISSION].SHE WAS RECENTLY D/EDGARD FROM HOSPITAL AFTER THERAPY FOR COPD EXACERBATION.SHE HOWEVER FAILED OUTPATIENT TREATMENT.SHE DENIES SPUTUM PRODUCTION OR FEVER BUT ADMITS TO R PLEURITIC CHEST PAINS. HX OF COPD DUE TO FORMER CIGARETTE SMOKING Present on Admission - Present on Admission Any Indicators Present on Admission: No Past Patient History - Infectious Disease Hx of Infectious Diseases: None - Tetanus Immunizations Tetanus Immunization: Unknown - Past Medical History & Family History Past Medical History?: Yes - Past Social History Alcohol: None Drugs: Denies - CARDIAC Hx Atrial Fibrillation: Yes Hx Hypercholesterolemia: Yes - PULMONARY Hx Asthma: Yes Hx Bronchitis: Yes Hx Chronic Obstructive Pulmonary Disease (COPD): Yes - NEUROLOGICAL Hx Neurological Disorder: No - HEENT Hx HEENT Problems: No - RENAL Hx Chronic Kidney Disease: No - ENDOCRINE/METABOLIC Hx Endocrine Disorders: No - HEMATOLOGICAL/ONCOLOGICAL Hx Human Immunodeficiency Virus (HIV): No - INTEGUMENTARY Hx Dermatological Problems: No - MUSCULOSKELETAL/RHEUMATOLOGICAL Hx Musculoskeletal Disorders: No Hx Falls: No - GASTROINTESTINAL Hx Gastrointestinal Disorders: No - GENITOURINARY/GYNECOLOGICAL Hx Genitourinary Disorders: No - PSYCHIATRIC Hx Psychophysiologic Disorder: No Hx Substance Use: No - SURGICAL HISTORY Hx Appendectomy: Yes - ANESTHESIA Hx Anesthesia: Yes Hx Anesthesia Reactions: No Hx Malignant Hyperthermia: No Meds Allergies/Adverse Reactions: Allergies Allergy/AdvReac Type Severity Reaction Status Date / Time No Known Allergies Allergy Verified 08/21/18 13:41 Physical Exam - Constitutional Appears: In Acute Distress - Head Exam Head Exam: ATRAUMATIC, NORMAL INSPECTION, NORMOCEPHALIC - Eye Exam Eye Exam: EOMI, Normal appearance, PERRL Pupil Exam: NORMAL ACCOMODATION, PERRL - ENT Exam ENT Exam: Mucous Membranes Moist, Normal Exam - Neck Exam Neck exam: Positive for: Normal Inspection - Respiratory Exam Respiratory Exam: Chest Wall Tenderness, Decreased Breath Sounds, Prolonged Expiratory Phase, Rales, Wheezes, NORMAL BREATHING PATTERN - Cardiovascular Exam Cardiovascular Exam: Tachycardia, REGULAR RHYTHM - GI/Abdominal Exam GI & Abdominal Exam: Normal Bowel Sounds, Soft. absent: Tenderness - Rectal Exam Rectal Exam: NORMAL INSPECTION - Extremities Exam Extremities exam: Positive for: normal inspection - Back Exam Back exam: NORMAL INSPECTION - Neurological Exam Neurological exam: Alert, CN II-XII Intact, Normal Gait, Oriented x3, Reflexes Normal - Psychiatric Exam Psychiatric exam: Anxious, Normal Mood - Skin Skin Exam: Dry, Intact, Normal Color, Warm Results - Vital Signs Recent Vital Signs: Last Vital Signs Temp 97.9 F 09/02/18 08:00 Pulse 80 09/02/18 08:05 Resp 18 09/02/18 08:00 BP 116/67 09/02/18 08:00 Pulse Ox 91 L 09/02/18 08:00 - Labs Result Diagrams: 09/02/18 06:45 09/02/18 06:45 Labs: Laboratory Results - last 24 hr 09/01/18 09/01/18 09/01/18 21:40 21:40 21:40 WBC 17.8 H RBC 5.04 Hgb 14.5 Hct 45.3 MCV 89.8 MCH 28.7 MCHC 32.0 L RDW 15.5 H Plt Count 242 MPV 7.2 Neut % (Auto) 73.8 Lymph % (Auto) 20.0 [place] % (Auto) 4.8 Eos % (Auto) 0.8 Baso % (Auto) 0.6 Neut # (Auto) 13.2 H Lymph # (Auto) 3.6 [place] # (Auto) 0.9 H Eos # (Auto) 0.1 Baso # (Auto) 0.1 Neutrophils % (Manual) Lymphocytes % (Manual) Monocytes % (Manual) Platelet Estimate Anisocytosis (manual) Sodium 141 Potassium 4.0 Chloride 98 Carbon Dioxide 34 H Anion Gap 13 BUN 29 H Creatinine 0.5 L Est GFR ( Amer) > 60 Est GFR (Non-Af Amer) > 60 Random Glucose 125 H Lactic Acid Calcium 9.2 Magnesium 1.9 Total Bilirubin 0.5 AST 19 ALT 25 Alkaline Phosphatase 75 Troponin I 0.0320 NT-Pro-B Natriuret Pep 87.4 Total Protein 6.8 Albumin 3.8 Globulin 3.0 Albumin/Globulin Ratio 1.3 Influenza Typ A,B (EIA) Negative for flu a/b 09/01/18 09/02/18 09/02/18 21:40 06:45 06:45 WBC 14.6 H RBC 4.44 Hgb 13.0 Hct 39.6 MCV 89.2 MCH 29.2 MCHC 32.7 L RDW 15.2 H Plt Count 194 MPV 7.1 L Neut % (Auto) 95.8 H Lymph % (Auto) 3.5 L [place] % (Auto) 0.7 Eos % (Auto) 0.0 Baso % (Auto) 0.0 Neut # (Auto) 14.0 H Lymph # (Auto) 0.5 L [place] # (Auto) 0.1 Eos # (Auto) 0.0 Baso # (Auto) 0.0 Neutrophils % (Manual) 97 H Lymphocytes % (Manual) 2 L Monocytes % (Manual) 1 Platelet Estimate Normal Anisocytosis (manual) Slight Sodium 138 Potassium 4.2 Chloride 99 Carbon Dioxide 29 Anion Gap 14 BUN 23 H Creatinine 0.4 L Est GFR ( Amer) > 60 Est GFR (Non-Af Amer) > 60 Random Glucose 206 H Lactic Acid 1.2 Calcium 8.3 L Magnesium Total Bilirubin 0.5 AST 16 ALT 20 Alkaline Phosphatase 59 Troponin I NT-Pro-B Natriuret Pep Total Protein 5.9 L Albumin 3.3 L Globulin 2.6 Albumin/Globulin Ratio 1.2 Influenza Typ A,B (EIA) Assessment & Plan - Assessment and Plan (Free Text) Assessment: ACUTE EXAC OF COPD--FAILURE OF OUT PATIENT THERAPY CHEST PAIN--PROBABLY PLEURITIC--R/O CORONARY ARTERY DZ URI ANXIETY Plan: CONTINUE RX ORDERED ADD AMINOPHYLLINE TO RX CARDIOLOGY EVAL TO R/O ASHD
--- NOTE | 2018-09-02 13:59 | US ---
Date of service: 09/02/2018 HISTORY: THYROID NODULE TECHNIQUE: Sonographic evaluation of the thyroid gland. COMPARISON: None. FINDINGS: RIGHT LOBE: Measures 6.1 x 2.1 x 2.3 cm. Normal echotexture and flow. Nodules: 1. R1: Isoechoic lateral lower pole nodule measuring 1.6 x 1.2 x 1.2 cm 2. R2: Hypoechoic anterior midpole nodule measuring 0.3 x 0.2 x 0.2 cm LEFT LOBE: Measures 5.4 x 1.6 x 2.3 cm. Normal echotexture and flow. Nodules: 1. L1: Lateral lower pole hypoechoic nodule measuring 2.2 x 1.7 x 1.2 cm 2. L2: Anterolateral midpole isoechoic nodule measuring 0.7 x 0.6 x 1.0 cm ISTHMUS: Measures 0.4 cm. Normal echotexture and flow. Nodules: None OTHER FINDINGS: None . IMPRESSION: Bilateral thyroid nodules as above described. R1 and L1 nodules are prominent/enlarged, measuring 1.6 cm and 2.2 cm, respectively.
[2018-09-02] MEDS: Fluticasone-Salmeterol 250-50mcg Diskus IH SCH ×2 (16:36→21:12)
--- NOTE | 2018-09-02 23:58 | CARD ---
APPROVED REPORT Date of service: 09/01/2018 EKG Measurement Heart [id number] <Conclusion> Sinus tachycardia Poor R wave progression Abnormal ECG
[2018-09-03] MEDS: Aminophylline 500 MG in Sodium Chloride 0.9% 500 ML IV SCH (02:30)
[2018-09-03] MEDS: Albuterol-Ipratrop 3 mg / 0.5 (3 ml) UD INH SCH ×6 (04:06→23:11)
--- NOTE | 2018-09-03 08:38 | CP.PCM.PN ---
Subjective - Date & Time of Evaluation Date of Evaluation: 09/03/18 Time of Evaluation: 08:38 - Subjective Subjective: SOB IMPROVING C/O PERSISTENT COUGH CHEST PAIN IMPROVED Objective - Vital Signs/Intake and Output Vital Signs (last 24 hours): Temp Pulse Resp BP Pulse Ox 98.2 F 93 H 20 131/67 94 L 09/03/18 07:49 09/03/18 07:49 09/03/18 07:49 09/03/18 07:49 09/03/18 07:49 - Medications Medications: Current Medications Albuterol/Ipratropium (Duoneb 3 Mg/0.5 Mg (3 Ml) Ud) 3 ml INH RQ4 [facility] Last Admin: 09/03/18 07:30 Dose: 3 ml Aspirin (Aspirin Chewable) 81 mg PO DAILY [facility] Last Admin: 09/02/18 16:42 Dose: 81 mg Enoxaparin Sodium (Lovenox) 40 mg SC DAILY [facility]; Protocol Last Admin: 09/02/18 09:14 Dose: 40 mg Aminophylline 500 mg/ Sodium (Chloride) 520 mls @ 18.4 mls/hr IV .Q24H [facility] Last Admin: 09/03/18 02:30 Dose: Not Given Ceftriaxone Sodium 1 gm/ (Sodium Chloride) 100 mls @ 100 mls/hr IVPB DAILY@2200 [facility]; Protocol Last Admin: 09/02/18 21:13 Dose: 100 mls/hr Methylprednisolone (Solu-Medrol) 80 mg IV Q8 [facility] Last Admin: 09/03/18 00:54 Dose: 80 mg Promethazine HCl/Codeine (Phenergan/Codeine Oral Syrup) 10 ml PO Q4 PRN PRN Reason: Cough Fluticasone/Salmeterol (Advair Diskus 250/50) 1 puff IH Q12 [facility] Last Admin: 09/02/18 21:12 Dose: 1 puff - Labs Labs: 09/02/18 06:45 09/02/18 06:45 - Constitutional Appears: Chronically Ill - Head Exam Head Exam: ATRAUMATIC, NORMAL INSPECTION, NORMOCEPHALIC - Eye Exam Eye Exam: EOMI, Normal appearance, PERRL Pupil Exam: NORMAL ACCOMODATION, PERRL - ENT Exam ENT Exam: Mucous Membranes Moist, Normal Exam - Neck Exam Neck Exam: Full ROM, Normal Inspection. absent: Lymphadenopathy - Respiratory Exam Respiratory Exam: Chest Wall Tenderness, Decreased Breath Sounds, Prolonged Expiratory Phase, Rales, Wheezes - Cardiovascular Exam Cardiovascular Exam: REGULAR RHYTHM, +S1, +S2. absent: Murmur - GI/Abdominal Exam GI & Abdominal Exam: Soft, Normal Bowel Sounds. absent: Tenderness - Rectal Exam Rectal Exam: NORMAL INSPECTION - Extremities Exam Extremities Exam: Full ROM, Normal Capillary Refill, Normal Inspection. absent: Joint Swelling, Pedal Edema - Back Exam Back Exam: NORMAL INSPECTION - Neurological Exam Neurological Exam: Alert, Awake, CN II-XII Intact, Normal Gait, Oriented x3 - Psychiatric Exam Psychiatric exam: Normal Affect, Normal Mood - Skin Skin Exam: Dry, Intact, Normal Color, Warm Assessment and Plan - Assessment and Plan (Free Text) Assessment: ACUTE EXAC OF COPD URI THYROID NODULES ANXIETY CHEST PAIN Plan: CONTINUE IV AMINOPHYLLINE AND BRONCHODILATORS WILL REFER FOR BX OF THYROID NODULES OUT PT WHEN STABLE CONSIDER TRANSFER TO TCU AWAIT CARDIOLOGY EVAL
[2018-09-03] MEDS: Fluticasone-Salmeterol 250-50mcg Diskus IH SCH ×2 (08:40→21:23)
[2018-09-03] MEDS: Enoxaparin 40 mg Syringe SC SCH (08:41)
[2018-09-03] MEDS: Promethazine/Cod 6.25mg-10mg/5ml Syr UD PO PRN (09:03)
[2018-09-03 09:17] LABS: SQUAMOUS EPITHIAL < 1 /hpf (0-5); URINE BILIRUBIN NEGATIVE (NEGATIVE); URINE BLOOD NEGATIVE (NEGATIVE); URINE CLARITY CLEAR (Clear); URINE COLOR YELLOW (YELLOW); URINE GLUCOSE (UA) >=500 mg/dL (NEGATIVE); URINE LEUKOCYTE ESTERASE NEG Leu/uL (Negative); URINE PROTEIN 30 mg/dL (NEGATIVE); URINE UROBILINOGEN 0.2-1.0 mg/dL (0.2-1.0)
--- NOTE | 2018-09-03 10:03 | CP.PCM.CON ---
History of Present Illness - History of Present Illness History of Present Illness: THE PATIENT IS A 68 YEAR OLD FEMALE WITH A HISTORY OF COPD WHO WAS ADMITTED FOR COPD EXACERBATION A FEW TIMES LATELY. SHE WAS ADMITTED THIS TIME FOR SOB AND HAS HAD MUCH COUGHING. I WAS ASKED TO SEE HER AT THE PRESENT TIME BY DR CHOU FOR CHEST PAIN. SHE DESCRIBES ATYPICAL SHARP AND KNIFE-LIKE CHEST PAIN ESPECIALLY WHEN SHE COUGHS. SHE DENIES ANY HISTORY OF CAD, HYPERTENSION OR HYPERLIPIDEMIA. Past Patient History - Infectious Disease Hx of Infectious Diseases: None - Tetanus Immunizations Tetanus Immunization: Unknown - Past Medical History & Family History Past Medical History?: Yes - Past Social History Alcohol: None Drugs: Denies - CARDIAC Hx Atrial Fibrillation: Yes Hx Hypercholesterolemia: Yes - PULMONARY Hx Asthma: Yes Hx Bronchitis: Yes Hx Chronic Obstructive Pulmonary Disease (COPD): Yes - NEUROLOGICAL Hx Neurological Disorder: No - HEENT Hx HEENT Problems: No - RENAL Hx Chronic Kidney Disease: No - ENDOCRINE/METABOLIC Hx Endocrine Disorders: No - HEMATOLOGICAL/ONCOLOGICAL Hx Human Immunodeficiency Virus (HIV): No - INTEGUMENTARY Hx Dermatological Problems: No - MUSCULOSKELETAL/RHEUMATOLOGICAL Hx Musculoskeletal Disorders: No Hx Falls: No - GASTROINTESTINAL Hx Gastrointestinal Disorders: No - GENITOURINARY/GYNECOLOGICAL Hx Genitourinary Disorders: No - PSYCHIATRIC Hx Psychophysiologic Disorder: No Hx Substance Use: No - SURGICAL HISTORY Hx Appendectomy: Yes - ANESTHESIA Hx Anesthesia: Yes Hx Anesthesia Reactions: No Hx Malignant Hyperthermia: No Meds Allergies/Adverse Reactions: Allergies Allergy/AdvReac Type Severity Reaction Status Date / Time No Known Allergies Allergy Verified 08/21/18 13:41 - Medications Medications: Current Medications Albuterol/Ipratropium (Duoneb 3 Mg/0.5 Mg (3 Ml) Ud) 3 ml INH RQ4 [facility] Last Admin: 09/03/18 07:30 Dose: 3 ml Aspirin (Aspirin Chewable) 81 mg PO DAILY [facility] Last Admin: 09/03/18 08:41 Dose: 81 mg Enoxaparin Sodium (Lovenox) 40 mg SC DAILY [facility]; Protocol Last Admin: 09/03/18 08:41 Dose: 40 mg Aminophylline 500 mg/ Sodium (Chloride) 520 mls @ 18.4 mls/hr IV .Q24H [facility] Last Admin: 09/03/18 02:30 Dose: Not Given Ceftriaxone Sodium 1 gm/ (Sodium Chloride) 100 mls @ 100 mls/hr IVPB DAILY@2200 [facility]; Protocol Last Admin: 09/02/18 21:13 Dose: 100 mls/hr Methylprednisolone (Solu-Medrol) 80 mg IV Q8 [facility] Last Admin: 09/03/18 08:44 Dose: 80 mg Promethazine HCl/Codeine (Phenergan/Codeine Oral Syrup) 10 ml PO Q4 PRN PRN Reason: Cough Last Admin: 09/03/18 09:03 Dose: 10 ml Fluticasone/Salmeterol (Advair Diskus 250/50) 1 puff IH Q12 [facility] Last Admin: 09/03/18 08:40 Dose: 1 puff Physical Exam - Respiratory Exam Respiratory Exam: Decreased Breath Sounds, Wheezes - Cardiovascular Exam Cardiovascular Exam: REGULAR RHYTHM, +S1, +S2 Additional comments: RIGHT ANTERIOR CHEST WALL PALPATION REPRODUCED THE CHEST PAIN IDENTICALLY - Extremities Exam Additional comments: NO SIGNIFICANT LE EDEMA - Additional Findings Additional findings: EKG NSR TROPONINS NORMAL WBC 17.[address] REPORTS NOTED ECHO JULY 2018 SHOWED NORMAL LV FUNCTION, TRACE MR AND TRACE TR Results - Vital Signs Recent Vital Signs: Last Vital Signs Temp 98.2 F 09/03/18 07:49 Pulse 93 H 09/03/18 07:49 Resp 20 09/03/18 07:49 BP 131/67 09/03/18 07:49 Pulse Ox 94 L 09/03/18 07:49 - Labs Result Diagrams: 09/02/18 06:45 09/02/18 06:45 Labs: Laboratory Results - last 24 hr 09/02/18 09/02/18 09/03/18 06:45 12:15 08:55 Neutrophils % (Manual) 97 H Lymphocytes % (Manual) 2 L Monocytes % (Manual) 1 Platelet Estimate Normal Anisocytosis (manual) Slight Troponin I < 0.0120 Urine Color Urine Clarity Urine pH Ur Specific [place] Urine Protein Urine Glucose (UA) Urine Ketones Urine Blood Urine Nitrate Urine Bilirubin Urine Urobilinogen Ur Leukocyte Esterase Urine RBC (Auto) Urine Microscopic WBC Ur Squamous Epith Cells Theophylline 7.8 L 09/03/18 08:55 Neutrophils % (Manual) Lymphocytes % (Manual) Monocytes % (Manual) Platelet Estimate Anisocytosis (manual) Troponin I Urine Color Yellow Urine Clarity Clear Urine pH 6.0 Ur Specific [place] 1.035 H Urine Protein 30 Urine Glucose (UA) >=500 Urine Ketones Negative Urine Blood Negative Urine Nitrate Negative Urine Bilirubin Negative Urine Urobilinogen 0.2-1.0 Ur Leukocyte Esterase Neg Urine RBC (Auto) 3 Urine Microscopic WBC 1 Ur Squamous Epith Cells < 1 Theophylline Assessment & Plan - Assessment and Plan (Free Text) Assessment: COPD EXACERBATION CHEST WALL PAIN FROM COUGHING-EKG AND TROPONINS ARE NEGATIVE Plan: CONTINUE ASPIRIN, LOVENOX, ANTIBIOTICS, BRONCHODILATORS, AMINOPHYLLINE, STEROIDS THE PAIN IS CHEST WALL PAIN BUT I WOULD STILL RECOMMEND A PHARMACOLOGICAL STRESS TEST AN OUT PATIENT WHEN SHE FEELS BETTER AND IS OFF AMINOPHYLLINE
[2018-09-03] MEDS ORDERED: Aminophylline 500 MG in Sodium Chloride 0.9% 500 ML IV SCH (11:39)
[2018-09-04] MEDS: Albuterol-Ipratrop 3 mg / 0.5 (3 ml) UD INH SCH ×5 (04:54→19:54)
[2018-09-04] MEDS: Fluticasone-Salmeterol 250-50mcg Diskus IH SCH ×2 (08:07→21:04)
[2018-09-04] MEDS: Enoxaparin 40 mg Syringe SC SCH (08:08)
--- NOTE | 2018-09-04 09:14 | CP.PCM.PN ---
Subjective - Date & Time of Evaluation Date of Evaluation: 09/04/18 Time of Evaluation: 09:15 - Subjective Subjective: CLINICALLY IMPROVING COUGH AND SOB IMPROVED STILL HAS DYSPNEA ON EXERTION O2 SAT--88% AT REST Objective - Vital Signs/Intake and Output Vital Signs (last 24 hours): Temp Pulse Resp BP Pulse Ox 97.9 F 87 18 135/78 95 09/04/18 08:03 09/04/18 08:03 09/04/18 08:03 09/04/18 08:03 09/04/18 08:03 - Medications Medications: Current Medications Albuterol/Ipratropium (Duoneb 3 Mg/0.5 Mg (3 Ml) Ud) 3 ml INH RQ4 [facility] Last Admin: 09/04/18 08:13 Dose: 3 ml Aspirin (Aspirin Chewable) 81 mg PO DAILY [facility] Last Admin: 09/04/18 08:08 Dose: 81 mg Enoxaparin Sodium (Lovenox) 40 mg SC DAILY [facility]; Protocol Last Admin: 09/04/18 08:08 Dose: 40 mg Ceftriaxone Sodium 1 gm/ (Sodium Chloride) 100 mls @ 100 mls/hr IVPB DAILY@2200 [facility]; Protocol Last Admin: 09/03/18 21:24 Dose: 100 mls/hr Aminophylline 500 mg/ Sodium (Chloride) 520 mls @ 18.4 mls/hr IV .Q24H [facility] Last Admin: 09/03/18 12:14 Dose: 17 mls/hr Methylprednisolone (Solu-Medrol) 80 mg IV Q8 [facility] Last Admin: 09/04/18 08:13 Dose: 80 mg Promethazine HCl/Codeine (Phenergan/Codeine Oral Syrup) 10 ml PO Q4 PRN PRN Reason: Cough Last Admin: 09/03/18 09:03 Dose: 10 ml Fluticasone/Salmeterol (Advair Diskus 250/50) 1 puff IH Q12 [facility] Last Admin: 09/04/18 08:07 Dose: 1 puff Zolpidem Tartrate (Ambien) 5 mg PO HS [facility] Last Admin: 09/03/18 21:58 Dose: 5 mg - Labs Labs: 09/02/18 06:45 09/02/18 06:45 - Constitutional Appears: Chronically Ill - Head Exam Head Exam: ATRAUMATIC, NORMAL INSPECTION, NORMOCEPHALIC - Eye Exam Eye Exam: EOMI, Normal appearance, PERRL Pupil Exam: NORMAL ACCOMODATION, PERRL - ENT Exam ENT Exam: Mucous Membranes Moist, Normal Exam - Neck Exam Neck Exam: Full ROM, Normal Inspection. absent: Lymphadenopathy - Respiratory Exam Respiratory Exam: Decreased Breath Sounds, Wheezes, NORMAL BREATHING PATTERN - Cardiovascular Exam Cardiovascular Exam: REGULAR RHYTHM, +S1, +S2. absent: Murmur - GI/Abdominal Exam GI & Abdominal Exam: Soft, Normal Bowel Sounds. absent: Tenderness - Rectal Exam Rectal Exam: NORMAL INSPECTION - Extremities Exam Extremities Exam: Full ROM, Normal Capillary Refill, Normal Inspection. absent: Joint Swelling, Pedal Edema - Back Exam Back Exam: NORMAL INSPECTION - Neurological Exam Neurological Exam: Alert, Awake, CN II-XII Intact, Normal Gait, Oriented x3 - Psychiatric Exam Psychiatric exam: Normal Affect, Normal Mood - Skin Skin Exam: Dry, Intact, Normal Color, Warm Assessment and Plan - Assessment and Plan (Free Text) Assessment: ACUTE EXAC OF COPD CHEST PAIN MUCUS PLUGGING OF AIRWAYS URI THYROID NODULES Plan: D/C AMINOPHYLLINE DRIP BEGIN PO THEOPHYLLINE TRANSFER TO TCU WILL PROBABLY NEED STRESS TEST PRIOR TO D/C HOME--R/O ASHD
--- NOTE | 2018-09-04 11:21 | CP.PCM.PN ---
Subjective - Date & Time of Evaluation Date of Evaluation: 09/04/18 Time of Evaluation: 09:15 - Subjective Subjective: NO CHEST PAIN TODAY BREATHING BETTER BUT STILL HAS FORBES Objective - Vital Signs/Intake and Output Vital Signs (last 24 hours): Temp Pulse Resp BP Pulse Ox 97.9 F 87 18 135/78 95 09/04/18 08:03 09/04/18 09:00 09/04/18 08:03 09/04/18 08:03 09/04/18 08:03 - Medications Medications: Current Medications Albuterol/Ipratropium (Duoneb 3 Mg/0.5 Mg (3 Ml) Ud) 3 ml INH RQ4 [facility] Last Admin: 09/04/18 11:11 Dose: 3 ml Aspirin (Aspirin Chewable) 81 mg PO DAILY [facility] Last Admin: 09/04/18 08:08 Dose: 81 mg Enoxaparin Sodium (Lovenox) 40 mg SC DAILY [facility]; Protocol Last Admin: 09/04/18 08:08 Dose: 40 mg Ceftriaxone Sodium 1 gm/ (Sodium Chloride) 100 mls @ 100 mls/hr IVPB DAILY@2200 [facility]; Protocol Last Admin: 09/03/18 21:24 Dose: 100 mls/hr Methylprednisolone (Solu-Medrol) 80 mg IV Q8 [facility] Last Admin: 09/04/18 08:13 Dose: 80 mg Promethazine HCl/Codeine (Phenergan/Codeine Oral Syrup) 10 ml PO Q4 PRN PRN Reason: Cough Last Admin: 09/03/18 09:03 Dose: 10 ml Fluticasone/Salmeterol (Advair Diskus 250/50) 1 puff IH Q12 [facility] Last Admin: 09/04/18 08:07 Dose: 1 puff Theophylline (Uniphyl) 400 mg PO DAILY [facility] Zolpidem Tartrate (Ambien) 5 mg PO HS [facility] Last Admin: 09/03/18 21:58 Dose: 5 mg - Labs Labs: 09/02/18 06:45 09/02/18 06:45 - Respiratory Exam Respiratory Exam: Decreased Breath Sounds, Wheezes - Cardiovascular Exam Cardiovascular Exam: REGULAR RHYTHM, +S1, +S2 - Extremities Exam Additional comments: NO LE EDEMA - Additional Findings Additional findings: EKG SINUS RHYTHM WITH ST ON WALKING Assessment and Plan - Assessment and Plan (Free Text) Assessment: ACUTE EXACERBATION OF COPD CHEST WALL TENDERNESS Plan: PATIENT TO BE DISCHARGED TO TCU I SPOKE TO DR CHOU AND THE PATIENT AND MAYBE WE WILL DO A PHARMACOLOGICAL STRESS TEST MONDAY IF SHE IS BETTER AND OFF AMINOPHYLLINE OR ELSE IT CAN BE DONE LATER AN OUT PATIENT
[2018-09-04] MEDS: THEOPHYLLINE 400 MG T24(UNIPHYL) PO SCH (12:27)
[2018-09-04] MEDS: Promethazine/Cod 6.25mg-10mg/5ml Syr UD PO PRN (21:10)
[2018-09-05] MEDS: Albuterol-Ipratrop 3 mg / 0.5 (3 ml) UD INH SCH ×4 (00:09→11:21)
[2018-09-05 08:12] VITALS: RESP 20; O2SAT 97
--- NOTE | 2018-09-05 09:08 | PQF ---
PROVIDER RESPONSE TEXT: UPPER RESPIRATORY INFECTION--ETIOLOGY UNDETERMINED REVIEWER QUERY TEXT: Clarification of Clinical Diagnostic Findings Please clarify documentation or clinical relevance for the clinical / diagnostic findings or whether those are insignificant or unable to be further specified. Please clarify if there is an associated diagnosis to go along with the following findings on the CT Chest: Small patchy ground-glass opacity in the left lower lobe, likely infectious/inflammatory in e tiology.. The patient's Clinical Indicators include: Admitted with cough, pleuritic chest pain and worsening SOB. On Zithromax and Medrol pack at home and failed outpatient therapy. Temp max 100, WBC 17.8, decreased breath sounds. O2 saturation low of 84 %. Per patient she runs arou nd 85%. Rx: Rocephin, Duonebs, Solumedrol, Phenergan with Codeine, Advair Diskus Query created by: Rachel Garza on 09/04/2018 1:47 PM Electronically signed by: Negro Solis MD 09/05/2018 9:06 AM
[2018-09-05] MEDS: Fluticasone-Salmeterol 250-50mcg Diskus IH SCH (09:22)
[2018-09-05] MEDS: Enoxaparin 40 mg Syringe SC SCH (09:23)
[2018-09-05] MEDS: THEOPHYLLINE 400 MG T24(UNIPHYL) PO SCH (09:26)
--- NOTE | 2018-09-05 10:26 | CP.PCM.DIS ---
Provider - Provider Date of Admission: 09/02/18 11:29 Attending physician: Negro Solis MD Consults: 09/02/18 11:26 Cardiology Consult Routine Comment: Consulting Provider: Adam aWllis Consulting Physician: Adam Wallis Reason for Consult: CHEST PAIN Nursing Referral for Wound Care Routine Comment: Physician Instructions: Reason For Exam: WOUND CARE 09/04/18 09:17 Social Work Referral Routine Comment: for TCU eval. Physician Instructions: Reason For Exam: TCU TRANSFER Time Spent in preparation of Discharge (in minutes): 35 Diagnosis - Discharge Diagnosis (1) COPD exacerbation Status: Acute Comment: STILL HAS COUGH WITH THICK MUCUS PRODUCTION. O2 SAT AVERAGES 85%. WILL TRANSFER TO TCU FOR IV ANTIBIOTICS AND STEROIDS (2) Acute respiratory failure with hypercapnia Status: Acute (3) COPD (chronic obstructive pulmonary disease) Status: Acute (4) Chest pain Status: Acute Comment: CHEST PAIN RESOLVED. ACCORDING TO CARDIOLOGY PAIN IS PROBABLY NON- CARDIAC. EKG-SINUS TACH. CARDIAC ENZYMES NEGATIVE. PT REFUSES STRESS TEST. WILL CONTINUE ASA DAILY (5) DVT prophylaxis Status: Acute (6) Multifocal atrial tachycardia Status: Acute (7) Upper respiratory infection Status: Acute Comment: CONTINUE IV ROCEPHIN. CXR IN 1 WEEK TO RE-EVAL PULMONARY INFECTION Hospital Course - Lab Results Lab Results: Micro Results 09/01/18 21:40 Blood-Venous Blood Culture - Preliminary NO GROWTH AFTER 3 DAYS 09/01/18 21:15 Blood-Venous Blood Culture - Preliminary NO GROWTH AFTER 3 DAYS Most Recent Lab Values WBC 14.6 K/uL (4.8-10.8) H 09/02/18 06:45 RBC 4.44 Mil/uL (3.80-5.20) 09/02/18 06:45 Hgb 13.0 g/dL (12.0-16.0) 09/02/18 06:45 Hct 39.6 % (34.0-47.0) 09/02/18 06:45 MCV 89.2 fl (81.0-99.0) 09/02/18 06:45 MCH 29.2 pg (27.0-31.0) 09/02/18 06:45 MCHC 32.7 g/dL (33.0-37.0) L 09/02/18 06:45 RDW 15.2 % (11.5-14.5) H 09/02/18 06:45 Plt Count 194 K/uL (130-400) 09/02/18 06:45 MPV 7.1 fl (7.2-11.7) L 09/02/18 06:45 Neut % (Auto) 95.8 % (50.0-75.0) H 09/02/18 06:45 Lymph % (Auto) 3.5 % (20.0-40.0) L 09/02/18 06:45 [place] % (Auto) 0.7 % (0.0-10.0) 09/02/18 06:45 Eos % (Auto) 0.0 % (0.0-4.0) 09/02/18 06:45 Baso % (Auto) 0.0 % (0.0-2.0) 09/02/18 06:45 Neut # (Auto) 14.0 K/uL (1.8-7.0) H 09/02/18 06:45 Lymph # (Auto) 0.5 K/uL (1.0-4.3) L 09/02/18 06:45 [place] # (Auto) 0.1 K/uL (0.0-0.8) 09/02/18 06:45 Eos # (Auto) 0.0 K/uL (0.0-0.7) 09/02/18 06:45 Baso # (Auto) 0.0 K/uL (0.0-0.2) 09/02/18 06:45 Neutrophils % (Manual) 97 % (42-75) H 09/02/18 06:45 Lymphocytes % (Manual) 2 % (20-50) L 09/02/18 06:45 Monocytes % (Manual) 1 % (0-10) 09/02/18 06:45 Platelet Estimate Normal (NORMAL) 09/02/18 06:45 Anisocytosis (manual) Slight 09/02/18 06:45 Sodium 138 mmol/l (132-148) 09/02/18 06:45 Potassium 4.2 MMOL/L (3.6-5.0) 09/02/18 06:45 Chloride 99 mmol/L (98-107) 09/02/18 06:45 Carbon Dioxide 29 mmol/L (22-30) 09/02/18 06:45 Anion Gap 14 (10-20) 09/02/18 06:45 BUN 23 mg/dl (7-17) H 09/02/18 06:45 Creatinine 0.4 mg/dl (0.7-1.2) L 09/02/18 06:45 Est GFR ( Amer) > 60 09/02/18 06:45 Est GFR (Non-Af Amer) > 60 09/02/18 06:45 Random Glucose 206 mg/dL (65-105) H 09/02/18 06:45 Lactic Acid 1.2 MMOL/L (0.7-2.1) 09/01/18 21:40 Calcium 8.3 mg/dL (8.4-10.2) L 09/02/18 06:45 Magnesium 1.9 MG/DL (1.6-2.3) 09/01/18 21:40 Total Bilirubin 0.5 mg/dl (0.2-1.3) 09/02/18 06:45 AST 16 U/L (14-36) 09/02/18 06:45 ALT 20 U/L (9-52) 09/02/18 06:45 Alkaline Phosphatase 59 U/L (38-126) 09/02/18 06:45 Troponin I < 0.0120 ng/mL (0.00-0.120) 09/02/18 12:15 NT-Pro-B Natriuret Pep 87.4 pg/ml (0-900) 09/01/18 21:40 Total Protein 5.9 G/DL (6.3-8.2) L 09/02/18 06:45 Albumin 3.3 g/dL (3.5-5.0) L 09/02/18 06:45 Globulin 2.6 gm/dL (2.2-3.9) 09/02/18 06:45 Albumin/Globulin Ratio 1.2 (1.0-2.1) 09/02/18 06:45 Urine Color Yellow (YELLOW) 09/03/18 08:55 Urine Clarity Clear (Clear) 09/03/18 08:55 Urine pH 6.0 (5.0-8.0) 09/03/18 08:55 Ur Specific [place] 1.035 (1.003-1.030) H 09/03/18 08:55 Urine Protein 30 mg/dL (NEGATIVE) 09/03/18 08:55 Urine Glucose (UA) >=500 mg/dL (NEGATIVE) 09/03/18 08:55 Urine Ketones Negative mg/dL (NEGATIVE) 09/03/18 08:55 Urine Blood Negative (NEGATIVE) 09/03/18 08:55 Urine Nitrate Negative (NEGATIVE) 09/03/18 08:55 Urine Bilirubin Negative (NEGATIVE) 09/03/18 08:55 Urine Urobilinogen 0.2-1.0 mg/dL (0.2-1.0) 09/03/18 08:55 Ur Leukocyte Esterase Neg [place]/uL (Negative) 09/03/18 08:55 Urine RBC (Auto) 3 /hpf (0-3) 09/03/18 08:55 Urine Microscopic WBC 1 /hpf (0-5) 09/03/18 08:55 Ur Squamous Epith Cells < 1 /hpf (0-5) 09/03/18 08:55 Theophylline 7.8 ug/ml (10-20) L 09/03/18 08:55 Influenza Typ A,B (EIA) Negative for flu a/b (NEGATIVE) 09/01/18 21:40 - Hospital Course Hospital Course: SOB STILL PRESENT BUT IMPROVING STILL COUGHING CHEST PAIN RESOLVED Discharge Exam - Head Exam Head Exam: ATRAUMATIC, NORMAL INSPECTION, NORMOCEPHALIC - Eye Exam Eye Exam: EOMI, Normal appearance, PERRL Pupil Exam: NORMAL ACCOMODATION, PERRL - Respiratory Exam Respiratory Exam: Decreased Breath Sounds, Prolonged Expiratory Phase, Rales, Wheezes - GI/Abdominal Exam GI & Abdominal Exam: Normal Bowel Sounds - Rectal Exam Rectal Exam: NORMAL INSPECTION - Neurological Exam Neurological exam: Alert, CN II-XII Intact, Normal Gait, Oriented x3, Reflexes Normal - Psychiatric Exam Psychiatric exam: Normal Affect, Normal Mood - Skin Skin Exam: Dry, Intact, Normal Color, Warm Discharge Plan - Follow Up Plan Condition: FAIR Disposition: HOME/ ROUTINE Additional Instructions: TRANSFER TO TCU
--- NOTE | 2018-09-05 10:29 | CP.PCM.PN ---
Subjective - Date & Time of Evaluation Date of Evaluation: 09/05/18 Time of Evaluation: 09:30 - Subjective Subjective: NO CHEST PAIN BREATHING BETTER Objective - Vital Signs/Intake and Output Vital Signs (last 24 hours): Temp Pulse Resp BP Pulse Ox 98 F 96 H 20 132/68 97 09/05/18 08:12 09/05/18 08:12 09/05/18 08:12 09/05/18 08:12 09/05/18 08:12 - Medications Medications: Current Medications Albuterol/Ipratropium (Duoneb 3 Mg/0.5 Mg (3 Ml) Ud) 3 ml INH RQ4 [facility] Last Admin: 09/05/18 08:02 Dose: 3 ml Aspirin (Aspirin Chewable) 81 mg PO DAILY [facility] Last Admin: 09/05/18 09:23 Dose: 81 mg Enoxaparin Sodium (Lovenox) 40 mg SC DAILY [facility]; Protocol Last Admin: 09/05/18 09:23 Dose: 40 mg Ceftriaxone Sodium 1 gm/ (Sodium Chloride) 100 mls @ 100 mls/hr IVPB DAILY@2200 [facility]; Protocol Last Admin: 09/04/18 21:06 Dose: 100 mls/hr Methylprednisolone (Solu-Medrol) 80 mg IV Q8 [facility] Last Admin: 09/05/18 09:27 Dose: 80 mg Promethazine HCl/Codeine (Phenergan/Codeine Oral Syrup) 10 ml PO Q4 PRN PRN Reason: Cough Last Admin: 09/04/18 21:10 Dose: 10 ml Fluticasone/Salmeterol (Advair Diskus 250/50) 1 puff IH Q12 [facility] Last Admin: 09/05/18 09:22 Dose: 1 puff Theophylline (Uniphyl) 400 mg PO DAILY [facility] Last Admin: 09/05/18 09:26 Dose: 400 mg Zolpidem Tartrate (Ambien) 5 mg PO HS [facility] Last Admin: 09/04/18 22:10 Dose: 5 mg - Labs Labs: 09/02/18 06:45 09/02/18 06:45 - Respiratory Exam Additional comments: CLEARER BILAT - Cardiovascular Exam Cardiovascular Exam: REGULAR RHYTHM, +S1, +S2 - Extremities Exam Additional comments: NO LE EDEMA Assessment and Plan - Assessment and Plan (Free Text) Assessment: COPD EXACERTATION CHEST WALL PAIN Plan: FOR DISCHARGE TO TCU TODAY THE PATIENT WANTS TO DEFER PHARMACOLOGICAL STRESS TEST UNTIL SHE FEELS BETTER AND WILL DO IT AN OUTPATIENT
[2018-09-05 12:06] VITALS: BP 123/63; PULSE 106; TEMP 97.7
[2018-09-05] MEDS ORDERED: Sucralfate 1 gm/10 ml Oral Susp UD PO SCH (13:00)
--- NOTE | 2018-09-07 14:43 | PQF ---
PROVIDER RESPONSE TEXT: ACUTE RESPIRATORY FAILURE WITH HYPOXIA REVIEWER QUERY TEXT: Respiratory Failure Acuity and Type Respiratory Failure is documented in the Medical Record. Please specify the type and acuity (includes suspected or probable) Such as: -- Acute respiratory failure - With hypoxia - With hypercapnia -- Chronic respiratory failure - With hypoxia - With hypercapnia -- Acute on chronic respiratory failure - With hypoxia - With hypercapnia -- Other, please specify The patient's Clinical Indicators include: Discharge Summary documents - " Diagnosis: 2.) Acute Respiratory Failure w/ Hypercapnia ". ARF not do cumented in PN's. Please clarify if Acute Resp. Failure was ruled in or out. Query created by: Jaye Cyr on 09/06/2018 11:50 AM Electronically signed by: Negro Solis MD 09/07/2018 2:40 PM
== END 2018-09-05 14:00 | DRG 190 ==
LOC: H.ER 21:09 → H.ERHOLD 22:30 → H.MEDSURG1 23:06 → H.TEL 09-02 00:58 → OBSVTOIN 09-02 11:29 → H.TEL 09-02 15:09
PROVIDERS: ADMIT Internal Medicine Pulmonary Disease; ATTEND Internal Medicine Pulmonary Disease
PROC: 3E0F73Z Introduction of Anti-inflammatory into Respiratory Tract, Via Natural or Artificial Opening (ICD-10-PCS; principal; 2018-09-02)
DX: J44.1 Chronic obstructive pulmonary disease with (acute) exacerbation (principal); J96.01 Acute respiratory failure with hypoxia; I47.1 Supraventricular tachycardia; J06.9 Acute upper respiratory infection, unspecified; T17.990A Other foreign object in respiratory tract, part unspecified in causing asphyxiation, initial encounter; I48.91 Unspecified atrial fibrillation; R07.89 Other chest pain; E04.2 Nontoxic multinodular goiter; F41.9 Anxiety disorder, unspecified; E78.00 Pure hypercholesterolemia, unspecified; Z87.891 Personal history of nicotine dependence; Z79.82 Long term (current) use of aspirin; Z90.49 Acquired absence of other specified parts of digestive tract

== ENCOUNTER 2018-09-05 14:22 | Inpatient (IN) | payer OTHER ==
[2018-09-05 15:21] VITALS: BMI 22.4
[2018-09-05] MEDS ORDERED: Sodium Chloride 3% for Inhalation 4 ML VIAL.NEB IH PRN (15:22)
[2018-09-05] MEDS: Albuterol-Ipratrop 3 mg / 0.5 (3 ml) UD INH SCH ×2 (16:00→19:00)
[2018-09-05] MEDS: Sucralfate 1 gm/10 ml Oral Susp UD PO SCH ×2 (17:20→21:44)
[2018-09-05] MEDS: Promethazine/Cod 6.25mg-10mg/5ml Syr UD PO PRN (18:37)
[2018-09-05] MEDS: Fluticasone-Salmeterol 250-50mcg Diskus IH SCH (21:44)
[2018-09-06] MEDS: Albuterol-Ipratrop 3 mg / 0.5 (3 ml) UD INH SCH ×7 (00:19→23:39)
[2018-09-06 06:22] LABS: HEMOGLOBIN 12.1 g/dL (12.0-16.0); MEAN CELL VOLUME 88.6 fl (81.0-99.0); MEAN CORPUSCULAR HEMOGLOBIN 29.1 pg (27.0-31.0); MEAN CORPUSCULAR HGB CONC 32.8 g/dL (33.0-37.0); RBC 4.15 Mil/uL (3.80-5.20); RED CELL DISTRIBUTION WIDTH 14.8 % (11.5-14.5); WHITE BLOOD COUNT 7.1 K/uL (4.8-10.8)
[2018-09-06 06:46] LABS: BLOOD UREA NITROGEN 16 mg/dl (7-17); GFR NON-AFRICAN AMERICAN > 60
--- NOTE | 2018-09-06 08:20 | CP.PCM.HP ---
History of Present Illness - History of Present Illness History of Present Illness: 68 YR OLD FEMALE WHO WAS ORIGINALLY ADMITTED TO [facility] THEN TRANSFERRED TO THE [facility] FOR IV ANTIBIOTICS/STEROIDS AND PT/OT.SHE WAS ADMITTED BECAUSE OF COPD EXACERBATION/CHEST PAINS AND EXERCISE INTOLERANCE DESPITE COMPREHENSIVE OUTPATIENT THERAPY. HX OF COPD DUE TO CHRONIC CIGARETTE SMOKING IN THE PAST,M FAMILY HX--NON-CONTRIBUTARY MULTIFOCAL ATRIAL TACHYCARDIA,ANXIETY,THYROID NODULES Present on Admission - Present on Admission Any Indicators Present on Admission: No Past Patient History - Infectious Disease Hx of Infectious Diseases: None - Tetanus Immunizations Tetanus Immunization: Unknown - Past Medical History & Family History Past Medical History?: Yes - Past Social History Smoking Status: Never Smoked - CARDIAC Hx Atrial Fibrillation: Yes Hx Hypercholesterolemia: Yes - PULMONARY Hx Asthma: Yes Hx Bronchitis: Yes Hx Chronic Obstructive Pulmonary Disease (COPD): Yes - NEUROLOGICAL Hx Neurological Disorder: No - HEENT Hx HEENT Problems: No - RENAL Hx Chronic Kidney Disease: No - ENDOCRINE/METABOLIC Hx Endocrine Disorders: No - HEMATOLOGICAL/ONCOLOGICAL Hx AIDS: No Hx Human Immunodeficiency Virus (HIV): No - INTEGUMENTARY Hx Dermatological Problems: No - MUSCULOSKELETAL/RHEUMATOLOGICAL Hx Musculoskeletal Disorders: No Hx Falls: No - GASTROINTESTINAL Hx Gastrointestinal Disorders: No - GENITOURINARY/GYNECOLOGICAL Hx Genitourinary Disorders: No - PSYCHIATRIC Hx Psychophysiologic Disorder: No Hx Substance Use: No - SURGICAL HISTORY Hx Appendectomy: Yes - ANESTHESIA Hx Anesthesia: Yes Hx Anesthesia Reactions: No Hx Malignant Hyperthermia: No Meds Allergies/Adverse Reactions: Allergies Allergy/AdvReac Type Severity Reaction Status Date / Time No Known Allergies Allergy Verified 09/05/18 15:13 Physical Exam - Constitutional Appears: Chronically Ill - Head Exam Head Exam: ATRAUMATIC, NORMAL INSPECTION, NORMOCEPHALIC - Eye Exam Eye Exam: EOMI, Normal appearance, PERRL Pupil Exam: NORMAL ACCOMODATION, PERRL - ENT Exam ENT Exam: Mucous Membranes Moist, Normal Exam - Neck Exam Neck exam: Positive for: Normal Inspection - Respiratory Exam Respiratory Exam: Prolonged Expiratory Phase, Rales, Wheezes, NORMAL BREATHING PATTERN - Cardiovascular Exam Cardiovascular Exam: REGULAR RHYTHM - GI/Abdominal Exam GI & Abdominal Exam: Normal Bowel Sounds, Soft. absent: Tenderness - Rectal Exam Rectal Exam: NORMAL INSPECTION - Extremities Exam Extremities exam: Positive for: normal inspection - Back Exam Back exam: NORMAL INSPECTION - Neurological Exam Neurological exam: Alert, CN II-XII Intact, Normal Gait, Oriented x3, Reflexes Normal - Psychiatric Exam Psychiatric exam: Normal Affect, Normal Mood - Skin Skin Exam: Dry, Intact, Normal Color, Warm Results - Vital Signs Recent Vital Signs: Last Vital Signs Temp 98.1 F 09/06/18 08:12 Pulse 81 09/06/18 08:12 Resp 18 09/06/18 08:12 BP 146/74 09/06/18 08:12 Pulse Ox 99 09/06/18 08:12 - Labs Result Diagrams: 09/06/18 05:37 09/06/18 05:37 Labs: Laboratory Results - last 24 hr 09/06/18 09/06/18 05:37 05:37 WBC 7.1 D RBC 4.15 Hgb 12.1 Hct 36.8 MCV 88.6 MCH 29.1 MCHC 32.8 L RDW 14.8 H Plt Count 157 Sodium 137 Potassium 3.7 Chloride 100 Carbon Dioxide 32 H Anion Gap 9 L BUN 16 Creatinine 0.5 L Est GFR ( Amer) > 60 Est GFR (Non-Af Amer) > 60 Random Glucose 196 H Calcium 8.0 L Assessment & Plan - Assessment and Plan (Free Text) Assessment: ACUTE EXAC OF COPD MUCUS PLUGGING OF AIRWAYS TACHYCARDIA THYROID NODULES ANXIETY UPPER RESPIRATORY INFECTION DECONDITIONING Plan: SEE ORDERS CONTINUE CURRENT RX - Date & Time Date: 09/06/18 Time: 08:22
[2018-09-06] MEDS: Calcium-Vit D 500 mg-200 Units Tab UD PO SCH (08:55)
[2018-09-06] MEDS: Fluticasone-Salmeterol 250-50mcg Diskus IH SCH ×2 (08:55→21:01)
[2018-09-06] MEDS: Sucralfate 1 gm/10 ml Oral Susp UD PO SCH ×4 (08:55→21:10)
[2018-09-06] MEDS: Enoxaparin 40 mg Syringe SC SCH (08:55)
[2018-09-06] MEDS: Tiotropium 18 mcg Cap For Inhalation IH SCH (08:56)
[2018-09-06] MEDS: THEOPHYLLINE 400 MG T24(UNIPHYL) PO SCH (08:56)
[2018-09-06] MEDS ORDERED: cefTRIAXone IV 1 gm in Dextros 50 ML BAG IVPB SCH (09:00)
[2018-09-06] MEDS: MethylPREDNISolone 40 mg Vial IV SCH ×3 (09:25→23:59)
[2018-09-06] MEDS: Promethazine/Cod 6.25mg-10mg/5ml Syr UD PO PRN ×2 (09:51→21:52)
--- NOTE | 2018-09-06 11:07 | CP.PCM.CON ---
History of Present Illness - History of Present Illness History of Present Illness: THE PATIENT IS A 68 YEAR OLD FEMALE WHO WAS ADMITTED LST WEEK TO [facility] FOR ACUTE EXACERBATION OF COPD. SHE HAD CHEST WALL PAIN WHILE ON 4N. I HAVE BEEN ASKED TO FOLLOW HER IN TCU. SHE DOESN'T HAVE ANY CHEST BRIANNE AT THIS TIME. SHE IS SILL FINISHING HER TREATMENT FOR COPD EXACERBATION. SHE CAN'T COMPLETE A TREADMILL STRESS TEST DUE TO HER COPD AND COULDN'T DO A PHARMACOLOGICAL STRESS TEST SHE WAS ON IV AMINOPHYLLINE. Past Patient History - Infectious Disease Hx of Infectious Diseases: None - Tetanus Immunizations Tetanus Immunization: Unknown - Past Medical History & Family History Past Medical History?: Yes - Past Social History Smoking Status: Never Smoked - CARDIAC Hx Atrial Fibrillation: Yes Hx Hypercholesterolemia: Yes - PULMONARY Hx Asthma: Yes Hx Bronchitis: Yes Hx Chronic Obstructive Pulmonary Disease (COPD): Yes - NEUROLOGICAL Hx Neurological Disorder: No - HEENT Hx HEENT Problems: No - RENAL Hx Chronic Kidney Disease: No - ENDOCRINE/METABOLIC Hx Endocrine Disorders: No - HEMATOLOGICAL/ONCOLOGICAL Hx AIDS: No Hx Human Immunodeficiency Virus (HIV): No - INTEGUMENTARY Hx Dermatological Problems: No - MUSCULOSKELETAL/RHEUMATOLOGICAL Hx Musculoskeletal Disorders: No Hx Falls: No - GASTROINTESTINAL Hx Gastrointestinal Disorders: No - GENITOURINARY/GYNECOLOGICAL Hx Genitourinary Disorders: No - PSYCHIATRIC Hx Psychophysiologic Disorder: No Hx Substance Use: No - SURGICAL HISTORY Hx Appendectomy: Yes - ANESTHESIA Hx Anesthesia: Yes Hx Anesthesia Reactions: No Hx Malignant Hyperthermia: No Meds Allergies/Adverse Reactions: Allergies Allergy/AdvReac Type Severity Reaction Status Date / Time No Known Allergies Allergy Verified 09/05/18 15:13 - Medications Medications: Current Medications Albuterol/Ipratropium (Duoneb 3 Mg/0.5 Mg (3 Ml) Ud) 3 ml INH RQ4 [facility] Last Admin: 09/06/18 07:10 Dose: 3 ml Aspirin (Aspirin Chewable) 81 mg PO DAILY [facility] Last Admin: 09/06/18 08:55 Dose: 81 mg Calcium/Vitamin D (Oyster Shell Calcium/Vitamin D 500 Mg-200 Iu) 1 tab PO DAILY [facility] Last Admin: 09/06/18 08:55 Dose: 1 tab Enoxaparin Sodium (Lovenox) 40 mg SC DAILY [facility]; Protocol Last Admin: 09/06/18 08:55 Dose: 40 mg Ceftriaxone Sodium 1 gm/ (Sodium Chloride) 100 mls @ 100 mls/hr IVPB DAILY@2200 [facility] Last Admin: 09/05/18 21:43 Dose: 100 mls/hr Lactulose (Enulose) 20 gm PO DAILY PRN PRN Reason: Constipation Methylprednisolone (Solu-Medrol) 40 mg IV Q8H [facility] Last Admin: 09/06/18 09:25 Dose: 40 mg Promethazine HCl/Codeine (Phenergan/Codeine Oral Syrup) 10 ml PO Q4 PRN PRN Reason: Cough Last Admin: 09/06/18 09:51 Dose: 10 ml Fluticasone/Salmeterol (Advair Diskus 250/50) 1 puff IH Q12 [facility] Last Admin: 09/06/18 08:55 Dose: 1 puff Sucralfate (Carafate Oral Susp) 1 gm PO QID [facility] Last Admin: 09/06/18 08:55 Dose: 1 gm Theophylline (Uniphyl) 400 mg PO DAILY [facility] Last Admin: 09/06/18 08:56 Dose: 400 mg Tiotropium [place] (Spiriva) 18 mcg IH DAILY [facility] Last Admin: 09/06/18 08:56 Dose: 18 mcg Zolpidem Tartrate (Ambien) 5 mg PO HS [facility] Last Admin: 09/05/18 23:00 Dose: 5 mg Physical Exam - Respiratory Exam Respiratory Exam: Rales, Wheezes - Cardiovascular Exam Cardiovascular Exam: REGULAR RHYTHM, +S1, +S2 - Extremities Exam Additional comments: NO LE EDEMA Results - Vital Signs Recent Vital Signs: Last Vital Signs Temp 98.1 F 09/06/18 08:12 Pulse 81 09/06/18 08:12 Resp 18 09/06/18 08:12 BP 146/74 09/06/18 08:12 Pulse Ox 99 09/06/18 08:12 - Labs Result Diagrams: 09/06/18 05:37 09/06/18 05:37 Labs: Laboratory Results - last 24 hr 09/06/18 09/06/18 05:37 05:37 WBC 7.1 D RBC 4.15 Hgb 12.1 Hct 36.8 MCV 88.6 MCH 29.1 MCHC 32.8 L RDW 14.8 H Plt Count 157 Sodium 137 Potassium 3.7 Chloride 100 Carbon Dioxide 32 H Anion Gap 9 L BUN 16 Creatinine 0.5 L Est GFR ( Amer) > 60 Est GFR (Non-Af Amer) > 60 Random Glucose 196 H Calcium 8.0 L Assessment & Plan - Assessment and Plan (Free Text) Assessment: COPD EXACERBATION CHEST WALL PAIN Plan: CONTINUE ASPIRIN, LOVENOX, ANTIBIOTICS AND COPD MEDICATIONS WILL DO A PHARMACOLOGICAL STRESS TEST ON THE PATIENT AN OUT PATIENT WHEN SHE IS OFF THEOPHYLLINE
[2018-09-07] MEDS: Albuterol-Ipratrop 3 mg / 0.5 (3 ml) UD INH SCH ×3 (05:06→11:48)
--- NOTE | 2018-09-07 07:25 | CARD ---
APPROVED REPORT Date of service: 09/07/2018 EKG Measurement Heart [id number] VT [id number] [id number] <Conclusion> Sinus tachycardia with premature atrial complexes Otherwise normal ECG
[2018-09-07] MEDS: Fluticasone-Salmeterol 250-50mcg Diskus IH SCH ×2 (08:30→21:12)
[2018-09-07] MEDS: Calcium-Vit D 500 mg-200 Units Tab UD PO SCH (08:41)
[2018-09-07] MEDS: Sucralfate 1 gm/10 ml Oral Susp UD PO SCH ×4 (08:41→21:12)
[2018-09-07] MEDS: MethylPREDNISolone 40 mg Vial IV SCH ×2 (08:42→16:30)
[2018-09-07] MEDS: THEOPHYLLINE 400 MG T24(UNIPHYL) PO SCH (08:42)
[2018-09-07] MEDS: Enoxaparin 40 mg Syringe SC SCH (08:42)
[2018-09-07] MEDS: Tiotropium 18 mcg Cap For Inhalation IH SCH (08:42)
--- NOTE | 2018-09-07 10:33 | CP.PCM.PN ---
Subjective - Date & Time of Evaluation Date of Evaluation: 09/07/18 Time of Evaluation: 09:30 - Subjective Subjective: NO CHEST PAIN BREATHING IS BETTER Objective - Vital Signs/Intake and Output Vital Signs (last 24 hours): Temp Pulse Resp BP Pulse Ox 97.5 F L 103 H 18 138/80 97 09/07/18 07:51 09/07/18 07:51 09/07/18 07:51 09/07/18 07:51 09/07/18 07:51 - Medications Medications: Current Medications Albuterol/Ipratropium (Duoneb 3 Mg/0.5 Mg (3 Ml) Ud) 3 ml INH RQ4 [facility] Last Admin: 09/07/18 07:20 Dose: 3 ml Aspirin (Aspirin Chewable) 81 mg PO DAILY [facility] Last Admin: 09/07/18 08:43 Dose: 81 mg Calcium/Vitamin D (Oyster Shell Calcium/Vitamin D 500 Mg-200 Iu) 1 tab PO DAILY [facility] Last Admin: 09/07/18 08:41 Dose: 1 tab Enoxaparin Sodium (Lovenox) 40 mg SC DAILY [facility]; Protocol Last Admin: 09/07/18 08:42 Dose: 40 mg Ceftriaxone Sodium 1 gm/ (Sodium Chloride) 100 mls @ 100 mls/hr IVPB DAILY@1700 [facility]; Protocol Lactulose (Enulose) 20 gm PO DAILY PRN PRN Reason: Constipation Methylprednisolone (Solu-Medrol) 40 mg IV Q8H [facility] Last Admin: 09/07/18 08:42 Dose: 40 mg Promethazine HCl/Codeine (Phenergan/Codeine Oral Syrup) 10 ml PO Q4 PRN PRN Reason: Cough Last Admin: 09/06/18 21:52 Dose: 10 ml Fluticasone/Salmeterol (Advair Diskus 250/50) 1 puff IH Q12 [facility] Last Admin: 09/07/18 08:30 Dose: 1 puff Sucralfate (Carafate Oral Susp) 1 gm PO QID [facility] Last Admin: 09/07/18 08:41 Dose: 1 gm Theophylline (Uniphyl) 400 mg PO DAILY [facility] Last Admin: 09/07/18 08:42 Dose: 400 mg Tiotropium [place] (Spiriva) 18 mcg IH DAILY [facility] Last Admin: 09/07/18 08:42 Dose: 18 mcg Zolpidem Tartrate (Ambien) 5 mg PO HS [facility] Last Admin: 09/06/18 21:04 Dose: 5 mg - Labs Labs: 09/06/18 05:37 09/06/18 05:37 - Respiratory Exam Respiratory Exam: Wheezes - Cardiovascular Exam Cardiovascular Exam: Tachycardia, REGULAR RHYTHM, +S1, +S2 - Extremities Exam Additional comments: NO LE EDEMA - Additional Findings Additional findings: THE NURSE CALLED ME YESTERDAY BECAUSE HER HEART RATE WENT UP TO 120 WITH AMBULATION AND SLOWED DOWN WHEN SHE GOT BACK IN BED EKG TODAY SINUS TACHYCARDIA AT A RATE OF 104 Assessment and Plan - Assessment and Plan (Free Text) Assessment: COPD EXACERBATION MILD SINUS TACHYCARDIA ON EXERTION IS NORMAL FOR PATIENTS WITH SEVERE COPD Plan: SINUS TACHYCARDIA ON EXERTION IS WNL FOR PATIENTS WITH SEVERE COPD AND DOESN'T NEED ANY SPECIAL TREATMENT CONTINUE COPD TREATMENT AND [place]
--- NOTE | 2018-09-07 10:36 | RAD ---
Date of service: 09/07/2018 HISTORY: COPD COMPARISON: Comparison chest chest radiograph and CTA chest dated 09/01/2018 and 09/02/2018 respectively. Comparison also made with CTA chest FINDINGS: LUNGS: Hyperinflation consistent with chronic manifestations of COPD. Minimal linear bibasilar atelectasis/scarring PLEURA: No significant pleural effusion identified, no pneumothorax apparent. CARDIOVASCULAR: Mild aortic atherosclerotic calcification present. Heart size within range of normal. No pulmonary vascular congestion. OSSEOUS STRUCTURES: No significant abnormalities. VISUALIZED UPPER ABDOMEN: Normal. OTHER FINDINGS: None. IMPRESSION: Hyperinflation consistent with chronic manifestations of COPD. Minimal linear bibasilar atelectasis/scarring
[2018-09-07 11:42] LABS: BLOOD UREA NITROGEN 15 mg/dl (7-17); CALCIUM 8.5 mg/dL (8.4-10.2); GFR NON-AFRICAN AMERICAN > 60
--- NOTE | 2018-09-07 13:04 | CP.PCM.PN ---
Subjective - Date & Time of Evaluation Date of Evaluation: 09/07/18 Time of Evaluation: 13:04 - Subjective Subjective: TACHYCARDIC TODAY WITH HYPOXEMIA SOB IMPROVED EKG-SINUS TACH Objective - Vital Signs/Intake and Output Vital Signs (last 24 hours): Temp Pulse Resp BP Pulse Ox 97.5 F L 103 H 18 138/80 97 09/07/18 07:51 09/07/18 07:51 09/07/18 07:51 09/07/18 07:51 09/07/18 07:51 - Medications Medications: Current Medications Albuterol/Ipratropium (Duoneb 3 Mg/0.5 Mg (3 Ml) Ud) 3 ml INH RQ4 [facility] Last Admin: 09/07/18 11:48 Dose: Not Given Aspirin (Aspirin Chewable) 81 mg PO DAILY [facility] Last Admin: 09/07/18 08:43 Dose: 81 mg Calcium/Vitamin D (Oyster Shell Calcium/Vitamin D 500 Mg-200 Iu) 1 tab PO DAILY [facility] Last Admin: 09/07/18 08:41 Dose: 1 tab Enoxaparin Sodium (Lovenox) 40 mg SC DAILY [facility]; Protocol Last Admin: 09/07/18 08:42 Dose: 40 mg Ceftriaxone Sodium 1 gm/ (Sodium Chloride) 100 mls @ 100 mls/hr IVPB DAILY@1700 [facility]; Protocol Lactulose (Enulose) 20 gm PO DAILY PRN PRN Reason: Constipation Last Admin: 09/07/18 12:42 Dose: 20 gm Methylprednisolone (Solu-Medrol) 40 mg IV Q8H [facility] Last Admin: 09/07/18 08:42 Dose: 40 mg Promethazine HCl/Codeine (Phenergan/Codeine Oral Syrup) 10 ml PO Q4 PRN PRN Reason: Cough Last Admin: 09/06/18 21:52 Dose: 10 ml Fluticasone/Salmeterol (Advair Diskus 250/50) 1 puff IH Q12 [facility] Last Admin: 09/07/18 08:30 Dose: 1 puff Sucralfate (Carafate Oral Susp) 1 gm PO QID [facility] Last Admin: 09/07/18 12:42 Dose: 1 gm Tiotropium [place] (Spiriva) 18 mcg IH DAILY [facility] Last Admin: 09/07/18 08:42 Dose: 18 mcg Zolpidem Tartrate (Ambien) 5 mg PO HS [facility] Last Admin: 09/06/18 21:04 Dose: 5 mg - Labs Labs: 09/06/18 05:37 09/07/18 11:25 - Constitutional Appears: Chronically Ill - Head Exam Head Exam: ATRAUMATIC, NORMAL INSPECTION, NORMOCEPHALIC - Eye Exam Eye Exam: EOMI, Normal appearance, PERRL Pupil Exam: NORMAL ACCOMODATION, PERRL - ENT Exam ENT Exam: Mucous Membranes Moist, Normal Exam - Neck Exam Neck Exam: Full ROM, Normal Inspection. absent: Lymphadenopathy - Respiratory Exam Respiratory Exam: Decreased Breath Sounds, Prolonged Expiratory Phase, NORMAL BREATHING PATTERN - Cardiovascular Exam Cardiovascular Exam: Tachycardia, REGULAR RHYTHM, +S1, +S2. absent: Murmur - GI/Abdominal Exam GI & Abdominal Exam: Soft, Normal Bowel Sounds. absent: Tenderness - Rectal Exam Rectal Exam: NORMAL INSPECTION - Extremities Exam Extremities Exam: Full ROM, Normal Capillary Refill, Normal Inspection. absent: Joint Swelling, Pedal Edema - Back Exam Back Exam: NORMAL INSPECTION - Neurological Exam Neurological Exam: Alert, Awake, CN II-XII Intact, Normal Gait, Oriented x3 - Psychiatric Exam Psychiatric exam: Normal Affect, Normal Mood - Skin Skin Exam: Dry, Intact, Normal Color, Warm Assessment and Plan - Assessment and Plan (Free Text) Assessment: COPD EXAC TACHYCARDIA ANXIETY Plan: D/C THEOPHYLLINE CARDIAC RE-EVAL MAY GIVE CARDIZEM IF TACHYCARDIA WORSENS WILL NEED HOME O2 ON D/C HOME
[2018-09-07] MEDS ORDERED: Levalbuterol 1.25 MG/3 ML Inhal Soln UD INH PRN (13:05)
--- NOTE | 2018-09-07 14:25 | CARD ---
APPROVED REPORT Date of service: 09/07/2018 EKG Measurement Heart [id number] <Conclusion> Atrial fibrillation Abnormal Electrocardiogram
[2018-09-07] MEDS: Promethazine/Cod 6.25mg-10mg/5ml Syr UD PO PRN (21:14)
[2018-09-08] MEDS: MethylPREDNISolone 40 mg Vial IV SCH ×3 (00:22→16:11)
[2018-09-08] MEDS: Fluticasone-Salmeterol 250-50mcg Diskus IH SCH ×2 (09:29→21:22)
[2018-09-08] MEDS: Sucralfate 1 gm/10 ml Oral Susp UD PO SCH ×4 (09:31→21:22)
[2018-09-08] MEDS: Enoxaparin 40 mg Syringe SC SCH (09:33)
[2018-09-08] MEDS: Calcium-Vit D 500 mg-200 Units Tab UD PO SCH (09:34)
[2018-09-08] MEDS: Promethazine/Cod 6.25mg-10mg/5ml Syr UD PO PRN ×2 (09:34→21:22)
[2018-09-08] MEDS: Tiotropium 18 mcg Cap For Inhalation IH SCH (09:36)
--- NOTE | 2018-09-08 11:20 | CP.PCM.PN ---
Subjective - Date & Time of Evaluation Date of Evaluation: 09/08/18 Time of Evaluation: 11:21 - Subjective Subjective: COUGHING UP YELLOW SPUTUM NO CHEST PAINS/PALPITATIONS SOB IMPROVED HAS MILD ABDOMINAL DISCOMFORT Objective - Vital Signs/Intake and Output Vital Signs (last 24 hours): Temp Pulse Resp BP Pulse Ox 98 F 84 20 135/83 95 09/08/18 09:16 09/08/18 09:16 09/08/18 09:16 09/08/18 09:16 09/08/18 09:16 - Medications Medications: Current Medications Aspirin (Aspirin Chewable) 81 mg PO DAILY [facility] Last Admin: 09/08/18 09:32 Dose: 81 mg Calcium/Vitamin D (Oyster Shell Calcium/Vitamin D 500 Mg-200 Iu) 1 tab PO DAILY [facility] Last Admin: 09/08/18 09:34 Dose: 1 tab Enoxaparin Sodium (Lovenox) 40 mg SC DAILY [facility]; Protocol Last Admin: 09/08/18 09:33 Dose: 40 mg Ceftriaxone Sodium 1 gm/ (Sodium Chloride) 100 mls @ 100 mls/hr IVPB DAILY@1700 [facility]; Protocol Last Admin: 09/07/18 17:33 Dose: 100 mls/hr Lactulose (Enulose) 20 gm PO DAILY PRN PRN Reason: Constipation Last Admin: 09/07/18 12:42 Dose: 20 gm Levalbuterol HCl (Xopenex) 1.25 mg INH RQ8 PRN PRN Reason: Shortness of Breath Methylprednisolone (Solu-Medrol) 40 mg IV Q8H [facility] Last Admin: 09/08/18 09:32 Dose: 40 mg Promethazine HCl/Codeine (Phenergan/Codeine Oral Syrup) 10 ml PO Q4 PRN PRN Reason: Cough Last Admin: 09/08/18 09:34 Dose: 10 ml Fluticasone/Salmeterol (Advair Diskus 250/50) 1 puff IH Q12 [facility] Last Admin: 09/08/18 09:29 Dose: 1 puff Sucralfate (Carafate Oral Susp) 1 gm PO QID [facility] Last Admin: 09/08/18 09:31 Dose: 1 gm Tiotropium [place] (Spiriva) 18 mcg IH DAILY [facility] Last Admin: 09/08/18 09:36 Dose: 18 mcg Zolpidem Tartrate (Ambien) 5 mg PO HS [facility] Last Admin: 09/07/18 21:14 Dose: 5 mg - Labs Labs: 09/06/18 05:37 09/07/18 11:25 - Constitutional Appears: No Acute Distress - Head Exam Head Exam: ATRAUMATIC, NORMAL INSPECTION, NORMOCEPHALIC - Eye Exam Eye Exam: EOMI, Normal appearance, PERRL Pupil Exam: NORMAL ACCOMODATION, PERRL - ENT Exam ENT Exam: Mucous Membranes Moist, Normal Exam - Neck Exam Neck Exam: Full ROM, Normal Inspection. absent: Lymphadenopathy - Respiratory Exam Respiratory Exam: Clear to Ausculation Bilateral, Prolonged Expiratory Phase, NORMAL BREATHING PATTERN - Cardiovascular Exam Cardiovascular Exam: REGULAR RHYTHM, +S1, +S2. absent: Murmur - GI/Abdominal Exam GI & Abdominal Exam: Soft, Normal Bowel Sounds. absent: Tenderness - Rectal Exam Rectal Exam: NORMAL INSPECTION - Extremities Exam Extremities Exam: Full ROM, Normal Capillary Refill, Normal Inspection. absent: Joint Swelling, Pedal Edema - Back Exam Back Exam: NORMAL INSPECTION - Neurological Exam Neurological Exam: Alert, Awake, CN II-XII Intact, Normal Gait, Oriented x3 - Psychiatric Exam Psychiatric exam: Normal Affect, Normal Mood - Skin Skin Exam: Dry, Intact, Normal Color, Warm Assessment and Plan - Assessment and Plan (Free Text) Assessment: COPD EXAC GASTRITIS TACHYCARDIA RESOLVED HYPOXIA Plan: CONTINUE CURRENT RX D/C HOME WITH O2 NEXT WEEK
[2018-09-09] MEDS: MethylPREDNISolone 40 mg Vial IV SCH ×2 (01:20→08:33)
[2018-09-09] MEDS: Sucralfate 1 gm/10 ml Oral Susp UD PO SCH ×4 (06:42→21:48)
[2018-09-09] MEDS: Fluticasone-Salmeterol 250-50mcg Diskus IH SCH ×2 (08:34→21:48)
[2018-09-09] MEDS: Calcium-Vit D 500 mg-200 Units Tab UD PO SCH (08:35)
[2018-09-09] MEDS: Enoxaparin 40 mg Syringe SC SCH (08:35)
[2018-09-09] MEDS: Tiotropium 18 mcg Cap For Inhalation IH SCH (08:36)
--- NOTE | 2018-09-09 10:09 | CP.PCM.PN ---
Subjective - Date & Time of Evaluation Date of Evaluation: 09/09/18 Time of Evaluation: 10:10 - Subjective Subjective: SOB IMPROVED COUGH LESS NO CHEST PAINS OR PALPITATIONS ABDOMINAL PAIN RESOLVED Objective - Vital Signs/Intake and Output Vital Signs (last 24 hours): Temp Pulse Resp BP Pulse Ox 98.6 F 108 H 20 121/73 93 L 09/08/18 19:51 09/08/18 19:51 09/08/18 19:51 09/08/18 19:51 09/08/18 19:51 - Medications Medications: Current Medications Aspirin (Aspirin Chewable) 81 mg PO DAILY [facility] Last Admin: 09/09/18 08:34 Dose: 81 mg Calcium/Vitamin D (Oyster Shell Calcium/Vitamin D 500 Mg-200 Iu) 1 tab PO DAILY [facility] Last Admin: 09/09/18 08:35 Dose: 1 tab Lactulose (Enulose) 20 gm PO DAILY PRN PRN Reason: Constipation Last Admin: 09/07/18 12:42 Dose: 20 gm Levalbuterol HCl (Xopenex) 1.25 mg INH RQ8 PRN PRN Reason: Shortness of Breath Promethazine HCl/Codeine (Phenergan/Codeine Oral Syrup) 10 ml PO Q4 PRN PRN Reason: Cough Last Admin: 09/08/18 21:22 Dose: 10 ml Fluticasone/Salmeterol (Advair Diskus 250/50) 1 puff IH Q12 [facility] Last Admin: 09/09/18 08:34 Dose: 1 puff Sucralfate (Carafate Oral Susp) 1 gm PO 0730,1130,1630,2200 [facility] Last Admin: 09/09/18 06:42 Dose: 1 gm Tiotropium [place] (Spiriva) 18 mcg IH DAILY [facility] Last Admin: 09/09/18 08:36 Dose: 18 mcg Zolpidem Tartrate (Ambien) 5 mg PO HS [facility] Last Admin: 09/08/18 22:33 Dose: 5 mg - Labs Labs: 09/06/18 05:37 09/07/18 11:25 - Constitutional Appears: No Acute Distress - Head Exam Head Exam: ATRAUMATIC, NORMAL INSPECTION, NORMOCEPHALIC - Eye Exam Eye Exam: EOMI, Normal appearance, PERRL Pupil Exam: NORMAL ACCOMODATION, PERRL - ENT Exam ENT Exam: Mucous Membranes Moist, Normal Exam - Neck Exam Neck Exam: Full ROM, Normal Inspection. absent: Lymphadenopathy - Respiratory Exam Respiratory Exam: Clear to Ausculation Bilateral, Prolonged Expiratory Phase, NORMAL BREATHING PATTERN - Cardiovascular Exam Cardiovascular Exam: REGULAR RHYTHM, +S1, +S2. absent: Murmur - GI/Abdominal Exam GI & Abdominal Exam: Soft, Normal Bowel Sounds. absent: Tenderness - Rectal Exam Rectal Exam: NORMAL INSPECTION - Extremities Exam Extremities Exam: Full ROM, Normal Capillary Refill, Normal Inspection. absent: Joint Swelling, Pedal Edema - Back Exam Back Exam: NORMAL INSPECTION - Neurological Exam Neurological Exam: Alert, Awake, CN II-XII Intact, Normal Gait, Oriented x3 - Psychiatric Exam Psychiatric exam: Normal Affect, Normal Mood - Skin Skin Exam: Dry, Intact, Normal Color, Warm Assessment and Plan - Assessment and Plan (Free Text) Assessment: COPD IMPROVED URI-IMPROVED CHEST PAIN RESOLVED TACHYCARDIA RESOLVED ANXIETY IMPROVED STILL HYPOXIC ON MILD EXERTION--O2 SAT--83% ON RA Plan: D/C HOME IN AM WILL OBTAIN HOME O2 CONTINOUS AT 2L/M
[2018-09-09] MEDS ORDERED: Insulin Regular 100 units/ml SC ONE (11:39)
[2018-09-10] MEDS: Promethazine/Cod 6.25mg-10mg/5ml Syr UD PO PRN ×3 (03:32→22:16)
[2018-09-10] MEDS: Sucralfate 1 gm/10 ml Oral Susp UD PO SCH ×4 (06:54→22:16)
--- NOTE | 2018-09-10 08:11 | CP.PCM.DIS ---
Provider - Provider Date of Admission: 09/05/18 15:21 Attending physician: Negro Ruvalcaba MD Consults: 09/05/18 15:48 Cardiology Consult Routine Comment: Consulting Provider: Adam Wallis Consulting Physician: Adam Wallis Reason for Consult: chest pain Time Spent in preparation of Discharge (in minutes): 35 Diagnosis - Discharge Diagnosis (1) Anxiety Status: Acute Priority: Low Comment: calmer. on no antianxiety meds (2) Bronchitis Status: Acute Priority: Low Comment: cough present but no fever or chills. off antibiotics (3) COPD (chronic obstructive pulmonary disease) Status: Acute Priority: High Comment: cough improved. shortness of bresth less. lungs-mild wheezing. o2 sat--83% on room air but 95% on nc o2--2l/m. will discharge on home oxygen 2l/m via nc. follow up with dr ruvalcaba (4) COPD exacerbation Status: Acute (5) Chest pain Status: Acute Priority: Low Comment: chest pain resolved. palpitations resolved (6) DVT prophylaxis Status: Acute (7) Multifocal atrial tachycardia Status: Acute Priority: Low Comment: heart-regular. will follow up with golf ball inspector as out pt for further work up. pr refused stress test (8) Thyroid nodule Status: Acute Priority: Low Comment: for out pt thyroid biopsy (9) Physical deconditioning Status: Acute Hospital Course - Lab Results Lab Results: Most Recent Lab Values WBC 7.1 K/uL (4.8-10.8) D 09/06/18 05:37 RBC 4.15 Mil/uL (3.80-5.20) 09/06/18 05:37 Hgb 12.1 g/dL (12.0-16.0) 09/06/18 05:37 Hct 36.8 % (34.0-47.0) 09/06/18 05:37 MCV 88.6 fl (81.0-99.0) 09/06/18 05:37 MCH 29.1 pg (27.0-31.0) 09/06/18 05:37 MCHC 32.8 g/dL (33.0-37.0) L 09/06/18 05:37 RDW 14.8 % (11.5-14.5) H 09/06/18 05:37 Plt Count 157 K/uL (130-400) 09/06/18 05:37 Sodium 135 mmol/l (132-148) 09/07/18 11:25 Potassium 3.5 MMOL/L (3.6-5.0) L 09/07/18 11:25 Chloride 95 mmol/L (98-107) L 09/07/18 11:25 Carbon Dioxide 33 mmol/L (22-30) H 09/07/18 11:25 Anion Gap 11 (10-20) 09/07/18 11:25 BUN 15 mg/dl (7-17) 09/07/18 11:25 Creatinine 0.5 mg/dl (0.7-1.2) L 09/07/18 11:25 Est GFR ( Amer) > 60 09/07/18 11:25 Est GFR (Non-Af Amer) > 60 09/07/18 11:25 POC Glucose (mg/dL) 191 mg/dL (65-110) H 09/09/18 15:58 Random Glucose 320 mg/dL (65-105) H 09/07/18 11:25 Calcium 8.5 mg/dL (8.4-10.2) 09/07/18 11:25 Theophylline 12.9 ug/ml (10-20) 09/07/18 11:25 Discharge Exam - Head Exam Head Exam: ATRAUMATIC, NORMAL INSPECTION, NORMOCEPHALIC Discharge Plan - Follow Up Plan Condition: GOOD Disposition: HOME/ ROUTINE
[2018-09-10] MEDS: Calcium-Vit D 500 mg-200 Units Tab UD PO SCH (08:21)
[2018-09-10] MEDS: Fluticasone-Salmeterol 250-50mcg Diskus IH SCH ×2 (08:21→22:15)
[2018-09-10] MEDS: Tiotropium 18 mcg Cap For Inhalation IH SCH (08:21)
--- NOTE | 2018-09-10 09:52 | CP.PCM.PN ---
Subjective - Date & Time of Evaluation Date of Evaluation: 09/10/18 Time of Evaluation: 08:15 - Subjective Subjective: NO FURTHER CHEST PAIN BREATHING MUCH BETTER Objective - Vital Signs/Intake and Output Vital Signs (last 24 hours): Temp Pulse Resp BP Pulse Ox 98.6 F 98 H 20 124/75 93 L 09/09/18 19:54 09/09/18 19:54 09/09/18 19:54 09/09/18 19:54 09/09/18 19:54 - Medications Medications: Current Medications Aspirin (Aspirin Chewable) 81 mg PO DAILY [facility] Last Admin: 09/10/18 08:21 Dose: 81 mg Calcium/Vitamin D (Oyster Shell Calcium/Vitamin D 500 Mg-200 Iu) 1 tab PO DAILY [facility] Last Admin: 09/10/18 08:21 Dose: 1 tab Lactulose (Enulose) 20 gm PO DAILY PRN PRN Reason: Constipation Last Admin: 09/07/18 12:42 Dose: 20 gm Levalbuterol HCl (Xopenex) 1.25 mg INH RQ8 PRN PRN Reason: Shortness of Breath Prednisone (Prednisone Tab) 20 mg PO DAILY [facility] Last Admin: 09/10/18 08:21 Dose: 20 mg Promethazine HCl/Codeine (Phenergan/Codeine Oral Syrup) 10 ml PO Q4 PRN PRN Reason: Cough Last Admin: 09/10/18 03:32 Dose: 10 ml Fluticasone/Salmeterol (Advair Diskus 250/50) 1 puff IH Q12 [facility] Last Admin: 09/10/18 08:21 Dose: 1 puff Sucralfate (Carafate Oral Susp) 1 gm PO 0730,1130,1630,2200 [facility] Last Admin: 09/10/18 06:54 Dose: 1 gm Tiotropium [place] (Spiriva) 18 mcg IH DAILY [facility] Last Admin: 09/10/18 08:21 Dose: 18 mcg Zolpidem Tartrate (Ambien) 5 mg PO HS [facility] Last Admin: 09/09/18 22:04 Dose: 5 mg - Labs Labs: 09/06/18 05:37 09/07/18 11:25 - Respiratory Exam Respiratory Exam: Clear to Ausculation Bilateral - Cardiovascular Exam Cardiovascular Exam: REGULAR RHYTHM, +S1, +S2 - Extremities Exam Additional comments: NO LOWER EXTREMITY EDEMA Assessment and Plan - Assessment and Plan (Free Text) Assessment: COPD EXACERBATION ATYPICAL CHEST PAIN Plan: FOR DISCHARGE TODAY FOR PHARMACOLOGICAL STRESS TEST OUT PATIENT WHEN PATIENT FEELS UP TO IT
[2018-09-10 19:58] VITALS: TEMP 98.1
[2018-09-11] MEDS: Sucralfate 1 gm/10 ml Oral Susp UD PO SCH (07:20)
[2018-09-11 08:04] VITALS: BP 137/78; PULSE 79; RESP 22; O2SAT 97
--- NOTE | 2018-09-11 08:14 | CP.PCM.PN ---
Subjective - Date & Time of Evaluation Date of Evaluation: 09/11/18 Time of Evaluation: 08:17 - Subjective Subjective: SHORTNESS OF BREATH RESIOLVED NO CHEST PAINS OR COUGH Objective - Vital Signs/Intake and Output Vital Signs (last 24 hours): Temp Pulse Resp BP Pulse Ox 98.1 F 79 22 137/78 97 09/11/18 08:03 09/11/18 08:03 09/11/18 08:03 09/11/18 08:03 09/11/18 08:03 - Medications Medications: Current Medications Aspirin (Aspirin Chewable) 81 mg PO DAILY [facility] Last Admin: 09/10/18 08:21 Dose: 81 mg Calcium/Vitamin D (Oyster Shell Calcium/Vitamin D 500 Mg-200 Iu) 1 tab PO DAILY [facility] Last Admin: 09/10/18 08:21 Dose: 1 tab Lactulose (Enulose) 20 gm PO DAILY PRN PRN Reason: Constipation Last Admin: 09/07/18 12:42 Dose: 20 gm Levalbuterol HCl (Xopenex) 1.25 mg INH RQ8 PRN PRN Reason: Shortness of Breath Prednisone (Prednisone Tab) 20 mg PO DAILY [facility] Last Admin: 09/10/18 08:21 Dose: 20 mg Promethazine HCl/Codeine (Phenergan/Codeine Oral Syrup) 10 ml PO Q4 PRN PRN Reason: Cough Last Admin: 09/10/18 22:16 Dose: 10 ml Fluticasone/Salmeterol (Advair Diskus 250/50) 1 puff IH Q12 [facility] Last Admin: 09/10/18 22:15 Dose: 1 puff Sucralfate (Carafate Oral Susp) 1 gm PO 0730,1130,1630,2200 [facility] Last Admin: 09/11/18 07:20 Dose: 1 gm Tiotropium [place] (Spiriva) 18 mcg IH DAILY [facility] Last Admin: 09/10/18 08:21 Dose: 18 mcg Zolpidem Tartrate (Ambien) 5 mg PO HS [facility] Last Admin: 09/10/18 22:15 Dose: 5 mg - Labs Labs: 09/06/18 05:37 09/07/18 11:25 - Constitutional Appears: Well, No Acute Distress - Head Exam Head Exam: ATRAUMATIC, NORMAL INSPECTION, NORMOCEPHALIC - Eye Exam Eye Exam: EOMI, Normal appearance, PERRL Pupil Exam: NORMAL ACCOMODATION, PERRL - ENT Exam ENT Exam: Mucous Membranes Moist, Normal Exam - Neck Exam Neck Exam: Full ROM, Normal Inspection. absent: Lymphadenopathy - Respiratory Exam Respiratory Exam: Clear to Ausculation Bilateral, NORMAL BREATHING PATTERN - Cardiovascular Exam Cardiovascular Exam: REGULAR RHYTHM, +S1, +S2. absent: Murmur - GI/Abdominal Exam GI & Abdominal Exam: Soft, Normal Bowel Sounds. absent: Tenderness - Rectal Exam Rectal Exam: NORMAL INSPECTION - Extremities Exam Extremities Exam: Full ROM, Normal Capillary Refill, Normal Inspection. absent: Joint Swelling, Pedal Edema - Back Exam Back Exam: NORMAL INSPECTION - Neurological Exam Neurological Exam: Alert, Awake, CN II-XII Intact, Normal Gait, Oriented x3 - Psychiatric Exam Psychiatric exam: Normal Affect, Normal Mood - Skin Skin Exam: Dry, Intact, Normal Color, Warm Assessment and Plan (1) Anxiety Status: Acute (2) Bronchitis Status: Resolved (3) COPD (chronic obstructive pulmonary disease) Assessment & Plan: BRONCHITIS RESOLVED Status: Acute (4) COPD exacerbation Status: Resolved (5) Chest pain Status: Acute (6) DVT prophylaxis Status: Acute (7) Multifocal atrial tachycardia Status: Acute (8) Thyroid nodule Status: Acute (9) Physical deconditioning Status: Acute - Assessment and Plan (Free Text) Assessment: BRONCHITIS RESOLVED COPD STABLE ALL OTHER THERAPIES HAVE BEEN EXHAUSTED PATIENT WILL NEED HOME OXYGEN 2L/MIN CONTINOUS
[2018-09-11] MEDS: Fluticasone-Salmeterol 250-50mcg Diskus IH SCH (08:58)
[2018-09-11] MEDS: Calcium-Vit D 500 mg-200 Units Tab UD PO SCH (08:59)
[2018-09-11] MEDS: Tiotropium 18 mcg Cap For Inhalation IH SCH (08:59)
== END 2018-09-11 13:00 | disposition home health service (06) | DRG 191 ==
LOC: H.TCU 15:21
PROVIDERS: ADMIT Internal Medicine Pulmonary Disease; ATTEND Internal Medicine Pulmonary Disease
PROC: 3E0F7GC Introduction of Other Therapeutic Substance into Respiratory Tract, Via Natural or Artificial Opening (ICD-10-PCS; principal; 2018-09-05)
PROC: F07M6FZ Therapeutic Exercise Treatment of Musculoskeletal System - Whole Body using Assistive, Adaptive, Supportive or Protective Equipment (ICD-10-PCS; 2018-09-05)
DX: J44.1 Chronic obstructive pulmonary disease with (acute) exacerbation (principal); I47.1 Supraventricular tachycardia; K29.70 Gastritis, unspecified, without bleeding; R09.02 Hypoxemia; T17.990A Other foreign object in respiratory tract, part unspecified in causing asphyxiation, initial encounter; Z87.891 Personal history of nicotine dependence; Z90.49 Acquired absence of other specified parts of digestive tract; R00.2 Palpitations; E04.2 Nontoxic multinodular goiter; E78.00 Pure hypercholesterolemia, unspecified; F41.9 Anxiety disorder, unspecified; I48.91 Unspecified atrial fibrillation; J06.9 Acute upper respiratory infection, unspecified; Z99.81 Dependence on supplemental oxygen; R07.89 Other chest pain